=== PATIENT | female | born 1950 | race Caucasian/White ===

== ENCOUNTER 2020-04-13 05:12 | Emergency (ER) | payer MEDICARE ==
--- OUTSIDE RECORDS SUMMARY | 2020-04-13 05:14 | XMS REPORT | Summary of Care ---
:1950 Author Organization [facility] Address [address] [place] [id number] Care Team Providers Name Role Phone Mabel Queen MD Primary Care Provider Reason for Referral Radiology Services (Routine) Status Reason Specialty Diagnoses / Referred By Referred To Procedures Contact Contact New Request Diagnostic Diagnoses Chronic pain of right upper extremity [place], Radiology Procedures XR ELBOW <3 VW RIGHT Kobi Monroe MD [address] [place] [address] [place] [address] Radiology Services (Routine) Status Reason Specialty Diagnoses / Referred By Referred To Procedures Contact Contact New Request Diagnostic Diagnoses Chronic pain of right upper extremity [place], Radiology Procedures XR SHOULDER 2+ VW RIGHT Kobi Monroe MD [address] [place] [address] [place] [address] Reason for Visit Radiology Services (Routine) Status Reason Specialty Diagnoses / Referred By Referred To Procedures Contact Contact New Request Diagnostic Diagnoses Chronic pain of right upper extremity [place], Radiology Procedures XR SHOULDER 2+ VW RIGHT Kobi Monroe MD [address] [place] [address] [place] [address] Encounter Details Date Type Department Care Team Description 01/18/2020 Hospital Encounter [facility] Bran Camilo Arrived [facility] [address] [place] [address] Dr moreland [address] [place] [address] [place] [address] [place] [address] [phone] Allergies Active Allergy Reactions Severity Noted Date Comments Iodine Hives, Itching, Rash 01/11/2020 Latex Hives, Rash 01/11/2020 Morphine Anaphylaxis 01/11/2020 documented as of this encounter (statuses as of 01/19/2020) Medications Medication Sig Dispensed Refills Start Date End Date Status amLODIPine 5 mg Take 1 tablet by 30 tablet 5 01/11/2020 Active tabletIndications: mouth daily. Essential hypertension documented as of this encounter (statuses as of 01/19/2020) Active Problems Problem Noted Date Chronic pain of right upper extremity 01/17/2020 Overview: x 9 months since fall History of kidney cancer 01/11/2020 Type 2 diabetes mellitus, without long-term current us e of insulin 01/11/2020 Fibromyalgia Essential hypertension documented as of this encounter (statuses as of 01/19/2020) Social History Tobacco Use Types Packs/Day Years Used Date Never Smoker Smokeless Tobacco: Never Used Alcohol Use Drinks/Week oz/Week Comments Never Alcohol Habits Answer Date Recorded How often do you have a drink containing alcohol? Never 01/11/2020 How many drinks containing alcohol do you have on a typical Not asked 01/11/2020 day when you are drinking? How often do you have six or more drinks on one occasion? Ne leila 01/11/2020 Sex Assigned at Date Recorded Not on file COVID-19 Exposure Response Date Recorded In the last month, have you been in contact with No / Unsure 01/18/2020 7:51 AM CDT someone who was confirmed or 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 documented as of this encounter Last Filed Vital Signs Not on filedocumented in this encounter Plan of Treatment Health Maintenance Due Date Last Done Comments EYE EXAM 01/14/1962 FOOT EXAM 01/14/1970 DTaP,Tdap,and Td Vaccines (1 - Tdap) 01/14/1971 Breast Cancer Screening (MAMMOGRAM) 1992 COLON CANCER SCREENING ANNUAL FIT/FOBT 01/14/2002 COLON CANCER SCREENING FIT DNA EVERY 3 YEARS 01/14/2002 COLON CANCER SCREENING SIGMOIDOSCOPY EVERY 5 YEARS 01/14/2002 COLONOSCOPY 01/14/2002 Colorectal Cancer Screening 01/14/2002 Zoster Recombinant Vaccine (SHINGRIX) (1 of 2) 01/14/2002 Medicare Wellness Visit 01/14/2017 Osteoporosis Screening 01/14/2017 PNEUMOCOCCAL VACCINES 65+ (1 of 1 - PPSV23) 01/14/2017 INFLUENZA VACCINE (#1) 2020 HgA1C 07/13/2020 01/11/2020 CREATININE (SERUM) 01/10/2021 01/11/2020 Depression Screening 01/10/2021 01/11/2020 LDL-C 01/10/2021 01/11/2020 URINE MICROALBUMIN 01/10/2021 01/11/2020 HEPATITIS C (HCV) SCREEN Completed 01/11/2020 documented as of this encounter Procedures Procedure Name Priority Date/Time Associated Diagnosis Comme nts XR SHOULDER 2+ VW Routine 01/18/2020 8:28 AM Chronic pain of Results for this RIGHT CDT right upper procedure are i n extremity the results section. XR ELBOW <3 VW Routine 01/18/2020 8:28 AM Chronic pain of Res ults for this RIGHT CDT right upper procedure are i n extremity the results section. documented in this encounter Results XR ELBOW <3 VW RIGHT (01/18/2020 8:28 AM CDT) Specimen Narrative Performed At HISTORY: Pain. S/P fall 9 months ago. PACS/VR/DOSE FINDINGS: AP and lateral views of right elbow showed n o acute fracture or dislocation. No significant elbow joint effusion or ag gressive bone lesions seen. Mild degenerative changes are seen in the articular edges of the olecranon process and coronoid process of the ulna. Os sification noted at the origin of common flexor tendon. A sm all traction osteophyte noted at the insertion of triceps tendon. CONCLUSIONS: No acute fracture or disloc ation in 2 views of right elbow. Procedure Note [facility], [facility] Results Inft User - 2019 8:33 AM CDT HISTORY: Pain. S/P fall 9 months ago. FINDINGS: AP and lateral views of right elbow showed no acute fracture or dislocation. No significant elbow joint effusion or aggressive bone lesions seen. Mild degenerative changes are seen in the articular edges of the olecranon process and coronoid process o f the ulna. Ossification noted at the origin of common flexor tendon. A sm all traction osteophyte noted at the insertion of triceps tendon. CONCLUSIONS: No acute fracture or disloc ation in 2 views of right elbow. Performing Organization Address City/State/Zipcode Phone Number PACS/VR/DOSE XR SHOULDER 2+ VW RIGHT (01/18/2020 8:28 AM CDT) Specimen Narrative Performed At HISTORY: Pain. S/P fall 9 months ago. PACS/VR/DOSE FINDINGS: 3 views of right shoulder show ed no acute fracture or dislocation. No appreciable calcification seen in the rotator cuff tendons. 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 CONCLUSIONS: No acute fracture or disloc ation in right shoulder. Procedure Note [facility], [facility] Results Inft User - 2019 8:34 AM CDT HISTORY: Pain. S/P fall 9 months ago. FINDINGS: 3 views of right shoulder show ed no acute fracture or dislocation. No appreciable calcificatio n seen in the rotator cuff tendons. 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 CONCLUSIONS: No acute fracture or disloc ation in right shoulder. Performing Organization Address City/State/Zipcode Phone Number PACS/VR/DOSE documented in this encounter Visit Diagnoses Diagnosis Chronic pain of right upper extremity documented in this encounter Insurance Payer Benefit Plan / Subscriber ID Effective Phone Address T ype Group Dates [facility] [id number] 2019-Ruddy candelario [facility]ly [facility] - MEDICARE HMO MANAGED MEDICARE ADVANTAGE documented as of this encounter
--- OUTSIDE RECORDS SUMMARY | 2020-04-13 05:14 | XMS REPORT | Summary of Care ---
:1950 Author Organization [facility] Address [address] [place] [id number] Care Team Providers Name Role Phone Mabel Queen MD Primary Care Provider Reason for Referral Radiology Services (Routine) Status Reason Specialty Diagnoses / Procedures Referred By Sriram willis To Contact Contact Authorized Diagnostic Diagnoses History of kidney cancer Right flank pain Sagola, Radiology Procedures US RETROPERITONEAL COMPLETE Kobi Monroe MD [address] [place] [address] [place] [phone] Radiology Services (Routine) Status Reason Specialty Diagnoses / Referred By Referred To Procedures Contact Contact New Request Diagnostic Diagnoses Chronic pain of right upper extremity Sagola, Radiology Procedures XR ELBOW <3 VW RIGHT Kobi Monroe MD [address] [place] [address] [facility] [phone] Radiology Services (Routine) Status Reason Specialty Diagnoses / Referred By Referred To Procedures Contact Contact New Request Diagnostic Diagnoses Chronic pain of right upper extremity Bernice, Radiology Procedures XR SHOULDER 2+ VW RIGHT Kobi Monroe MD [address] [place] [address] [place] [address] (Routine) Status Reason Specialty Diagnoses / Referred By Referred To Procedures Contact Contact New Request Ophthalmology Diagnoses Type 2 diabetes mellitus with hyperglycemia, without long-term current use of insulin Sagola, Procedures CONSULT/REFERRAL OPHTHALMOLOGY Kobi Monroe MD [address] [place] [address] [place] [address] Reason for Visit Reason Comments Establish Care Other elevated blood sugar Referral/consult Encounter Details Date Type Department Care Team Description 01/11/2020 Office Visit [facility] Pediatric Kobi Queen ype 2 diabetes mellitus with hyperglycemia, without long-term current use of insulin (Primary Dx); and Adult Primary MD Mabel Essential hypertension; [facility] [address] History of kidney cancer; [address] [place], [place] Obesity ([address] [place] [address]-39.9); [address], [phone] Nutritional counseling; [place], [place] [phone] Exercise counseling; [phone] Need for hepatitis C screeni ng test; [phone] Chronic pain of right upper extremity; Right flank gordon n Allergies Active Allergy Reactions Severity Noted Date Comments Iodine Hives, Itching, Rash 01/11/2020 Latex Hives, Rash 01/11/2020 Morphine Anaphylaxis 01/11/2020 documented as of this encounter (statuses as of 01/17/2020) Medications Medication Sig Dispensed Refills Start Date End Date Status amLODIPine 5 mg Take 1 tablet by 30 tablet 5 01/11/2020 Active tabletIndications: mouth daily. Essential hypertension documented as of this encounter (statuses as of 01/17/2020) Active Problems Problem Noted Date Chronic pain of right upper extremity 01/17/2020 Overview: x 9 months since fall History of kidney cancer 01/11/2020 Type 2 diabetes mellitus, without long-term current us e of insulin 01/11/2020 Fibromyalgia Essential hypertension documented as of this encounter (statuses as of 01/17/2020) Social History Tobacco Use Types Packs/Day Years [...] been in contact with No / Unsure 01/12/2020 11:18 AM CDT someone who was confirmed or 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 documented as of this encounter Last Filed Vital Signs Vital Sign Reading Time Taken Comments Blood Pressure 167/82 01/11/2020 2:52 PM CDT Pulse 92 01/11/2020 2:52 PM CDT Temperature 36.8 C (98.3 F) 01/11/2020 2:44 PM CDT Respiratory Rate - - Oxygen Saturation 99% 01/11/2020 2:44 PM CDT Inhaled Oxygen Concentration - - Weight 103.3 kg (227 lb 12.8 oz) 01/11/2020 2:44 PM CDT Height 177.8 cm (5' 10") 01/11/2020 2:44 PM CDT Body Mass Index 32.69 01/11/2020 2:44 PM CDT documented in this encounter Patient Instructions Patient InstructionsVenita Dixon R - 01/11/2020 2:30 PM CDT Patient Education Coronavirus Disease 2019 (COVID-19): Prevention The best prevention is to not have contact with the SARS-CoV-2 virus. There is no vaccine yet. Canceling travel and other outings Stay informed about COVID-19 in your area. Follow local instructions about being in public. Be awareof events in your community that may be postponed or canceled, such as school and sporting events. You may be advised not to attend public gatherings. You will be advised to stay at least 6 feet from others as much as possible. This is called "social distancing." You may be advised to stay at home and isolate yourself as much as possible if COVID-19 is in your area. You may hear terms such as "self isolate, "quarantine," stay at home, penitentiary in place, and lockdown. The CDC advises that people should not travel to areas where there are COVID-19 outbreaks right now for any reason that is not urgent. For the most current CDC travel advisories, visit the CDC website at www.cdc.gov/coronavirus/2019- ncov/travelers.Dont go on cruises or do non-essential travel right now. When you are at home Wash your hands often. Use soap and clean, running water for at least 20 seconds. If you don't have access to soap and water, use an alcohol-based hand solutions executive cloud sales often. Make sure it has at least 60% alcohol. Don't touch your eyes, nose, or mouth unless you have clean hands. Dont kiss someone who is sick. If you need to cough or sneeze, do it into a tissue. Then throw the tissue into the trash. If youdon't have tissues, cough or sneeze into the bend of your elbow. When possible, don't touch "high-touch" shared surfaces such as doorknobs and handles, cabinet handles, and light switches. Clean frequently-touched home surfaces often with disinfectant. This includes desk surfaces, printers, phones, kitchen counters, tables, fridge door handle, bathroom surfaces, and any soiled surface. Closely follow disinfectant label instructions. Go to the CDCs detailed cleaning website at www.c dc.gov/coronavirus/2019-ncov/prepare/cleaning-disinfection.html. Check your home supplies. Consider keeping a 2-week supply of medicines, food, and other needed household items. Make a plan for childcare, work, and ways to stay in touch with others. Know who will help you ifyou get sick. Don't be around people who are sick. There is no evidence right now that animals spread SARS-CoV-2. But it's always a good idea to wash your hands after touching any animals. Don't touch animals that may be sick. Dont share eating or drinking utensils with sick people. If you leave home Stay at least 6 feet away from all people. When possible, don't touch "high-touch" public surfaces such as doorknobs and handles, cabinet handles, and light switches. If you touch these surfaces, try to clean them first with a disinfecting wipe. Or touch them using a tissue or paper towel. Use an alcohol-based hand solutions executive cloud sales often. Make sure it has at least 60% alcohol. Don't touch your eyes, nose, or mouth unless you have clean hands. If you need to cough or sneeze, do it into a tissue. Then throw the tissue into the trash. If youdon't have tissues, cough or sneeze into the bend of your elbow. Avoid public gatherings. The CDC advises wearing a cloth face mask in public. During a public health emergency, medical face masks may be reserved for healthcare workers. You may need to make a cloth face mask of your own. You can do this using a bandana, T- shirt, or other cloth. The [facility] has instructions on how to make a mask. If you are at a work site Stay at least 6 feet away from all people. Don't shake hands with anyone. Dont have in-person meetings. Meet over phone or video. Wash your hands often. Use soap and clean, running water for at least 20 seconds. If you don't have access to soap and water, use an alcohol-based hand solutions executive cloud sales often. Make sure it has at least 60% alcohol. Don't touch your eyes, nose, or mouth unless you have clean hands. The CDC advises wearing a cloth face mask in public. During a public health emergency, medical face masks may be reserved for healthcare workers. You may need to make a cloth face mask of your own. You can do this using a bandana, T- shirt, or other cloth. The [facility] has instructions on how to make a mask. When possible, don't touch "high-touch" public surfaces such as doorknobs and handles, cabinet handles, and light switches. If you touch these surfaces, clean them first with a disinfecting wipe. Ortouch them using a tissue or paper towel. Use office rashida one person at a time. Consider not having office coffee or tea, or group foods. Dont have meals in groups. Clean work surfaces often with disinfectant. This includes desk surfaces, photocopier, printer, phones, kitchen counters, fridge door handle, bathroom surfaces, and others. Dont touch other peoples personal work tools, such as phones, keyboards, pens, and other items. Dont touch other peoples eating or drinking utensils. If you need to cough or sneeze, do it into a tissue. Then throw the tissue into the trash. If youdon't have tissues, cough or sneeze into the bend of your elbow. If you feel sick in any way, go home and stay home. If you have been exposed to a person with COVID-19 If you've been exposed within that last 14 days to someone who is suspected of having COVID-19 or has tested positive for it: Call your healthcare provider and follow all instructions. Your activities and where you go likely will be restricted for up to 2 weeks. Check your community's instructions about activity restrictions. You may be directed to stay home, or "self-isolate." Take your temperature every morning and evening for at least 14 days. This is to check for fever.Keep a record of the readings. Watch for symptoms of the virus. Call your provider if you have symptoms. Call your provider first before going to any clinic or hospital. See the CDC's symptom bakery products checker. Stay home if you are sick for any reason. When to call your healthcare provider Call your healthcare provider if think you have COVID-19 symptoms. These can include fever, cough, and trouble breathing. They may also include body aches, sore throat, or diarrhea. Dont go to a healthcare facility before speaking to a healthcare provider. Last modified date: 09/06/2019 7write last reviewed this educational content on 09/01/201919990776-5777 The [employer]. [address] [place] [address]. All rights reserved. This information is not intended as a substitute for professional medical care. Always follow your healthcare professional's instructions. documented in this encounter Progress Notes Kobi Queen MD - 01/11/2020 2:30 PM CDT CC: Chief Complaint Patient presents with [facility] Other elevated blood sugar Referral/consult HPI Samantha Green is a 69 year old female new patient who presents to [facility] primary care and for f/u of DM2 and HTN. She also c/o chronic right flank pain. Additionally she reports chronic mild-moderate severity right upper extremity pain and decreased ROM from her right shoulder to her elbow s/p a fall 9 mos ago. This patient's other significant chronic medical conditions include h/o renal cancer and fibromyalgia. The patient's specialists: None. DM2 follow-up Anti-diabetic medications: None. Dietary compliance: Poor. Exercise frequency: None. Last Two A1C Results (UTMB/LC, POCT, QUEST): None. Glucose readings: 200s+ per her self monitoring lately. Associated symptoms: None. Denies chest pain, visual changes, numbness/tingling/paresthesia of extremities, ulcers, polyuria, or polydipsia. Last Ophthalmology visit: Over a year ago. HTN follow-up Antihypertensive medication(s): None. Dietary compliance: See above. Exercise frequency: See above. Blood pressure readings: Doesn't self-monitor. Associated symptoms: None. Denies chest pain, SOB, edema, orthopnea, PND, palpitations, dizziness,syncope, headaches, visual changes, or a new neuro deficit. Cardiovascular screening (ex. EKG, stress test) in the past 3 years?: Yes. Flank Pain Pain location: R flank Pain quality: aching Pain radiates to: Does not radiate Pain severity: Mild Onset quality: Gradual Duration: several months. Timing: Intermittent Progression: Unchanged Chronicity: Chronic Context: not trauma Context comment: H/o kidney cancer Relieved by: Nothing Ineffective treatments: Position changes Associated symptoms: no anorexia, no belching, no chest pain, no chills, no constipation, no cough, no diarrhea, no dysuria, no fatigue, no fever, no flatus, no hematemesis, no hematochezia, no hematuria, no melena, no nausea, no shortness of breath, no sore throat, no vaginal bleeding, no vaginal discharge and no vomiting Risk factors: being elderly and obesity Risk factors comment: /o kidney cancer Allergies Allergen Reactions Iodine Hives, Itching and Rash Latex Hives and Rash Morphine Anaphylaxis No current outpatient medications on file prior to visit. No current facility-administered medications on file prior to visit. Past Medical History: Diagnosis Date Essential hypertension Fibromyalgia History of kidney cancer 01/11/2020 Type 2 diabetes mellitus, without long-term current use of insulin 01/11/2020 Past Surgical History: Procedure Laterality Date EYE SURGERY cataract surgery LEFT HEART CATH NEPHRECTOMY Left Family History Problem Relation Age of Onset Heart Mother Cancer Father Cancer Brother Social History Socioeconomic History Marital status: Spouse name: Not on file Number of children: Not on file Years of education: Not on file Highest education level: Not on file Occupational History Not on file Social Needs Financial resource strain: Not on file Food insecurity Worry: Not on file Inability: Not on file Transportation needs Medical: Not on file Non-medical: Not on file Tobacco Use Smoking status: Never Smoker Smokeless tobacco: Never Used Substance and Sexual Activity Alcohol use: Never Frequency: Never Binge frequency: Never Drug use: Not on file Sexual activity: Not on file Lifestyle Physical activity Days per week: Not on file Minutes per session: Not on file Stress: Not on file Relationships Social connections Talks on phone: Not on file Gets together: Not on file Attends hinduism service: Not on file Active member of club or organization: Not on file Attends meetings of clubs or organizations: Not on file Relationship status: Not on file Intimate partner violence Fear of current or ex partner: Not on file Emotionally abused: Not on file Physically abused: Not on file Forced sexual activity: Not on file Other Topics Concern Not on file Social History Narrative Not on file Review of Systems Constitutional: Negative for chills, fatigue and fever. HENT: Negative. Negative for sore throat. Eyes: Negative. Respiratory: Negative. Negative for cough and shortness of breath. Cardiovascular: Negative. Negative for chest pain. Gastrointestinal: Negative. Negative for anorexia, constipation, diarrhea, flatus, hematemesis, hematochezia, melena, nausea and vomiting. Genitourinary: Positive for flank pain. Negative for dysuria, hematuria, vaginal bleeding and vaginal discharge. Musculoskeletal: Positive for arthralgias. Skin: Negative. Neurological: Negative. Psychiatric/Behavioral: Negative. Endocrine: Endocrine negative Vital signs BP (!) 167/82 | Pulse 92 | Temp 36.8 C (98.3 F) (Tympanic) | Ht 5' 10" (1.778 m) | Wt 227 lb12.8 oz (103.3 kg) | SpO2 99% | BMI 32.69 kg/m Physical Exam Constitutional: She is oriented to person, place, and time. She appears well- developed and well-nourished. No distress. HENT: Head: Normocephalic and atraumatic. Right Ear: External ear normal. Left Ear: External ear normal. Nose: Nose normal. Mouth/Throat: Oropharynx is clear and moist. Eyes: Pupils are equal, round, and reactive to light. Conjunctivae and EOM are normal. No scleral icterus. Neck: Neck supple. No JVD present. No tracheal deviation present. No thyromegaly present. Cardiovascular: Normal rate, regular rhythm, normal heart sounds and intact distal pulses. Exam reveals no gallop and no friction rub. No murmur heard. Pulmonary/Chest: Effort normal and breath sounds normal. No respiratory distress. She has no wheezes. She has no rales. Abdominal: Soft. Bowel sounds are normal. She exhibits no distension and no mass. There is no abdominal tenderness. There is no rebound and no guarding. Musculoskeletal: General: No edema. Right shoulder: She exhibits decreased range of motion, tenderness, bony tenderness, crepitus andpain. Right elbow: Tenderness found. Lymphadenopathy: She has no cervical adenopathy. Neurological: She is alert and oriented to person, place, and time. Skin: Skin is warm and dry. No rash noted. No pallor. Psychiatric: She has a normal mood and affect. Her behavior is normal. LABS: CBC CMP WBC (10*3/L) Date Value 01/11/2020 11.43 (H) NA (mmol/L) Date Value 01/11/2020 137 RBC (10*6/L) Date Value 01/11/2020 4.63 K (mmol/L) Date Value 01/11/2020 4.6 PLT (10*3/L) Date Value 01/11/2020 299 CALCIUM (mg/dL) Date Value 01/11/2020 10.1 HGB (g/dL) Date Value 01/11/2020 13.7 CL (mmol/L) Date Value 01/11/2020 104 HCT (%) Date Value 01/11/2020 40.8 BUN (mg/dL) Date Value 01/11/2020 19 LIPID PANEL CREATININE (mg/dL) Date Value 01/11/2020 0.83 CHOL (mg/dL) Date Value 01/11/2020 182 GLUCOSE (mg/dL) Date Value 01/11/2020 114 (H) LDL CHOL (mg/dL) Date Value 01/11/2020 94 CO2 TOTAL (mmol/L) Date Value 01/11/2020 23 HDL (mg/dL) Date Value 01/11/2020 39 (L) ALBUMIN Date Value Ref Range Status 01/11/2020 4.4 3.5 - 5.0 g/dL Final TRIG (mg/dL) Date Value 01/11/2020 245 (H) T PROTEIN Date Value Ref Range Status 01/11/2020 7.6 6.3 - 8.2 g/dL Final TSH TOTAL BILI Date Value Ref Range Status 01/11/2020 0.7 0.1 - 1.1 mg/dL Final TSH (mIU/L) Date Value 01/11/2020 0.17 (L) No components found for: BILIUNCOM No results found for: BILICONJ ALTv Date Value Ref Range Status 01/11/2020 62 (H) 5 - 35 U/L Final AST(SGOT) Date Value Ref Range Status 01/11/2020 56 (H) 13 - 40 U/L Final ALK PHOS Date Value Ref Range Status 01/11/2020 102 34 - 122 U/L Final ASSESSMENT/PLAN Will request the patient's outside medical records for my review. The available medical records in [facility] were reviewed. Diagnoses and all orders for this visit: Type 2 diabetes mellitus with hyperglycemia, without long-term current use of insulin Based on the history I gauge the patient's recent diabetes control as poor. The patient was told tocontinue the current treatment plan and we will reassess the patient's diabetes control with an A1c test. We reviewed the principles of following a diabetic diet including the concept of glycemic index and a referral to a Wood Machine Carver will be recommended if her diabetes control is suboptimal. The patient was advised to exercise regularly. The patient should self monitor her glucose and bring a record of glucose readings to each visit. She should see an Roving Changer at least annually for a dilated diabetic eye exam. The patient should see the Trouble Dispatcher for routine foot care and diabetic shoes if appropriate. The patient was educated regarding potential complications of diabetes including retinopathy, neuropathy, nephropathy, and cardiovascular disease. Pneumococcal and annual influenza vaccination were recommended if the patient is not UTD and has no contraindications. Statin and ACEIor ARB therapy were also recommended if they have not already been prescribed and if there are no contraindications. - CONSULT/REFERRAL OPHTHALMOLOGY - COMP. METABOLIC PANEL (91855); Standing - CBC WITH DIFF; Standing - GLYCOSYLATED HEMOGLOBIN (A1C); Standing - LIPID PANEL (92466)(TOTAL CHOLESTEROL, TRIGLYCERIDES, HDL); Standing - MICROALBUMIN URINE; Standing Essential hypertension The pathophysiology of HTN was reviewed with the patient. Secondary causes of HTN have been considered and lab evaluation was recommended. The patient's blood pressure goal is <130/<80 and the blood pressure is uncontrolled. Given the blood pressure has been repeatedly > 130/80, antihypertensive pharmacotherapy is warranted. Various antihypertensive medications were reviewed with the patient and the decision was made to start amlodipine as noted below. I recommended a low sodium diet/DASH diet along with exercise as part of a heart healthy lifestyle. The patient was instructed to self monitor her blood pressure once-twice daily varying the times when it is checked and to bring the record of readings to each office visit. The patient should follow-up sooner if the blood pressure istrending >/=130/80. An EKG should be done q1-3 years for cardiac surveillance. If not already followed by Cardiology, the patient should see a Teen Counselor for consultation if there is a family history of heart disease in a 1st degree relative, if any cardiovascular symptomatology develops, and for HTN that is resistant to treatment. I recommended immediate ER evaluation for acute symptoms suchas chest pain, SOB, syncope, etc. The patient was warned about the potential consequences of uncontrolled HTN including heart disease, renal failure, stroke, etc. - COMP. METABOLIC PANEL (73367); Standing - CBC WITH DIFF; Standing - LIPID PANEL (79542)(TOTAL CHOLESTEROL, TRIGLYCERIDES, HDL); Standing - THYROID STIMULATING HORMONE; Standing - URINALYSIS; Standing - MICROALBUMIN URINE; Standing - amLODIPine 5 mg tablet; Take 1 tablet by mouth daily. Obesity (BMI 30-39.9), Nutritional counseling, Exercise counseling Nutritional/Exercise Counseling and Education: - Counseled on diet, exercise, weight control and goals Need for hepatitis C screening test - HCV ANTIBODY; Standing Chronic pain of right upper extremity We discussed the Ddx of her pain. I suspect the patient has OA of the right shoulder and or rotatorcuff pathology. Imaging was recommended for further evaluation. Ice alt with/OR heat can be applied to painful areas (cautiously or avoid if diabetic). Tylenol Arthritis formula can be used PRN pain. NSAID therapy was not recommended given the renal, GI, and CVS risks. I will consider PT, Orthopaedics, or pain management referral based on the imaging results and the patient's response to the recommended treatment medications. - XR SHOULDER 2+ VW RIGHT; Future - XR ELBOW <3 VW RIGHT; Future Right flank pain, History of kidney cancer We discussed the Ddx of flank pain. The etiology of the patient's pain is unclear. A lab and imaging work-up were undertaken as noted. I recommended that she increase his intake of non-caffeinated fluids. Tylenol PRN pain. A muscle relaxant can be considered. ER precautions were given for severepain, pain w/ fever, intractable vomiting, gross hematuria, urinary retention, etc. - COMP. METABOLIC PANEL (28062); Standing - CBC WITH DIFF; Standing - URINALYSIS; Standing - US RETROPERITONEAL COMPLETE; Future Plan of care, desired health behaviors, goals, Ddx, and any prescribed medications were discussed with the patient. This visit did not involve counseling and coordination that comprised more than 50% of the visit time. Education resources and self-management tools were provided and reviewed with the AVS. Patient/guardian/family verbalized understanding and agrees to the plan of care. Barriers tocare: None. Ability to manage care: Good. Advanced care planning (living will) information was not given/offered to the patient to review for discussion at a future visit. If applicable, the [facility] database was accessed to review any controlled substance prescription claims data. If the patient is taking prescribed medications, the [employer] prescription claims data in [employer] was reviewed to assess patient compliance with the medication treatment plan. COVID-19 precautions given including frequent handwashing, social distancing, cleaning and disinfecting, indications for testing, etc. Follow-up: Return TBD based on diagnostic testing. Follow-up sooner if any problems or concerns. Scribe Attestation Venita Chery , am scribing for, and in the presence of, Kobi Queen MD who performed the services described here-in. Venita Dixon, January 11, 2020, 2:31 PM Physician Attestation I, Kobi Queen MD, personally performed the services described in this documentation , as scribed by, Venita Dixon in my presence and it is both accurate and complete. Kobi Queen MD January 11, 2020, 2:31 PM documented in this encounter Plan of Treatment Date Type Specialty Care Team Description 01/18/2020 Appointment Radiology Julian Queen MD [address] [place] [address] [phone] Name Type Priority Associated Diagnoses Order S chedule XR SHOULDER 2+ VW RIGHT IMAGING Routine Chronic pain of r ight Expected: upper extremity 01/11/2020, Expires: 2020 XR ELBOW <3 VW RIGHT IMAGING Routine Chronic pain of righ t Expected: upper extremity 01/11/2020, Expires: 2020 US RETROPERITONEAL COMPLETE IMAGING Routine History of ki dney Expected: cancer 01/11/2020, Right flank pain Expires: Health Maintenance Due Date Last Done Comments [...] Completed 01/11/2020 documented as of this encounter Results MICROALBUMIN URINE (01/11/2020 3:31 PM CDT) Pathologist Sig nature CREAT U 144.0 mg/dL [facility] MICROALB U 12 0 - 45 ug/mL [facility] MICROAL/CR 8 0 - 30 mg/g of [facility] creatinine SERVICES Specimen Urine Narrative Performed At Normal: <30 mg/g creatinine [facility] Microalbuminuria: 30 - 299 mg/g creatini ne Clinical albuminuria: > 300 mg/g creatinine Performing Organization Address City/State/Zipcode Phone Number [facility] CLIA: [id number] [place] [address] [place] [address] URINALYSIS (01/11/2020 3:31 PM CDT) Pathologist Sig nature APPEARANCE Clear Clear [facility] COLOR Yellow Yellow [facility] PH 5.0 4.8 - 8.0 [facility] SP GRAVITY 1.019 1.003 - 1.030 [facility] GLU U QUAL Normal Normal [facility] BLOOD Negative Negative [facility] KETONES Negative Negative [facility] PROTEIN Negative Negative [facility] UROBILIN Normal Normal [facility] BILIRUBIN Negative Negative [facility] NITRITE Negative Negative [facility] LEUK KAHLIL Negative Negative [facility] RBC/HPF 2 0 - 3 HPF [facility] WBC/HPF 1 0 - 5 HPF [facility] BACTERIA Few (A) Negative [facility] MUCOUS Slight (A) Negative LPF [facility] SQ EPITH 5 HPF [facility] Specimen Urine - URINE, CLEAN CATCH Performing Organization Address [facility] Phone Number [facility] CLIA: [id number] [place] [address] THYROID STIMULATING HORMONE (01/11/2020 3:29 PM CDT) Pathologist Sig nature TSH 0.17 (L) 0.45 - 4.70 mIU/L [facility] Specimen Blood Performing Organization Address [facility] Phone Number [facility] CLIA: [id number] [place] [address] LIPID PANEL ([id number])(TOTAL CHOLESTEROL, TRIGLYCERIDES, HDL) (01/11/2020 3:29 PM CDT) Pathologist Sig nature CHOL 182 120 - 200 mg/dL [facility] HDL 39 (L) >50 mg/dL [facility] HDLC RATIO 4.7 (H) <=4.5 [facility] TRIG 245 (H) 30 - 170 mg/dL [facility] LDL CHOL 94 <=160 mg/dL [facility] VLDL 49 5 - 60 mg/dL [facility] Specimen Blood Performing Organization Address [facility] Phone Number [facility] CLIA: [id number] [place] [address] HCV ANTIBODY (01/11/2020 3:29 PM CDT) Pathologist Sig nature HCV Ab Negative [facility] HCV Semi-Quantitative 0.01 [facility] Specimen Blood Performing Organization Address City/[facility] Phone Number [facility] CLIA: [id number] [place] [address] [place] [address] GLYCOSYLATED HEMOGLOBIN (A1C) (01/11/2020 3:29 PM CDT) Pathologist Sig nature HGB A1C 6.2 (H) 4.0 - 6.0 % [facility] Specimen Blood Narrative Performed At %A1C (NGSP) Interpretation (ADA) [facility] 4.8-5.6 Normal or (Non-Diabetic Ra nge) 5.7-6.4 Increased Risk (Pre-Diabet ic) >6.5 Diabetes Indicated Performing Organization Address [facility] Phone Number [facility] CLIA: [id number] [place] [address] CBC WITH DIFF (01/11/2020 3:29 PM CDT) Pathologist Sig nature WBC 11.43 (H) 4.30 - 11.10 [facility] 10*3/L [facility] RBC 4.63 3.93 - 5.25 [facility] 10*6/L [facility] HGB 13.7 11.6 - 15.0 [facility] g/dL [facility] HCT 40.8 35.7 - 45.2 % [facility] MCV 88.1 80.6 - 95.5 fL [facility] MCH 29.6 25.9 - 32.8 pg [facility] MCHC 33.6 31.6 - 35.1 [facility] g/dL [facility] RDW-SD 40.4 39.0 - 49.9 fL [facility] RDW-CV 12.6 12.0 - 15.5 % [facility] PLT 299 166 - 358 [facility] 10*3/L [facility] MPV 10.2 9.5 - 12.9 fL [facility] NRBC/100 WBC 0.0 0.0 - 10.0 /100 [facility] WBCs [facility] NRBC x10^3 <0.01 10*3/L [facility] GRAN MAT (NEUT) % 69.5 % [facility] IMM GRAN % 0.90 % [facility] LYMPH % 23.0 % [facility] MONO % 4.5 % [facility] EOS % 1.4 % [facility] BASO % 0.7 % [facility] GRAN MAT x10^3(ANC) 7.94 (H) 1.88 - 7.09 [facility] 10*3/uL [facility] IMM GRAN x10^3 0.10 (H) 0.00 - 0.06 [facility] 10*3/uL [facility] LYMPH x10^3 2.63 1.32 - 3.29 [facility] 10*3/uL [facility] MONO x10^3 0.52 0.33 - 0.92 [facility] 10*3/uL [facility] EOS x10^3 0.16 0.03 - 0.39 [facility] 10*3/uL [facility] BASO x10^3 0.08 (H) 0.01 - 0.07 [facility] 10*3/uL [facility] Specimen Blood Performing Organization Address City/State/Zipcode Phone Number [facility] CLIA: [id number] [place] [address] COMP. METABOLIC PANEL ([id number]) (01/11/2020 3:29 PM CDT) Pathologist Sig nature NA 137 135 - 145 [facility] mmol/L [facility] K 4.6 3.5 - 5.0 [facility] mmol/L [facility] CL 104 98 - 108 mmol/L [facility] CO2 TOTAL 23 23 - 31 mmol/L [facility] AGAP 10 2 - 16 [facility] BUN 19 7 - 23 mg/dL [facility] GLUCOSE 114 (H) 70 - 110 mg/dL [facility] CREATININE 0.83 0.50 - 1.04 [facility] mg/dL [facility] TOTAL BILI 0.7 0.1 - 1.1 mg/dL [facility] CALCIUM 10.1 8.6 - 10.6 [facility] mg/dL [facility] T PROTEIN 7.6 6.3 - 8.2 g/dL [facility] ALBUMIN 4.4 3.5 - 5.0 g/dL [facility] ALK PHOS 102 34 - 122 U/L [facility] ALTv 62 (H) 5 - 35 U/L [facility] AST(SGOT) 56 (H) 13 - 40 U/L [facility] eGFR Calculation 68.6 mL/min/1.73m2 [facility] ([facility] [place]) eGFR Calculation 83.1 mL/min/1.73m2 [facility] () [facility] Specimen Blood Narrative Performed At Association of Glomerular Filtration Rate (GFR) [facility] and Staging of Kidney Disease* + + +- + | GFR (mL/min/1.73 m2) | With Kidney Damage | Without Kidney Damage + + +- + | >90 | Stage one | Normal + + +- + | 60-89 | Stage two | Decreased GFR + + +- + | 30-59 | Stage three | Stage three + + +- + | 15-29 | Stage four | Stage four + + +- + | <15 (or dialysis) | Stage five | Stage five + + +- + *Each stage assumes the associated GFR level has been in effect for at least three months. Stages 1 to 5, with or without kidney disease, indicate chronic kidney disease. Notes: Determination of stages one and two (with eGFR >59mL/min/1.73 m2) requires estimation of kidney damage for at least three months as defined by structural or functional abnormalities of the kidney, manifested by either: Pathological abnormalities or Markers of kidney damage (including abnormalities in the composition of the blood or urine or abnormalities in imaging tests). Performing Organization Address City/State/Zipcode Phone Number [facility] CLIA: [id number] [place] [address] [facility] [address] documented in this encounter Visit Diagnoses Diagnosis Type 2 diabetes mellitus with hyperglyce bryan, without long-term current use of insulin - Primary Essential hypertension Unspecified essential hypertension History of kidney cancer Personal history of malignant neoplasm o f kidney Obesity (BMI 30-39.9) Obesity, unspecified Nutritional counseling Exercise counseling Need for hepatitis C screening test Special screening examination for other specified viral diseases Chronic pain of right upper extremity Right flank pain Abdominal pain, unspecified site documented in this encounter Insurance Payer Benefit Plan / Subscriber ID Effective Phone Address T ype Group Dates [facility] [id number] 2019-Ruddy candelario [facility] - MEDICARE nt HMO MANAGED MEDICARE ADVANTAGE documented as of this encounter
--- OUTSIDE RECORDS SUMMARY | 2020-04-13 05:14 | XMS REPORT | Continuity of Care Document ---
:1950 Author Organization [facility] t Address [address] [place] [address] Care Team Providers Name Role Phone Lab, Guille Pob I Attending Clinician Unavailable Mabel Queen MD Attending Clinician Ben CARRERO Attending Clinician Doctor Unassigned, Name Attending Clinician Unavailable Problems This patient has no known problems. Allergies, Adverse Reactions, Alerts This patient has no known allergies or adverse reactions. Medications This patient has no known medications. Procedures This patient has no known procedures. 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 00:00:00 00:00:00 Only Unassigned, DRU [id number] [place] [facility] [phone] [id number] 2020-04-04 2020-04-04 [facility] [id number] 00:00:00 00:00:00 Kobi Witt [id number] [place] [id number] Professio [phone] nal [facility] Building 2020-03-31 2020-03-31 Telemedici [facility] [id number] 13:57:45 17:47:16 ne Visit Kobi Rdz [id number] [place] [id number] Professio [phone] [place] [address] [address] 2020-03-24 2020-03-24 Office [facility] [id number] 15:20:22 16:25:56 Visit Kirstie CRISTEL [id number] [place] [id number] C[facility] [phone] [facility] Results This patient has no known results.
--- OUTSIDE RECORDS SUMMARY | 2020-04-13 05:14 | XMS REPORT | Summary of Care ---
:1950 Author Organization [facility] Address [address] [place] [address] Care Team Providers Name Role Phone Mabel Queen MD Primary Care Provider Encounter Details Date Type Department Care Team Description 01/18/2020 Orders Only [facility] Doctor Unassigned, No [address] [facility] [place] [address] [address] [place] [address] Allergies Active Allergy Reactions Severity Noted Date Comments Iodine Hives, Itching, Rash 01/11/2020 Latex Hives, Rash 01/11/2020 Morphine Anaphylaxis 01/11/2020 documented as of this encounter (statuses as of 01/18/2020) Medications Medication Sig Dispensed Refills Start Date End Date Status amLODIPine 5 mg Take 1 tablet by 30 tablet 5 01/11/2020 Active tabletIndications: mouth daily. Essential hypertension documented as of this encounter (statuses as of 01/18/2020) Active Problems Problem Noted Date Chronic pain of right upper extremity 01/17/2020 Overview: x 9 months since fall History of kidney cancer 01/11/2020 Type 2 diabetes mellitus, without long-term current us e of insulin 01/11/2020 Fibromyalgia Essential hypertension documented as of this encounter (statuses as of 01/18/2020) Social History Tobacco Use Types Packs/Day Years [...] filedocumented in this encounter Plan of Treatment Date Type Specialty Care Team Description 01/18/2020 Appointment Radiology Julian Queen MD [address] [place] [address] [phone] Health Maintenance Due Date Last Done Comments [...] Name Priority Date/Time Associated Diagnosis Comme nts ASSIGNMENT OF BENEFITS Routine 01/18/2020 7:47 AM CDT documented in this encounter Results Not on filedocumented in this encounter Insurance Payer Benefit Plan / Subscriber ID Effective Phone Address T ype Group Dates [employer] [id number] 2019-Prese Me dicare Adv HEALTHCARE - MEDICARE nt O MANAGED MEDICARE ADVANTAGE documented as of this encounter
--- OUTSIDE RECORDS SUMMARY | 2020-04-13 05:14 | XMS REPORT | Summary of Care ---
:1950 Author Organization [facility] Address [address] [place] [address] Care Team Providers Name Role Phone Mabel Queen MD Primary Care Provider Reason for Referral Radiology Services (Routine) Status Reason Specialty Diagnoses / Procedures Referred By Sriram willis To Contact Contact Authorized Diagnostic Diagnoses History of kidney cancer Right flank pain [place], Radiology Procedures US RETROPERITONEAL COMPLETE Kobi Monroe MD [address] [place] [address] [place] [phone] Radiology Services (Routine) Status Reason Specialty Diagnoses / Referred By Referred To Procedures Contact Contact New Request Diagnostic Diagnoses Chronic pain of right upper extremity [place], Radiology Procedures XR ELBOW <3 VW RIGHT Kobi Monroe MD [address] [place] [address] [facility] [phone] Radiology Services (Routine) Status Reason Specialty Diagnoses / Referred By Referred To Procedures Contact Contact New Request Diagnostic Diagnoses Chronic pain of right upper extremity [place], Radiology Procedures XR SHOULDER 2+ VW RIGHT Kobi Monroe MD [address] [place] [address] [place] [address] (Routine) Status Reason Specialty Diagnoses / Referred By Referred To Procedures Contact Contact New Request Ophthalmology Diagnoses Type 2 diabetes mellitus with hyperglycemia, without long-term current use of insulin [place], Procedures CONSULT/REFERRAL OPHTHALMOLOGY Kobi Monroe MD [address] [place] [address] [place] [address] Reason for Visit Reason Comments Establish Care Other elevated blood sugar Referral/consult Encounter Details Date Type Department Care Team Description 01/11/2020 Office Visit [facility] Pediatric Kobi Queen ype 2 diabetes mellitus with hyperglycemia, without long-term current use of insulin (Primary Dx); and Adult Primary MD Mabel Essential hypertension; [facility] [address] History of kidney cancer; [address] [place], [place] Obesity (B IA 30-39.9); Drive, [address] [address] Nutritional counseling; [place], [place] [phone] Exercise counseling; [phone] Need for hepatitis C screeni ng test; [phone] Chronic pain of right upper extremity; Right [...] as "self isolate, "quarantine," stay at home, senior care in place, and lockdown. The CDC advises [...] soap and water, use an alcohol-based hand director of planning often. Make sure it has at least [...] or paper towel. Use an alcohol-based hand director of planning often. Make sure it has at least [...] bandana, T- shirt, or other cloth. The [facility] has instructions on how to make a [...] soap and water, use an alcohol-based hand director of planning often. Make sure it has at least [...] bandana, T- shirt, or other cloth. The [facility] has instructions on how to make a [...] clinic or hospital. See the CDC's symptom baggage checker. Stay home if you are sick for any reason. When to call your healthcare provider Call your healthcare provider if think you have COVID-19 symptoms. These can include fever, cough, and trouble breathing. They may also include body aches, sore throat, or diarrhea. Dont go to a healthcare facility before speaking to a healthcare provider. Last modified date: 09/06/2019 [employer] last reviewed this educational content on 09/01/201919991255-5619 The [employer]. [address] [place] [address]. All rights reserved. This information is not intended as a substitute for professional medical care. Always follow your healthcare professional's instructions. documented in this encounter Progress Notes Kobi Queen MD - 01/11/2020 2:30 PM CDT CC: Chief Complaint Patient presents with [facility] Other elevated blood sugar Referral/consult HPI Samantha Green is a 69 year old female new patient who presents to on [facility] primary care and for f/u of DM2 [...] file Gets together: Not on file Attends islam service: Not on file Active member of [...] my review. The available medical records in [facility] were reviewed. Diagnoses and all orders for [...] glycemic index and a referral to a Mold Yard Supervisor will be recommended if her diabetes control is suboptimal. The patient was advised to exercise regularly. The patient should self monitor her glucose and bring a record of glucose readings to each visit. She should see an Bracelet Form Coverer at least annually for a dilated diabetic eye exam. The patient should see the Sap Project Manager for routine foot care and diabetic shoes [...] - CONSULT/REFERRAL OPHTHALMOLOGY - COMP. METABOLIC PANEL (26662); Standing - CBC WITH DIFF; Standing - GLYCOSYLATED HEMOGLOBIN (A1C); Standing - LIPID PANEL (08030)(TOTAL CHOLESTEROL, TRIGLYCERIDES, HDL); Standing - MICROALBUMIN URINE; [...] by Cardiology, the patient should see a Rice Milling Supervisor for consultation if there is a family [...] failure, stroke, etc. - COMP. METABOLIC PANEL (92644); Standing - CBC WITH DIFF; Standing - LIPID PANEL (70979)(TOTAL CHOLESTEROL, TRIGLYCERIDES, HDL); Standing - THYROID STIMULATING [...] urinary retention, etc. - COMP. METABOLIC PANEL (73303); Standing - CBC WITH DIFF; Standing - [...] at a future visit. If applicable, the [facility] database was accessed to review any controlled substance prescription claims data. If the patient is taking prescribed medications, the [employer] prescription claims data in [employer] was reviewed to assess patient compliance with [...] Description 01/18/2020 Appointment Radiology Julian Queen MD [address] [place] [address] [phone] Name Type Priority Associated Diagnoses Order [...] Pathologist Sig nature CREAT U 144.0 mg/dL [facility] MICROALB U 12 0 - 45 ug/mL [facility] MICROAL/CR 8 0 - 30 mg/g of [facility] creatinine SERVICES Specimen Urine Narrative Performed At Normal: <30 mg/g creatinine [facility] Microalbuminuria: 30 - 299 mg/g creatini ne Clinical albuminuria: > 300 mg/g creatinine Performing Organization Address City/State/Zipcode Phone Number [facility] CLIA: [id number] [place] [address] [place] [address] URINALYSIS (01/11/2020 3:31 PM CDT) Pathologist Sig nature APPEARANCE Clear Clear [facility] COLOR Yellow Yellow [facility] PH 5.0 4.8 - 8.0 [facility] SP GRAVITY 1.019 1.003 - 1.030 [facility] GLU U QUAL Normal Normal [facility] BLOOD Negative Negative [facility] KETONES Negative Negative [facility] PROTEIN Negative Negative [facility] UROBILIN Normal Normal [facility] BILIRUBIN Negative Negative [facility] NITRITE Negative Negative [facility] LEUK KAHLIL Negative Negative [facility] RBC/HPF 2 0 - 3 HPF [facility] WBC/HPF 1 0 - 5 HPF [facility] BACTERIA Few (A) Negative [facility] MUCOUS Slight (A) Negative LPF [facility] SQ EPITH 5 HPF [facility] Specimen Urine - URINE, CLEAN CATCH Performing Organization Address [facility] Phone Number [facility] CLIA: [id number] [place] [address] THYROID STIMULATING HORMONE (01/11/2020 3:29 PM CDT) Pathologist Sig nature TSH 0.17 (L) 0.45 - 4.70 mIU/L [facility] Specimen Blood Performing Organization Address [facility] Phone Number [facility] CLIA: [id number] [place] [address] LIPID PANEL (28496)(TOTAL CHOLESTEROL, TRIGLYCERIDES, HDL) (01/11/2020 3:29 PM CDT) Pathologist Sig nature CHOL 182 120 - 200 mg/dL [facility] HDL 39 (L) >50 mg/dL [facility] HDLC RATIO 4.7 (H) <=4.5 [facility] TRIG 245 (H) 30 - 170 mg/dL [facility] LDL CHOL 94 <=160 mg/dL [facility] VLDL 49 5 - 60 mg/dL [facility] Specimen Blood Performing Organization Address [facility] Phone Number [facility] CLIA: [id number] [place] [address] HCV ANTIBODY (01/11/2020 3:29 PM CDT) Pathologist Sig nature HCV Ab Negative [facility] HCV Semi-Quantitative 0.01 [facility] Specimen Blood Performing Organization Address City/[facility] Phone Number [facility] CLIA: [id number] [place] [address] [place] [address] GLYCOSYLATED HEMOGLOBIN (A1C) (01/11/2020 3:29 PM CDT) Pathologist Sig nature HGB A1C 6.2 (H) 4.0 - 6.0 % [facility] Specimen Blood Narrative Performed At %A1C (NGSP) Interpretation (ADA) [facility] 4.8-5.6 Normal or (Non-Diabetic Ra nge) 5.7-6.4 Increased Risk (Pre-Diabet ic) >6.5 Diabetes Indicated Performing Organization Address [facility] Phone Number [facility] CLIA: [id number] [place] [address] CBC WITH DIFF (01/11/2020 3:29 PM CDT) Pathologist Sig nature WBC 11.43 (H) 4.30 - 11.10 [facility] 10*3/L [facility] RBC 4.63 3.93 - 5.25 [facility] 10*6/L [facility] HGB 13.7 11.6 - 15.0 [facility] g/dL [facility] HCT 40.8 35.7 - 45.2 % [facility] MCV 88.1 80.6 - 95.5 fL [facility] MCH 29.6 25.9 - 32.8 pg [facility] MCHC 33.6 31.6 - 35.1 [facility] g/dL [facility] RDW-SD 40.4 39.0 - 49.9 fL [facility] RDW-CV 12.6 12.0 - 15.5 % [facility] PLT 299 166 - 358 [facility] 10*3/L [facility] MPV 10.2 9.5 - 12.9 fL [facility] NRBC/100 WBC 0.0 0.0 - 10.0 /100 [facility] WBCs [facility] NRBC x10^3 <0.01 10*3/L [facility] GRAN MAT (NEUT) % 69.5 % [facility] IMM GRAN % 0.90 % [facility] LYMPH % 23.0 % [facility] MONO % 4.5 % [facility] EOS % 1.4 % [facility] BASO % 0.7 % [facility] GRAN MAT x10^3(ANC) 7.94 (H) 1.88 - 7.09 [facility] 10*3/uL [facility] IMM GRAN x10^3 0.10 (H) 0.00 - 0.06 [facility] 10*3/uL [facility] LYMPH x10^3 2.63 1.32 - 3.29 [facility] 10*3/uL [facility] MONO x10^3 0.52 0.33 - 0.92 [facility] 10*3/uL [facility] EOS x10^3 0.16 0.03 - 0.39 [facility] 10*3/uL [facility] BASO x10^3 0.08 (H) 0.01 - 0.07 [facility] 10*3/uL [facility] Specimen Blood Performing Organization Address City/State/Zipcode Phone Number [facility] CLIA: [id number] [place] [address] COMP. METABOLIC PANEL ([id number]) (01/11/2020 3:29 PM CDT) Pathologist Sig nature NA 137 135 - 145 [facility] mmol/L [facility] K 4.6 3.5 - 5.0 [facility] mmol/L [facility] CL 104 98 - 108 mmol/L [facility] CO2 TOTAL 23 23 - 31 mmol/L [facility] AGAP 10 2 - 16 [facility] BUN 19 7 - 23 mg/dL [facility] GLUCOSE 114 (H) 70 - 110 mg/dL [facility] CREATININE 0.83 0.50 - 1.04 [facility] mg/dL [facility] TOTAL BILI 0.7 0.1 - 1.1 mg/dL [facility] CALCIUM 10.1 8.6 - 10.6 [facility] mg/dL [facility] T PROTEIN 7.6 6.3 - 8.2 g/dL [facility] ALBUMIN 4.4 3.5 - 5.0 g/dL [facility] ALK PHOS 102 34 - 122 U/L [facility] ALTv 62 (H) 5 - 35 U/L [facility] AST(SGOT) 56 (H) 13 - 40 U/L [facility] eGFR Calculation 68.6 mL/min/1.73m2 [facility] (Non[facility]AT[facility] [place]) eGFR Calculation 83.1 mL/min/1.73m2 [facility] () [facility] Specimen Blood Narrative Performed At Association of Glomerular Filtration Rate (GFR) [facility] and Staging of Kidney Disease* + [...] tests). Performing Organization Address City/State/Zipcode Phone Number [facility] CLIA: [id number] [place] [address] [facility] [address] documented in this encounter [...] Effective Phone Address T ype Group Dates [facility] [id number] 2019-Ruddy candelario [facility] - MEDICARE nt HMO MANAGED MEDICARE ADVANTAGE documented as of this encounter
--- OUTSIDE RECORDS SUMMARY | 2020-04-13 05:15 | XMS REPORT | Summary of Care ---
:[address] [facility] Address [address] [place] [address] Care Team Providers Name Role Phone Mabel Queen MD Primary Care Provider Reason for Referral MRI/CAT Scan (Routine) Status Reason Specialty Diagnoses / Referred By Referred To Procedures Contact Contact New Request Diagnostic Diagnoses Chronic right flank pain Personal history of renal cancer Hydronephrosis, right [place], Radiology Procedures CT ABDOMEN PELVIS WO CONTRAST Kobi Monroe MD [address] [place] [address] [place] [address] Reason for Visit Reason Comments Orders Encounter Details Date Type Department Care Team Description 01/21/2020 Case Management [facility] Pediatric Julian Queen, Orders and Adult Primary Care- MD Witt [address] [place] [address] [place] [address] [phone] [place] [address] [phone] Allergies Active Allergy Reactions Severity Noted Date Comments Iodine Hives, Itching, Rash 01/11/2020 Latex Hives, Rash 01/11/2020 Morphine Anaphylaxis 01/11/2020 documented as of this encounter (statuses as of 01/21/2020) Medications Medication Sig Dispensed Refills Start Date End Date Status amLODIPine 5 mg Take 1 tablet by 30 tablet 5 01/11/2020 Active tabletIndications: mouth daily. Essential hypertension documented as of this encounter (statuses as of 01/21/2020) Active Problems Problem Noted Date Hydronephrosis, right 01/21/2020 Chronic right flank pain 01/21/2020 Chronic pain of right upper extremity 01/17/2020 Overview: x 9 months since fall History of kidney cancer 01/11/2020 Type 2 diabetes mellitus, without long-term current us e of insulin 01/11/2020 Fibromyalgia Essential hypertension documented as of this encounter (statuses as of 01/21/2020) Social History Tobacco Use Types Packs/Day Years [...] Treatment Date Type Specialty Care Team Description 02/03/2020 Office Visit Ophthalmology Kota Elizabeth D, OD [address] [place] [address] [place] [address] [phone] Name Type Priority Associated Diagnoses Order S chedule CT ABDOMEN PELVIS WO IMAGING Routine Chronic rig ht flank pain Expected: 01/21/2020, CONTRAST Personal history of Expires: 01/20/2021 renal cancer Hydronephrosis, right Health Maintenance Due Date Last Done Comments [...] 01/11/2020 documented as of this encounter Results Not on filedocumented in this encounter Visit Diagnoses Diagnosis Hydronephrosis, right - Primary Hydronephrosis Chronic right flank pain Abdominal pain, unspecified site Personal history of renal cancer Personal history of malignant neoplasm o f kidney documented in this encounter Insurance Payer Benefit Plan / Subscriber ID Effective Phone Address T e Group [facility] SERGIO/JOANN [id number] 2019-Ruddy Bowens [facility]IC[facility] MA[facility]ED MEDICARE ADVANTAGE documented as of this encounter
--- OUTSIDE RECORDS SUMMARY | 2020-04-13 05:15 | XMS REPORT | Summary of Care ---
:1950 Author Organization [facility] Address [address] [place] [address] Care Team Providers Name Role Phone Mabel Queen MD Primary Care Provider Reason for Visit Reason Comments Diabetic Eye Exam (Routine) Status Reason Specialty Diagnoses / Procedures Referred By Sriram willis To Contact Contact Closed Ophthalmology Diagnoses Type 2 diabetes mellitus with hyperglycemia, without long-term current use of insulin Kobi Queen Procedures CONSULT/REFERRAL OPHTHALMOLOGY MD Mabel [address] [place] [address] [place] [address] Encounter Details Date Type Department Care Team Description 02/03/2020 Office Visit [facility] Eye Bharathi Elizabeth Type 2 diabetes mellitus without retinopathy (Primary Dx); [facility] D, OD Essential hypertension; [address] Pseudophakia of both eyes; [place] [address] Refractive error; [place], [place] [phone] Posterior capsular opacification, right eye [phone] Allergies Active Allergy Reactions Severity Noted Date Comments Iodine Hives, Itching, Rash 01/11/2020 Latex Hives, Rash 01/11/2020 Morphine Anaphylaxis 01/11/2020 documented as of this encounter (statuses as of 02/03/2020) Medications Medication Sig Dispensed Refills Start Date End Date Status amLODIPine 5 mg Take 1 tablet by 30 tablet 5 01/11/2020 Active tabletIndications: mouth daily. Essential hypertension documented as of this encounter (statuses as of 02/03/2020) Active Problems Problem Noted Date Hydronephrosis, right 01/21/2020 Chronic right flank pain 01/21/2020 Chronic pain of right upper extremity 01/17/2020 Overview: x 9 months since fall History of kidney cancer 01/11/2020 Type 2 diabetes mellitus, without long-term current us e of insulin 01/11/2020 Fibromyalgia Essential hypertension documented as of this encounter (statuses as of 02/03/2020) Social History Tobacco Use Types Packs/Day Years [...] been in contact with No / Unsure 02/03/2020 10:41 AM CDT someone who was confirmed or 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 documented as of this encounter Last Filed Vital Signs Vital Sign Reading Time Taken Comments Blood Pressure - - Pulse - - Temperature - - Respiratory Rate - - Oxygen Saturation - - Inhaled Oxygen Concentration - - Weight 103 kg (227 lb) 02/03/2020 10:41 AM CDT Height - - Body Mass Index 32.57 01/11/2020 2:44 PM CDT documented in this encounter Progress Notes Bharathi Elizabeth, OD - 02/03/2020 10:45 AM CDT Diabetic Surveillance Eye Examination Note: Patient is concerned for eye health and vision with concerns for possible diabetic retinopathy in the context of systemic diabetes treatment. HGB A1C (%) Date Value 01/11/2020 6.2 (H) HGB A1C (%) Date Value 01/11/2020 6.2 (H) No results found for: [id number] Patient's Medications START taking these medications No medications on file CONTINUE taking these medications which have NOT CHANGED AMLODIPINE 5 MG TABLET Take 1 tablet by mouth daily. START taking Modified Medications as Prescribed No medications on file STOP taking these medications No medications on file Encounter Diagnoses Name Primary? Type 2 diabetes mellitus without retinopathy Yes Essential hypertension Pseudophakia of both eyes Refractive error Posterior capsular opacification, right eye Discussed no evidence of active diabetic retinopathy detected at this time. Emphasized need for aggressive control and monitoring of blood sugar, blood pressure and cholesterol levels. Advised patient that HA1C should be < 7. Emphasized importance of regular eye care for diabetic retinopathy surveillance and potential sequelae of non-compliance. Patient verbalized understanding of discussion and instructions. All of the patient's questions were addressed and answered. Unless specified below, patient has refused or deferredrefractive studies today, and has opted to continue with the current glasses and / or contact lenses. Final Rx Sphere Cylinder [place] Dist [facility] Add Near [facility] Right +1.00 +1.50 145 20/40 +2.25 20/20 Left +0.75 Sphere 20/25 +2.25 20/20 Expiration Date: 02/03/2021 Discussed PCO OD and recommended YAG. Patient opts for spec rx now with plan to schedule YAG OD in the future. Disposition Patient advised to return to the clinic as scheduled for pertinent surveillance care. Bharathi Elizabeth, ELISABETH Nurse Practitioner Manager Clinical Professor Director of Ambulatory Medicine for Ophthalmology, [place] Clinical and Trimmer Hand: Geometric and Ophthalmic Optics [facility] Department of Ophthalmology And Visual Sciences documented in this encounter Plan of Treatment Date Type Specialty Care Team Description 02/10/2020 Office Visit Family Medicine Julian Queen MD [address] [place] [address] [phone] Health Maintenance Due Date Last Done [...] filedocumented in this encounter Visit Diagnoses Diagnosis Type 2 diabetes mellitus without retinop athy - Primary Type II or unspecified type diabetes freeman litus without mention of complication, not stated as uncontrolled Essential hypertension Unspecified essential hypertension Pseudophakia of both eyes Lens replaced by other means Refractive error Unspecified disorder of refraction and a ccommodation Posterior capsular opacification, right eye After-cataract, unspecified documented in this encounter Insurance Payer Benefit Plan / Subscriber ID Effective Phone Address T e Group [facility] [id number] 2019-Preszenaida candelario [facility]ALTH[facility] - MEDICARE HMO MANAGED MEDICARE ADVANTAGE documented as of this encounter
--- OUTSIDE RECORDS SUMMARY | 2020-04-13 05:15 | XMS REPORT | Summary of Care ---
:1950 Author Organization [facility] - [facility] Address [address] [place] [address] Care Team Providers Name Role Phone Mabel Queen MD Primary Care Provider Reason for Visit Reason Comments Diabetic Eye Exam (Routine) Status Reason Specialty Diagnoses / Procedures Referred By Sriram willis To Contact Contact Closed Ophthalmology Diagnoses Type 2 diabetes mellitus with hyperglycemia, without long-term current use of insulin Kobi Queen Procedures CONSULT/REFERRAL OPHTHALMOLOGY MD Mabel [address] [place] [address] [place] [address] Encounter Details Date Type Department Care Team Description 02/03/2020 Office Visit [facility] Eye Bharathi Elizabeth Type 2 diabetes mellitus without retinopathy (Primary Dx); [facility] D, OD Essential hypertension; [address] Pseudophakia of both eyes; [place] [address] Refractive error; [place], [place] [phone] Posterior capsular opacification, right eye [address] [phone] Allergies Active Allergy Reactions Severity Noted Date [...] 01/11/2020 6.2 (H) No results found for: [id number] Patient's Medications START taking these medications No [...] or contact lenses. Final Rx Sphere Cylinder [facility] Add Near [facility] Right +1.00 +1.50 145 20/40 +2.25 20/20 Left +0.75 Sphere 20/25 +2.25 20/20 Expiration Date: 02/03/2021 Discussed PCO OD and recommended YAG. Patient opts for spec rx now with plan to schedule YAG OD in the future. Disposition Patient advised to return to the clinic as scheduled for pertinent surveillance care. Bharathi Elizabeth, ELISABETH [employer] Fab[employer]ator [employer] Assembler Clinical Professor Director of Ambulatory Medicine for Ophthalmology, [place] Clinical and Mail Caller: [employer] [facility] Department of Ophthalmology And Visual Sciences documented in this encounter Plan of Treatment Date Type Specialty Care Team Description 02/10/2020 Office Visit Family Medicine Julian Queen MD [address] [place] [address] [phone] Health Maintenance Due Date Last Done [...] ID Effective Phone Address T e Group [facility] [id number] 2019-Preszenaida candelario [facility] - MEDICARE HMO MANAGED MEDICARE ADVANTAGE documented as of this encounter
--- OUTSIDE RECORDS SUMMARY | 2020-04-13 05:15 | XMS REPORT | Summary of Care ---
:1950 Author Organization [facility] - [facility] Address [address] [place] [address] Care Team Providers Name Role Phone Mabel Queen MD Primary Care Provider Reason for Visit Reason Comments Assessment Encounter Details Date Type Department Care Team Description 01/20/2020 Telephone [facility] Family Medicine Kobi Rainey MD Assessment - [address] [place] [address] [place] [address] [place] [address] [phone] Allergies Active Allergy Reactions Severity Noted Date [...] been in contact with No / Unsure 01/21/2020 11:19 AM CDT someone who was confirmed or 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 documented as of this encounter Last Filed Vital Signs Not on filedocumented in this encounter Miscellaneous Notes Telephone Encounter - Yamile Mcneal LVN - 01/21/2020 11:18 AM CDTPatient notified. Telephone Encounter - Kobi Queen MD - 01/21/2020 10:43 AM CDTThat is fine for the lab and US review but I want her to have her CT before the month is out. Ask her to call Radiology to schedule this if she doesn't hear from them by Friday. elephone Encounter - Yamile Mcneal LVN - 01/21/2020 10:22 AM CDTPatient notified and verbalized understanding. Appointment scheduled next available was 02/10/2020, does she need sooner? elephone Encounter - Yamile Mcneal LVN - 01/21/2020 10:17 AM CDT Kobi Queen MD P Ad[facility] Med Nurse She has a mild back up of urine on the right kidney but the cause is not apparent. I have ordered a CT scan for more information and I will have her f/u with Urology once the results are back. She also has mild fatty liver so I will discuss this further with her at her next appointment (see lab results message, she needs appointment for results f/u). elephone Encounter - Kobi Queen MD - 01/21/2020 10:05 AM CDTI'm sorry. You're right, I thought I had resulted her already. I have sent the results to the pool. Thanks. elephone Encounter - Kobi Queen MD - 01/20/2020 5:36 PM CDTSee results message for instructions for the patient. elephone Encounter - Elyse Sanchez - 01/20/2020 11:49 AM CDTPt stated she is still having right side pain. documented in this encounter Plan of Treatment Date Type Specialty Care Team Description 01/27/2020 Appointment Radiology Julian Queen MD [address] [address] [phone] 02/03/2020 Office Visit Ophthalmology Kota Elizabeth, OD [address] [place] [address] [place] [address] 02/10/2020 Office Visit Family Medicine Julian Queen MD [address] [phone] Health Maintenance Due Date Last Done [...] Effective Phone Address T ype Group Dates SAVANNAH SERGIO/JOANN [id number] 2019-Ruddy [facility] - MEDICARE nt HMO MANAGED MEDICARE ADVANTAGE documented as of this encounter
--- OUTSIDE RECORDS SUMMARY | 2020-04-13 05:15 | XMS REPORT | Summary of Care ---
:1950 Author Organization [facility] Address [address] [place] [address] Care Team Providers Name Role Phone Mabel Queen MD Primary Care Provider Reason for Referral MRI/CAT Scan (Routine) Status Reason Specialty Diagnoses / Referred By Referred To Procedures Contact Contact Closed Diagnostic Diagnoses Chronic right flank pain Personal history of renal cancer Hydronephrosis, right CHRONIC RIGHT FLANK PAIN PERSONAL HISTORY OF RENAL CANCER Kobi Queen Radiology Procedures CT ABDOMEN PELVIS WO CONTRAST CHG CT SCAN,ABDOMENT AND PELVIS,W/O CONTRAST CT ABDOMEN PELVIS WO CONTRAST MD Mabel [address] [place] [address] [place] [address] Reason for Visit MRI/CAT Scan (Routine) Status Reason Specialty Diagnoses / Referred By Referred To Procedures Contact Contact Closed Diagnostic Diagnoses Chronic right flank pain Personal history of renal cancer Hydronephrosis, right CHRONIC RIGHT FLANK PAIN PERSONAL HISTORY OF RENAL CANCER Kobi Queen Radiology Procedures CT ABDOMEN PELVIS WO CONTRAST CHG CT SCAN,ABDOMENT AND PELVIS,W/O CONTRAST CT ABDOMEN PELVIS WO CONTRAST MD Mabel [address] [place] [address] [place] [address] Encounter Details Date Type Department Care Team Description 01/31/[address] [facility] [facility] [place] [facility] MD Tomography [address] [facility] Dr merly PAREDES, [place] [address] [phone] Allergies Active Allergy Reactions Severity Noted Date Comments Iodine Hives, Itching, Rash 01/11/2020 Latex Hives, Rash 01/11/2020 Morphine Anaphylaxis 01/11/2020 documented as of this encounter (statuses as of 02/01/2020) Medications Medication Sig Dispensed Refills Start Date End Date Status amLODIPine 5 mg Take 1 tablet by 30 tablet 5 01/11/2020 Active tabletIndications: mouth daily. Essential hypertension documented as of this encounter (statuses as of 02/01/2020) Active Problems Problem Noted Date Hydronephrosis, right 01/21/2020 Chronic right flank pain 01/21/2020 Chronic pain of right upper extremity 01/17/2020 Overview: x 9 months since fall History of kidney cancer 01/11/2020 Type 2 diabetes mellitus, without long-term current us e of insulin 01/11/2020 Fibromyalgia Essential hypertension documented as of this encounter (statuses as of 02/01/2020) Social History Tobacco Use Types Packs/Day Years [...] Team Description 02/03/2020 Office Visit Ophthalmology Kota Elizabeth, OD [address] [place] [address] [address] [address] 02/10/2020 Office Visit Family Medicine Julian Queen MD [address] [place] [address] [phone] Health Maintenance Due Date Last Done [...] Name Priority Date/Time Associated Diagnosis Comme nts CT ABDOMEN PELVIS Routine 01/31/2020 11:35 AM Chronic right fl ank Results for this WO CONTRAST CDT pain procedure are in Personal history of the resu lts renal cancer section. Hydronephrosis, right documented in this encounter Results CT ABDOMEN PELVIS WO CONTRAST (01/31/2020 11:35 AM CDT) Specimen Impressions Performed At PACS/VR/DOSE 1. Mild right hydronephrosis and hydroureter. Abnorm ally low extension of the bladder in this patient with pelvic floor prolapse. Ureterovesical junction is also abnormally located as well, below the level of the pubic symphysis. Suspect obstruction consequen ce of altered anatomy. 2. Pelvic floor prolapse with signific ant abnormal descent of all compartments (anterior-bladder, middle- vaginal cuff, and posterior-rectum) with most pronounced abnormality in the posterior compartment. 3. Status post left nephrectomy. 4. Nonspecific stranding in the mesenteric fat with associated small lymph nodes in the left mid abdomen. 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 TECHNIQUE: Contrast -no IV contrast was given, no oral contrast was given Examination performed in prone position per renal stone protocol Noncontrast - abdomen and pelvis Reconstructions - coronal and sagittal p lanes COMPARISON: Renal ultrasound, 01/18/2020 FINDINGS: Statements: None. Thoracic: Included images of the lower chest demonstra te no abnormalities. Hepatobiliary: Subcentimeter segment 7 hepatic lesion (2:54), too small to characterize and likely benign. The gallbladder is unr emarkable. No biliary dilation. Pancreas: Pancreatic atrophy, with partial sparing of the pancreatic tail. No focal lesion. Spleen: No abnormality identified in the spleen. Adrenals: Right adrenal gland is unremar kable. Left adrenal gland is not definitely identified. Postsurgical massey ges are present in the area. Genitourinary: Mild right perinephric stranding. Mild r ight hydronephrosis and hydroureter. The bladder is displaced in feriorly in this patient with pelvic floor prolapse. Abnormal inferior extension of the bladder in this patient with pelvic floor prolapse. The dilated ureter also extends abnormally low, below the level of the p ubic symphysis. The left kidney is surgically absent. The uterus is not visualized. The vagina l cuff is also persistent abnormally low. Gastrointestinal: No evidence of bowel o bstruction or perienteric inflammation. Mild colonic diverticulosi s. Abnormal distended of the rectum and mes orectal fat at the pelvic floor, partially imaged. Vascular/Lymphatics: No enlarged lymph nodes by CT siz e criteria. Abdominal aorta is normal in caliber. MSK/Body Wall: No concerning bony lesion identified. D egenerative changes at lower lumbar facets. L2 vertebral body hemangioma. Postsurgical changes present at the anterior abdominal wall f rom prior supraumbilical hernia repair. Peritoneum/Other: No extraluminal air. No extraluminal fluid. Nonspecific stranding in the mesenteric fat in the l eft mid abdomen with associated small lymph nodes. Pattern may be seen w ith mesenteric panniculitis. Procedure Note [facility], Radiant Results Inft User - 2019 1:16 PM CDT EXAM: CT ABDOMEN PELVIS WO CONTRAST HISTORY: 70 year -old woman with h/o lef t renal cancer s/p nephrectomy who has chronic right flank pain and right h ydronephrosis of unclear cause. TECHNIQUE: Contrast -no IV contrast was given, no oral contrast was given Examination performed in prone position per renal stone protocol Noncontrast - abdomen and pelvis Reconstructions - coronal and sagittal p lanes COMPARISON: Renal ultrasound, 01/18/2020 FINDINGS: Statements: None. Thoracic: Included images of the lower c hest demonstrate no abnormalities. Hepatobiliary: Subcentimeter segment 7 h epatic lesion (2:54), too small to characterize and likely benign. The gall bladder is unremarkable. No biliary dilation. Pancreas: Pancreatic atrophy, with parti al sparing of the pancreatic tail. No focal lesion. Spleen: No abnormality identified in the spleen. Adrenals: Right adrenal gland is unremar kable. Left adrenal gland is not definitely identified. Postsurgical massey ges are present in the area. Genitourinary: Mild right perinephric stranding. Mild r ight hydronephrosis and hydroureter. The bladder is displaced in feriorly in this patient with pelvic floor prolapse. Abnormal inferior extension of the bladder in this patient with pelvic floor prolapse. The dilated ureter also extends abnormally low, below the level of the p ubic symphysis. The left kidney is surgically absent. The uterus is not visualized. The vagina l cuff is also persistent abnormally low. Gastrointestinal: No evidence of bowel o bstruction or perienteric inflammation. Mild colonic diverticulosi s. Abnormal distended of the rectum and mes orectal fat at the pelvic floor, partially imaged. Vascular/Lymphatics: No enlarged lymph n odes by CT size criteria. Abdominal aorta is normal in caliber. MSK/Body Wall: No concerning bony lesion identified. Degenerative changes at lower lumbar facets. L2 vertebral bod y hemangioma. Postsurgical changes present at the anterior abdominal wall f rom prior supraumbilical hernia repair. Peritoneum/Other: No extraluminal air. N o extraluminal fluid. Nonspecific stranding in the mesenteric fat in the l eft mid abdomen with associated small lymph nodes. Pattern may be seen w ith mesenteric panniculitis. IMPRESSION 1. Mild right hydronephrosis and hydrou reter. Abnormally low extension of the bladder in this patient with pelvic floor prolapse. Ureterovesical junction is also abnormally located as w ell, below the level of the pubic symphysis. Suspect obstruction consequen ce of altered anatomy. 2. Pelvic floor prolapse with significa nt abnormal descent of all compartments (anterior-bladder, middle- vaginal cuff, and posterior-rectum) with most pronounced abnormality in the posterior compartment. 3. Status post left nephrectomy. 4. Nonspecific stranding in the mesente moncho fat with associated small lymph nodes in the left mid abdomen. 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 panniculitis Performing Organization Address City/State/Zipcode Phone Number PACS/VR/DOSE documented in this encounter Visit Diagnoses Diagnosis Chronic right flank pain Abdominal pain, unspecified site Personal history of renal cancer Personal history of malignant neoplasm o f kidney Hydronephrosis, right Hydronephrosis documented in this encounter Insurance Payer Benefit Plan / Subscriber ID Effective Phone Address T ype Group Dates [facility] [id number] 2019-Ruddy candelario [facility] - MEDICARE [facility]/[employer] MANAGED MEDICARE ADVANTAGE documented as of this encounter
--- OUTSIDE RECORDS SUMMARY | 2020-04-13 05:15 | XMS REPORT | Summary of Care ---
:1950 Author Organization [facility] - [facility] Address [address] [place] [address] Care Team Providers Name Role Phone Mabel Queen MD Primary Care Provider Reason for Visit Reason Comments Notification Encounter Details Date Type Department Care Team Description 01/21/2020 Telephone [facility] Family Medicine Kobi Rainey MD Notification - [address] [place] [address] Dr moreland [facility] [place] [address] [place] [address] [phone] Allergies Active Allergy Reactions Severity Noted Date [...] this encounter Miscellaneous Notes Telephone Encounter - Kobi Queen MD - 01/21/2020 2:20 PM CDTShe can also try Tylenol for the pain. That is okay for her to take. elephone Encounter - Yamile Mcneal LVN - 01/21/2020 2:16 PM CDTReturning patient call she reports continued right side pain and is asking if anything can be calledin or what can be done. I advised her previously of the CT order and recommended that if she cannot tolerate the pain she is in she should be seen by either the urgent care provider or if severe the ER. She verbalized understanding. elephone Encounter - Eylse Sanchez - 01/21/2020 11:33 AM CDTPt is requesting to speak back to nurse. documented in this encounter Plan of Treatment Date Type Specialty Care Team Description 01/27/2020 Appointment Radiology Julian Queen MD [address] [place] [address] [phone] 02/03/2020 Office Visit Ophthalmology Kota Elizabeth, OD [address] [address] 02/10/2020 Office Visit Family Medicine Julian Queen MD [address] [place], [place] [address] [phone] Health Maintenance Due Date Last Done [...] Phone Address T ype Group Dates [employer]JOANN [id number] 2019-Ruddy candelario Adv HEALTHCARE - MEDICARE nt O MANAGED MEDICARE ADVANTAGE documented as of this encounter
--- OUTSIDE RECORDS SUMMARY | 2020-04-13 05:15 | XMS REPORT | Summary of Care ---
:1950 Author Organization [facility] - [facility] Address [address] [place] [address] Care Team Providers Name Role Phone Mabel Queen MD Primary Care Provider Reason for Referral (LINDA) Status Reason Specialty Diagnoses / Referred By Referred To Procedures Contact Contact New Request Obstetrics & Diagnoses Hydronephrosis, right Hydroureter, right Pelvic organ prolapse quantification stage 1 cystocele History of kidney cancer Bernice, Gynecology Procedures CONSULT/REFERRAL UROGYN UroGyyury Monroe MD [address] [place] [address] [place] [address] Reason for Visit Reason Comments REFERRAL Encounter Details Date Type Department Care Team Description 02/04/2020 Case Management [facility] Pediatric Julian Queen, DEMARCO and Adult Primary Care- MD Witt [address] [place] [address] [place] [address] [address] [address] [place] [address] [phone] Allergies Active Allergy Reactions Severity Noted Date Comments Iodine Hives, Itching, Rash 01/11/2020 Latex Hives, Rash 01/11/2020 Morphine Anaphylaxis 01/11/2020 documented as of this encounter (statuses as of 02/04/2020) Medications Medication Sig Dispensed Refills Start Date End Date Status amLODIPine 5 mg Take 1 tablet by 30 tablet 5 01/11/2020 Active tabletIndications: mouth daily. Essential hypertension documented as of this encounter (statuses as of 02/04/2020) Active Problems Problem Noted Date Hydroureter, right 02/04/2020 Pelvic organ prolapse quantification stage 1 cystocele 02/04/2020 Hydronephrosis, right 01/21/2020 Chronic right flank pain 01/21/2020 Chronic pain of right upper extremity 01/17/2020 Overview: x 9 months since fall History of kidney cancer 01/11/2020 Type 2 diabetes mellitus, without long-term current us e of insulin 01/11/2020 Fibromyalgia Essential hypertension documented as of this encounter (statuses as of 02/04/2020) Social History Tobacco Use Types Packs/Day Years [...] Office Visit Family Medicine Julian Queen MD [address] [place] [address] [phone] Health Maintenance Due Date Last Done Comments FOOT EXAM 01/14/1970 DTaP,Tdap,and Td Vaccines (1 - Tdap) 01/14/1971 Breast Cancer Screening (MAMMOGRAM) 1992 COLON CANCER SCREENING ANNUAL FIT/FOBT 01/14/2002 COLON CANCER SCREENING FIT DNA EVERY 3 01/14/2002 YEARS COLON CANCER SCREENING SIGMOIDOSCOPY EVERY 01/14/2002 5 YEARS COLONOSCOPY 01/14/2002 Colorectal Cancer Screening 01/14/2002 Zoster Recombinant Vaccine (SHINGRIX) (1 01/14/2002 of 2) Medicare Wellness Visit 01/14/2017 Osteoporosis Screening 01/14/2017 PNEUMOCOCCAL VACCINES 65+ (1 of 1 - 01/14/2017 PPSV23) INFLUENZA VACCINE (#1) 2020 HgA1C 07/13/2020 01/11/2020 CREATININE (SERUM) 01/10/2021 01/11/2020 Depression Screening 01/10/2021 01/11/2020 LDL-C 01/10/2021 01/11/2020 URINE MICROALBUMIN 01/10/2021 01/11/2020 EYE EXAM 02/02/2021 02/03/2020, 02/03/2020 HEPATITIS C (HCV) SCREEN Completed 01/11/2020 documented as of this encounter Results Not on filedocumented in this encounter Visit Diagnoses Diagnosis Hydronephrosis, right - Primary Hydronephrosis Hydroureter, right Hydroureter Pelvic organ prolapse quantification sta ge 1 cystocele History of kidney cancer Personal history of malignant neoplasm o f kidney documented in this encounter Insurance Payer Benefit Plan / Subscriber ID Effective Phone Address T ype Group Dates [facility]/JOANN [id number] 2019-Ruddy candelario Adv HEALTHCARE - MEDICARE [facility] MANAGED MEDICARE ADVANTAGE documented as of this encounter
--- OUTSIDE RECORDS SUMMARY | 2020-04-13 05:15 | XMS REPORT | Summary of Care ---
:1950 Author Organization [facility] Address [address] [place] [id number] Care Team Providers Name Role Phone Mabel Queen MD Primary Care Provider Reason for Referral Radiology Services (Routine) Status Reason Specialty Diagnoses / Procedures Referred By Sriram willis To Contact Contact Closed Diagnostic Diagnoses History of kidney cancer Right flank pain Bernice, Radiology Procedures US RETROPERITONEAL COMPLETE Kobi Monroe MD [address] [place] [address] [place] [address] Reason for Visit Radiology Services (Routine) Status Reason Specialty Diagnoses / Procedures Referred By Sriram willis To Contact Contact Closed Diagnostic Diagnoses History of kidney cancer Right flank pain Bernice, Radiology Procedures US RETROPERITONEAL COMPLETE Kobi Monroe MD [address] [place] [address] [facility] [place] [address] Encounter Details Date Type Department Care Team Description 01/18/2020 Hospital Encounter [facility] Bran Camilo Arrived [facility] [address] [place] [address] Dr moreland [address] [place] [address] [place] [address] [place] [address] [phone] Allergies Active Allergy Reactions Severity Noted [...] encounter Procedures Procedure Name Priority Date/Time Associated Comments Diagnosis US RETROPERITONEAL Routine 01/18/2020 8:18 History of kidney Results for this COMPLETE AM CDT cancer procedure are in Right flank pain the results section. documented in this encounter Results US RETROPERITONEAL COMPLETE (01/18/2020 8:18 AM CDT) Specimen Narrative Performed At HISTORY: Right flank pain, history of le ft nephrectomy for cancer. PACS/VR/DOSE TECHNIQUE: Right kidney was evaluated in multiple plan es with the patient in different positions. FINDINGS: The kidney has been removed. Right kidney showed compensatory hypertrophy, measurin g 13.9 x 5.0 x 6.3 cm with cortical thickness of 2 13 mm. Tadeo leila, there is mild right-sided hydronephrosis. No cause for obstruction is apparent i n this examination. Incidental note made of mild hepatic steatosis and bor derline splenomegaly Quick look at the urinary bladder showed no gross pathology. CONCLUSIONS: Mild right-sided hydronephrosis without a ny apparent cause in this study. For complete evaluation, CT scan of abdomen and pelvis suggested using CT urogram protocol. Procedure Note [facility], Radiant Results Inft User - 2019 8:24 AM CDT HISTORY: Right flank pain, history of left nephrectomy for cancer. TECHNIQUE: Right kidney was evaluated in multiple planes with the patient in different positions. FINDINGS: The kidney has been removed. Right kidney showed compensatory hypertr ophy, measuring 13.9 x 5.0 x 6.3 cm with cortical thickness of 2 13 mm. Tdaeo leila, there is mild right-sided hydronephrosis. No cause for obstruction is apparent in this examination. Incidental note made of mild hepatic mumtaz atosis and borderline splenomegaly Quick look at the urinary bladder showed no gross pathology. CONCLUSIONS: Mild right-sided hydronephr osis without any apparent cause in this study. For complete evaluation, CT scan of abdomen and pelvis suggested using CT urogram protocol. Performing Organization Address City/State/Zipcode Phone Number PACS/VR/DOSE documented in this encounter Visit Diagnoses Diagnosis History of kidney cancer Personal history of malignant neoplasm o f kidney Right flank pain Abdominal pain, unspecified site documented in this encounter Insurance Payer Benefit Plan / Subscriber ID Effective Phone Address T ype Group Dates [facility] [id number] 2019-Ruddy candelario Adv HEALTHCARE - MEDICARE nt HMO MANAGED MEDICARE ADVANTAGE documented as of this encounter
--- OUTSIDE RECORDS SUMMARY | 2020-04-13 05:16 | XMS REPORT | Summary of Care ---
:1950 Author Organization [facility] - [facility] Address [address] [place] [id number] Care Team Providers Name Role Phone Mabel Wellington MD Primary Care Provider Reason for Referral (Routine) Status Reason Specialty Diagnoses / Referred By Referred To Procedures Contact Contact New Request Public Health & Diagnoses Referral of patient Bernice, General Preventive Procedures CONSULT/REFERRAL MEDICARE ANNUAL WELLNESS VISIT Kobi Monroe MD Medicine [address] [place] [address] [place] [address] (Routine) Status Reason Specialty Diagnoses / Referred By Referred To Procedures Contact Contact New Request Patient Gastroenterology Diagnoses Chronic constipation Screening for colorectal cancer Panniculitis Bernice, Unknown, Requested Procedures CONSULT/REFERRAL GENERAL SURGERY Kobi Monroe, Attending Specific Provider [address] [place] [address] [place] [address] Radiology Services (Routine) Status Reason Specialty Diagnoses / Referred By Referred To Procedures Contact Contact New Request Diagnostic Diagnoses Abnormal LFTs Bernice, Radiology Procedures US LIVER Kobi Monroe MD [address] [place] [address] [place] [id number] Reason for Visit Reason Comments Abnormal Lab Referral/consult Constipation Anxiety Encounter Details Date Type Department Care Team Description 02/10/2020 Office Visit [facility] Family Kobi Wellington hypertension (Primary Dx); Medicine - Eduar Monroe MD Low TSH level; [address] [place] [address] Chronic constipation; Drive [place], [place] Screening for colorectal can cer; [place] [address] Leukocytosis, unspecified type; [id number] Abnormal LFTs; [phone] Panniculi tis; Abnormal thyroi d function test; Abnormal result s of thyroid function studies ; Abnormal findin gs on diagnostic imaging of liver and biliary tract ; Abnormal liver enzymes; Encounter for s creening for other viral diseases ; Intermittent ab dominal pain; Anxiety; Referral of pat ient Allergies Active Allergy Reactions Severity Noted Date Comments Iodine Hives, Itching, Rash 01/11/2020 Latex Hives, Rash 01/11/2020 Morphine Anaphylaxis 01/11/2020 documented as of this encounter (statuses as of 02/11/2020) Medications Medication Sig Dispensed Refills Start Date End Date Status amLODIPine 10 mg Take 1 tablet 30 tablet 5 02/10/2020 Active tabletIndications by mouth : Essential daily. DOSE hypertension INCREASE. dicyclomine 10 mg Take 1 capsule 30 capsule 0 02/10/2020 Active capsuleIndication by mouth 4 s: Intermittent (four) times abdominal pain daily as needed for Abdominal pain. citalopram 10 mg Take 1 tablet 30 tablet 2 02/10/2020 Active tabletIndications by mouth : Anxiety daily. amLODIPine 5 mg Take 1 tablet 30 tablet 5 01/11/2020 Discontinued tabletIndications by mouth 0 (R eorder) : Essential daily. hypertension linaCLOtide Take 1 capsule 30 capsule 5 02/10/2020 D iscontinued (LINZESS) 145 mcg by mouth 0 (C ost of capsuleIndication daily. me dication) s: Chronic constipation documented as of this encounter (statuses as of 02/11/2020) Active Problems Problem Noted Date Anxiety 02/11/2020 Abnormal liver enzymes 02/11/2020 Chronic constipation 02/11/2020 Panniculitis 02/11/2020 Hydroureter, right 02/04/2020 Pelvic organ prolapse quantification stage 1 cystocele 02/04/2020 Hydronephrosis, right 01/21/2020 Chronic right flank pain 01/21/2020 Chronic pain of right upper extremity 01/17/2020 Overview: x 9 months since fall History of kidney cancer 01/11/2020 Type 2 diabetes mellitus, without long-term current us e of insulin 01/11/2020 Fibromyalgia Essential hypertension documented as of this encounter (statuses as of 02/11/2020) Social History Tobacco Use Types Packs/Day Years [...] been in contact with No / Unsure 02/10/2020 1:58 PM CDT someone who was confirmed or 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 documented as of this encounter Last Filed Vital Signs Vital Sign Reading Time Taken Comments Blood Pressure 137/80 02/10/2020 1:58 PM CDT Pulse 92 02/10/2020 1:58 PM CDT Temperature 37.1 C (98.7 F) 02/10/2020 1:58 PM CDT Respiratory Rate 14 02/10/2020 1:58 PM CDT Oxygen Saturation 99% 02/10/2020 1:58 PM CDT Inhaled Oxygen Concentration - - Weight 101.2 kg (223 lb) 02/10/2020 1:58 PM CDT Height 179.1 cm (5' 10.5") 02/10/2020 1:58 PM CDT Body Mass Index 31.54 02/10/2020 1:58 PM CDT documented in this encounter Patient Instructions Patient InstructionsKobi Wellington MD - 02/10/2020 2:00 PM CDT Patient Education Aspartate Transaminase Does this test have other names? AST, serum glutamic oxaloacetic transaminase test, SGOT What is this test? This blood test is used to diagnose liver damage. Aspartate transaminase (AST) is an enzyme that is released when your liver or muscles are damaged. Although AST is found mainly in your liver and heart, AST can also be found in small amounts in other muscles. This test can also be used to monitor liver disease. Why do I need this test? You may need this test if your healthcare provider suspects that your liver is damaged. You might have this test if you have these symptoms related to liver disease: Dark-colored urine Light-colored stool Yellowing of theskin or eyes (jaundice) Nausea and vomiting Lack of appetite or weight loss Weakness or tiredness (fatigue) Itching (pruritus) Swelling in the belly, pain in the belly, or both You may also have this test if you have a family history of liver illness or drink an abnormally largeamount of alcohol.You may also have this test if you have a condition such as diabetes that maycause liver problems or if you take medicines that can cause liver damage. What other tests might I have along with this test? Your healthcare provider may also order the alanine aminotransferase (ALT) test. It's commonly used along with the AST test to look at your liver's function. ALT is an enzyme found in the liver. High levels of ALT can mean hepatitis. What do my test results mean? Test results may vary depending on your age, gender, health history, the method used for the test, and other things. Your test results may not mean you have a problem. Ask your healthcare provider whatyour test results mean for you. Results are given in units per liter (units/L). Normal ranges for AST are: Males:10 to 40 units/L Females:9 to 32 units/L Women tend to have slightly lower levels than men. Older adults tend to have slightly higher levels than the normal range for adults. If you have abnormally high levels of AST, you might have: Liver disease Muscle injury Heart attack Pancreatitis Extremely high levels of AST may mean you have a disease like viral hepatitis, liver injury from medicines or toxins, or "shock liver." Shock liver is widespread liver damage caused by lack of oxygen or not enough blood supply. How is this test done? The test is done with a blood sample. A needle is used to draw blood from a vein in your arm or hand. Does this test pose any risks? Having a blood test with a needle carries some risks. These include bleeding, infection, bruising, and feeling lightheaded. When the needle pricks your arm or hand, you may feel a slight sting or pain.Afterward, the site may be sore. What might affect my test results? Test results may be false-positive if you have diabetic ketoacidosis. They may also be false-positive if you take para-aminosalicylic acid or erythromycin estolate. These are antibiotics that treat bacterial infections. How do I get ready for this test? You don't need to prepare for this test. Be sure your healthcare provider knows about all medicines, herbs, vitamins, and supplements you are taking. This includes medicines that don't need a prescription and any illicit drugs you may use. [employer] last reviewed this educational content on 05/02/201719994616-2482 [employer] [address] [place] [address], [place] [address]. All rights reserved. This information is not intended as a substitute for professional medical care. Always follow your healthcare professional's instructions. Patient Education ALT Does this test have other names? Alanine aminotransferase, serum glutamic-pyruvic transaminase, SGPT What is this test? This test measures the amount of the enzyme alanine aminotransferase (ALT) in your blood. ALT, formerly called SGPT, is mostly found in your liver cells. When liver cells are injured, they release this enzyme into your blood. High levels are a sign of liver damage. This test is part of a group of tests commonly referred to as "liver function tests." Results of these tests give healthcare providers an overall picture of how well your liver is working. Why do I need this test? You may have this test to see if you have liver damage or a liver disease, such as hepatitis. Symptoms of liver diseases include: Extreme tiredness or weakness Loss of appetite Yellowing of the eyes and skin (jaundice) Dark urine or light-colored stool Belly (abdominal) pain Nausea and vomiting Diarrhea Headache You may also have this test to look for cirrhosis, which causes damage and scarring to the liver. Causes of cirrhosis include long-term hepatitis infection, excessive alcohol use, obesity, and exposureto certain medicines or toxins. Symptoms of cirrhosis include: Abdominal swelling from fluid buildup Visible blood vessels in the skin Itchy skin Swelling of the legs, feet or ankles Nausea, loss of appetite Weight loss Feeling tired (fatigue) What other tests might I have along with this test? Your healthcare provider may also order other tests of liver health, including: Albumin Bilirubin Alkaline phosphatase (ALP) Aspartate aminotransferase (AST) Prothrombin time (PT) Your healthcare provider may also order other tests that measure: Your liver's ability to process substances from your blood Levels of substances your liver produces Liver inflammation What do my test results mean? Many things may affect your lab test results. These include the method each lab uses to do the test.Even if your test results are different from the normal value, you may not have a problem. To learn what the results mean for you, talk with your healthcare provider. ALT levels are normally less than 40 international units per liter (IU/L). Levels above 1,000 IU/L may be a sign of: Acute viral hepatitis Lack of blood flow to the liver Injuries from drugs or toxins The ratio of AST to ALT may also provide helpful information to your healthcare provider. AST levelsare normally lower than ALT levels. AST is often higher than ALT in cases such as: Hepatitis from alcohol use Cirrhosis in people with long-term viral hepatitis A number of other medical conditions besides liver disease can also cause liver enzymes to rise. These include: Muscle diseases Celiac disease Thyroid problems Gallstones Adrenal gland problems How is this test done? The test requires a blood sample, which is drawn through a needle from a vein in your arm. Does this test pose any risks? Taking a blood sample with a needle carries risks that include bleeding, infection, bruising, or feeling dizzy. When the needle pricks your arm, you may feel a slight stinging sensation or pain. Afterward, the site may be slightly sore. What might affect my test results? Many medicines can affect your test results, as can drinking alcohol. How do I get ready for this test? Your healthcare provider may ask you to not to eat or drink and avoid medicines before your blood tests. Be sure your healthcare providers knows about all medicines, herbs, vitamins, and supplements you are taking. This includes medicines that don't need a prescription and any illegal drugs you may use. [employer] last reviewed this educational content on 08/31/201819997078-0631 [employer] [address] [place] [address], [place] [address]. All rights reserved. This information is not intended as a substitute for professional medical care. Always follow your healthcare professional's instructions. documented in this encounter Progress Notes Kobi Wellington MD - 02/10/2020 2:00 PM CDT CC: Chief Complaint Patient presents with Abnormal Lab Referral/consult Constipation Anxiety HPI Samantha Green is a 70 year old female who presents for discussion of abnormal labs, f/u of HTN, and she also c/o anxiety. Additionally she continues to have right sided abdominal pain and shec/o worsening constipation lately. She says OTC medications haven't helped so she requests a prescription medication to help her have a bowel movement. A recent CT scan diagnosed right hydronephrosisand hydroureter related to severe pelvic organ prolapse. She has not scheduled with UroGYN yet due to a desire to see a local specialist for this issue. The CT also showed panniculitis and she now states she also prefers the General surgeon to be a local specialist. She says she has never had a colo noscopy but she has had an EGD in the distant past. HTN follow-up Antihypertensive medication(s): Amlodipine. Medication compliance: Good. Denies adverse medication side effects. Dietary compliance: Improving. Exercise frequency: None. Blood pressure readings: 140s-180s systolic, 70s-90 diastolic. Associated symptoms: Anxiety (see below). Denies chest pain, SOB, edema, orthopnea, PND, palpitations, dizziness, syncope, headaches, visual changes, or a new neuro deficit. Cardiovascular screening (ex. EKG, stress test) in the past 3 years?: No. Anxiety Presents for initial visit. Onset was 1 to 5 years ago. The problem has been gradually worsening. Symptoms include decreased concentration, excessive worry, nervous/anxious behavior, panic and restlessness. Patient reports no chest pain, compulsions, confusion, depressed mood, dizziness, dry mouth, hyperventilation, insomnia, irritability, malaise, muscle tension, nausea, obsessions, palpitations, shortness of breath or suicidal ideas. Symptoms occur constantly. The severity of symptoms is interfering with daily activities and causing significant distress. The symptoms are aggravated by family issues (caring for her ill ). The quality of sleep is fair. Nighttime awakenings: occasional. There are no known risk factors. Her past medical history is significant for anxiety/panic attacks. There is no history of bipolar disorder or suicide attempts. Past treatments include lifestyle changes. The treatment provided no relief. Allergies Allergen Reactions Iodine Hives, Itching and [...] file Gets together: Not on file Attends buddhism service: Not on file Active member of [...] Not on file Review of Systems Constitutional: Negative. Negative for irritability. HENT: Negative. Eyes: Negative. Respiratory: Negative. Negative for shortness of breath. Cardiovascular: Negative. Negative for chest pain and palpitations. Gastrointestinal: Positive for abdominal pain. Negative for nausea. Genitourinary: Positive for flank pain. Musculoskeletal: Positive for arthralgias. Skin: Negative. Neurological: Negative. Negative for dizziness. Psychiatric/Behavioral: Positive for decreased concentration. Negative for confusion and suicidal ideas. The patient is nervous/anxious. The patient does not have insomnia. Endocrine: Endocrine negative Vital signs BP 137/80 | Pulse 92 | Temp 37.1 C (98.7 F) (Tympanic) | Resp 14 | Ht 5' 10.5" (1.791 m) | Wt 223 lb (101.2 kg) | SpO2 99% | BMI 31.54 kg/m Physical Exam Vitals signs and nursing note reviewed. Neurological: Mental Status: She is alert. Psychiatric: Attention and Perception: Perception normal. She is inattentive. She does not perceive auditory or visual hallucinations. Mood and Affect: Mood is anxious. Speech: Speech is rapid and pressured. Behavior: Behavior normal. Thought Content: Thought content normal. Thought content is not paranoid or delusional. Thought content does not include homicidal or suicidal ideation. Cognition and Memory: Cognition and memory normal. Judgment: Judgment normal. 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 Visit on 01/11/2020 Component Date Value NA 01/11/2020 137 K 01/11/2020 4.6 CL 01/11/2020 104 CO2 TOTAL 01/11/2020 23 AGAP 01/11/2020 10 BUN 01/11/2020 19 GLUCOSE 01/11/2020 114* CREATININE 01/11/2020 0.83 TOTAL BILI 01/11/2020 0.7 CALCIUM 01/11/2020 10.1 T PROTEIN 01/11/2020 7.6 ALBUMIN 01/11/2020 4.4 ALK PHOS 01/11/2020 102 ALTv 01/11/2020 62* AST(SGOT) 01/11/2020 56* eGFR Calculation (Non-Af* 01/11/2020 68.6 eGFR Calculation (Reica* 01/11/2020 83.1 WBC 01/11/2020 11.43* RBC 01/11/2020 4.63 HGB 01/11/2020 13.7 HCT 01/11/2020 40.8 MCV 01/11/2020 88.1 MCH 01/11/2020 29.6 MCHC 01/11/2020 33.6 RDW-SD 01/11/2020 40.4 RDW-CV 01/11/2020 12.6 PLT 01/11/2020 299 MPV 01/11/2020 10.2 NRBC/100 WBC 01/11/2020 0.0 NRBC x10^3 01/11/2020 <0.01 GRAN MAT (NEUT) % 01/11/2020 69.5 IMM GRAN % 01/11/2020 0.90 LYMPH % 01/11/2020 23.0 MONO % 01/11/2020 4.5 EOS % 01/11/2020 1.4 BASO % 01/11/2020 0.7 GRAN MAT x10^3(ANC) 01/11/2020 7.94* IMM GRAN x10^3 01/11/2020 0.10* LYMPH x10^3 01/11/2020 2.63 MONO x10^3 01/11/2020 0.52 EOS x10^3 01/11/2020 0.16 BASO x10^3 01/11/2020 0.08* HGB A1C 01/11/2020 6.2* HCV Ab 01/11/2020 Negative HCV Semi-Quantitative 01/11/2020 0.01 CHOL 01/11/2020 182 HDL 01/11/2020 39* HDLC RATIO 01/11/2020 4.7* TRIG 01/11/2020 245* LDL CHOL 01/11/2020 94 VLDL 01/11/2020 49 TSH 01/11/2020 0.17* APPEARANCE 01/11/2020 Clear COLOR 01/11/2020 Yellow PH 01/11/2020 5.0 SP GRAVITY 01/11/2020 1.019 GLU U QUAL 01/11/2020 Normal BLOOD 01/11/2020 Negative KETONES 01/11/2020 Negative PROTEIN 01/11/2020 Negative UROBILIN 01/11/2020 Normal BILIRUBIN 01/11/2020 Negative NITRITE 01/11/2020 Negative LEUK KAHLIL 01/11/2020 Negative RBC/HPF 01/11/2020 2 WBC/HPF 01/11/2020 1 BACTERIA 01/11/2020 Few* MUCOUS 01/11/2020 Slight* SQ EPITH 01/11/2020 5 CREAT U 01/11/2020 144.0 MICROALB U 01/11/2020 12 MICROAL/CR 01/11/[address] Abdomen Pelvis Wo Contrast Result Date: 01/31/2020 1. Mild right hydronephrosis and hydroureter. Abnormally low extension of the bladder in this patient with pelvic floor prolapse. Ureterovesical junction is also abnormally located as well, below the level of the pubic symphysis. Suspect obstruction consequence of altered anatomy. 2. Pelvic floor prolapse with significant abnormal descent of all compartments (anterior-bladder, middle- vaginal cuff,and posterior-rectum) with most pronounced abnormality in the posterior compartment. 3. Status postleft nephrectomy. 4. Nonspecific stranding in the mesenteric fat with associated small lymph nodes in the left mid abdomen. 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 Secondary causes of HTN have been considered. The patient's blood pressure goal is <130/<80 and the blood pressure is uncontrolled. Given the blood pressure has been repeatedly > 130/80, adjustment of her antihypertensive pharmacotherapy is warranted. Various antihypertensive medications were reviewed with the patient and the decision was made to increase her amlodipine as noted below. I recommended a low sodium diet/DASH diet along with exercise as part of a heart healthy lifestyle. The patient was instructed to self monitor her blood pressure once-twice daily varying the times when it is checked and to bring the record of readings to each office visit. The patient should follow-up sooner if the blood pressure is trending >/=130/80. An EKG should be done q1-3 years for cardiac surveillance. If not already followed byCardiology, the patient should see a Clinic Licensed Practical Nurse for consultation if there is a family history of heart disease in a 1st degree relative, if any cardiovascular symptomatology develops, and for HTN that is resistant to treatment. I recommended immediate ER evaluation for acute symptoms such as chest pain, SOB, syncope, etc. The patient was warned about the potential consequences of uncontrolled HTNincluding heart disease, renal failure, stroke, etc. - amLODIPine 10 mg tablet; Take 1 tablet by mouth daily. DOSE INCREASE. - EKG-12 LEAD ROUTINE; Future Low TSH level, Abnormal thyroid function test The patient seems clinically hyperthyroid in some ways and hypothyroid in some ways. The patient denies biotin use which can affect the TSH assay. Follow-up labs as noted including anti-thyroid antibodies. I will decide on Endocrinology referral based on the results. - THYROID STIMULATING HORMONE; Standing - FREE T3; Standing - FREE T4; Standing - THYROGLOBULIN AB; Standing - THYROID PEROXIDASE (TPO) AB; Standing - TSH RECEPTOR ANTIBODY (TRAB); Standing Chronic constipation, Screening for colorectal cancer, Panniculitis, Intermittent abdominal pain We discussed possible causes for her constipation and the possibility of idiopathic constipation. Ireviewed the patient's treatment options for constipation and we decided upon a trial of pharmacotherapy as noted below. A high fiber diet, increased water intake, and use of a daily probiotic were also recommended. Thyroid function testing is being done as noted above but her labs didn't indicate hypothyroidism. The patient is not UTD with colonoscopy so a referral to General surgery has been entered to get this done along with evaluation of her panniculitis. She can use some dicyclomine PRN abdominal pain the meanwhile. Strong ER precautions were given for severe pain, pain w/ fever, intractable vomiting, rectal bleeding, or hematemesis. - linaCLOtide (LINZESS) 145 mcg capsule; Take 1 capsule by mouth daily. - dicyclomine 10 mg capsule; Take 1 capsule by mouth 4 (four) times daily as needed for Abdominal pain. - CONSULT/REFERRAL GENERAL SURGERY (out of network provider Dr. Fox in [place] per patient preference) Pelvic organ prolapse, Right hydronephrosis, Right hydroureter Management per [facility] TE[facility] as already referred (out of network provider Dr. Martinez in [place] perpatient preference). Leukocytosis, unspecified type We discussed the general Ddx of leukocytosis. She denies symptoms of infection. I will reassess her CBC today and if the leukocytosis persists without a known cause I will refer the patient to Hematology for further evaluation. Her panniculitis may be playing a role (???). - CBC WITH DIFF; Standing Abnormal LFTs, Abnormal findings on diagnostic imaging of liver and biliary tract I reviewed with the patient the Ddx of abnormal liver function tests and the CT liver findings (possible small liver lesion) including fatty liver, EtOH use, medications, gallbladder/biliary disease, viral infections, autoimmune conditions, various genetic conditions such as hemochromatosis and alpha 1 antitrypsin deficiency, and other causes. The patient was counseled to avoid/limit hepatotoxic agents including EtOH. Further work-up was ordered as noted including more advanced lab work and US imaging of the liver given it is more sensitive than CT for detecting fatty liver changes. I will decide on the need for specialist referral based on the results of the diagnostic testing. - US LIVER; Future - ALPHA 1 ANTITRYPSIN; Standing - ALPHA FETOPROTEIN; Standing - ANTI-NUCLEAR ANTIBODY SCREEN; Standing - CERULOPLASMIN; Standing - FERRITIN SERUM; Standing - GAMMA GLUTAMYLTRANSFERASE; Standing - HAV ANTIBODY (IGG AND IGM) ; Standing - HEPATITIS B SURFACE ANTIBODY; Standing - HEPATITIS B SURFACE ANTIGEN; Standing - HIV 1/2 AG-AB WITH REFLEX; Standing - MITOCHONDRIAL M2 AB, IGG; Standing - SMOOTH MUSCLE AB,IGG W/REFLEX; Standing Anxiety We discussed the neurochemical basis of anxiety and how environmental factors such as stress can play a role in disease presentation and progression. We discussed her medication treatment options and decided upon a trial of a low dose SSRI. The potential side effects of this drug class/medication were reviewed and the patient voiced understanding. The patient declines referral for counseling or Psychiatry care at this time. We discussed healthy ways of coping with anxiety and stress. Thyroid function testing is due (see labs above). Close follow-up has been recommended but the patient understands she can follow-up even sooner if her anxiety symptoms don't improve or if other mental health issues develop. - citalopram 10 mg tablet; Take 1 tablet by mouth daily. Referral of patient She can schedule her Medicare AWV at her convenience so we can help close the multiple maintenance gaps she has. - CONSULT/REFERRAL MEDICARE ANNUAL WELLNESS VISIT Plan of care, desired health behaviors, goals, Ddx of abnormal LFTs and leukocytosis, and any prescribed medications were discussed with the patient. This visit involved counseling and coordination ofcare that comprised more than 50% of the visit time. I spent 35 minute(s) total time with the patient. Education resources and self-management tools were provided and reviewed with the AVS. Patient/guardian/family verbalized understanding and agrees to the plan of care. Barriers to care: None. Ability to manage care: Good. Advanced care planning (living will) information was not given/offeredto the patient to review for discussion at a future visit. If applicable, the [facility] database was accessed to review any controlled substance prescription claims data. If the patient is taking prescribed medications, the [employer] prescription claims data in [employer] was reviewed to assess patientcompliance with the medication treatment plan. COVID-19 precautions given including frequent handwashing, social distancing, cleaning and disinfecting, indications for testing, etc. Follow-up: Return in about 3 months (around 05/11/2020) for anxiety, hypertension, and diabetes follow-up. Follow-up sooner if any problems or concerns. Scribe Venita Mccracken am scribing for, and in the presence of, Kobi Wellington MD who performed the services described here-in. Venita Dixon, February 10, 2020, 1:14 PM Physician Attestation Vik, Kobi Wellington MD, personally performed the services described in this documentation , as scribed by, Venita Dixon in my presence and it is both accurate and complete. Kobi Wellington MD February 10, 2020, 1:14 PM documented in this encounter Miscellaneous Notes Addendum Note - Kobi Wellington MD - 02/10/2020 2:00 PM CDT Addended by: KOBI WELLINGTON on: 02/11/2020 01:24 AM Modules accepted: Orders documented in this encounter Plan of Treatment Date Type Specialty Care Team Description 02/17/2020 Appointment Radiology Julian Wellington MD [address] [place] [address] [phone] 05/11/2020 Office Visit Family Medicine Julian Wellington MD [address] [place] [address] [phone] Name Type Priority Associated Diagnoses Date/Ti me THYROGLOBULIN AB LAB Routine Abnormal TSH 02/10/2020 2:45 PM Abnormal thyroid CDT function test THYROID PEROXIDASE (TPO) LAB Routine Abnorma l TSH 02/10/2020 2:45 PM AB Abnormal thyroid CDT function test TSH RECEPTOR ANTIBODY LAB Routine Abnormal T SH 02/10/2020 2:45 PM (TRAB) Abnormal thyroid CDT function test ALPHA 1 ANTITRYPSIN LAB Routine Abnormal LFT s 02/10/2020 2:45 PM Abnormal liver enzymes CDT ANTI-NUCLEAR ANTIBODY LAB Routine Abnormal L FTs 02/10/2020 2:45 PM SCREEN Abnormal liver enzymes CDT CERULOPLASMIN LAB Routine Abnormal LFTs 02/10/2020 2:45 PM Abnormal liver enzymes CDT MITOCHONDRIAL M2 AB, IGG LAB Routine Abnorma l LFTs 02/10/2020 2:45 PM Abnormal liver enzymes CDT SMOOTH MUSCLE AB,IGG LAB Routine Abnormal LF Ts 02/10/2020 2:45 PM W/REFLEX Abnormal liver enzymes CDT Name Type Priority Associated Diagnoses Order S chedule THYROGLOBULIN AB LAB Routine Low TSH level 1 Occurrences Abnormal thyroid starting function test until 04/10/20 20 THYROID PEROXIDASE LAB Routine Low TSH level 1 Occurrences (TPO) AB Abnormal thyroid starting function test until 04/10/20 20 TSH RECEPTOR ANTIBODY LAB Routine Low TSH le monique 1 Occurrences (TRAB) Abnormal thyroid starting function test until 04/10/20 20 US LIVER IMAGING Routine Abnormal LFTs Expected: 02/10/2020, Expires: 2020 ALPHA 1 ANTITRYPSIN LAB Routine Abnormal LFT s 1 Occurrences Abnormal liver starting 01/31 enzymes until 0 ANTI-NUCLEAR ANTIBODY LAB Routine Abnormal L FTs 1 Occurrences SCREEN Abnormal liver starting 01/31 enzymes until 0 CERULOPLASMIN LAB Routine Abnormal LFTs 1 Occurrences Abnormal liver starting 01/31 enzymes until 0 MITOCHONDRIAL M2 AB, LAB Routine Abnormal LF Ts 1 Occurrences IGG Abnormal liver starting 01/31 enzymes until 0 SMOOTH MUSCLE AB,IGG LAB Routine Abnormal LF Ts 1 Occurrences W/REFLEX Abnormal liver starting 01/31 enzymes until 0 EKG-12 LEAD ROUTINE HEART STATION Routine Essential 1 Occur rences hypertension starting 2019 until 1 Health Maintenance Due Date Last Done Comments [...] 01/11/2020 documented as of this encounter Results HIV 1/2 AG-AB WITH REFLEX (02/10/2020 2:45 PM CDT) Pathologist Sig nature HIV 1/2 Ag-Ab with Negative Negative [facility] HIV Semi-quantitative 0.14 [facility] Specimen Blood Narrative Performed At Non-reactive for HIV-1 antigen and HIV-1/HIV-2 [facility] antibodies. No laboratory evidence of HIV infection. Repeat in 2-4 weeks if acute HIV infection is suspected. Performing Organization Address City/State/Zipcode Phone Number [facility] CLIA: [id number] [place] [address] [facility] [address] HEPATITIS B SURFACE ANTIGEN (02/10/2020 2:45 PM CDT) Pathologist Sig nature HBsAg Negative Negative [facility] HBsAg 0.12 [facility] Semi-Quantitative SERVICES Specimen Blood Performing Organization Address City/State/[facility] Phone Number [facility] CLIA: [id number] [place] [address] [place] [address] HEPATITIS B SURFACE ANTIBODY (02/10/2020 2:45 PM CDT) Pathologist Sig nature HBsAB Negative [facility] HBsAb 0.00 mIU/mL [facility] Semi-Quantitative SERVICES Specimen Blood Narrative Performed At Interpretation: Hepatitis B Surface An tibody [facility] Negative - Patient is considered to be not immu ne to infection with HBV. Positive - Anti-HBs detected at greater than or equal to 12 mIU/mL. Patient is considered to be immune to infection with HBV. Performing Organization Address City/[facility] Phone Number [facility] CLIA: [id number] [place], [place] [address] [address] [place] [address] HAV ANTIBODY (IGG AND IGM) (02/10/2020 2:45 PM CDT) Pathologist Sig nature HAV Total Negative [facility] HAVT Semi-Quantitative 1.91 [facility] Specimen Blood Performing Organization Address City/[facility] Phone Number [facility] CLIA: [id number] [place] [address] [place] [address] GAMMA GLUTAMYLTRANSFERASE (02/10/2020 2:45 PM CDT) Pathologist Sig nature GGT 24 13 - 40 U/L [facility] Specimen Blood Performing Organization Address City/[facility] Phone Number [facility] CLIA: [id number] [place] [address] FERRITIN SERUM (02/10/2020 2:45 PM CDT) Pathologist Sig nature FERRITIN 184.0 11.0 - 264.0 ng/mL [facility] Specimen Blood Narrative Performed At Biotin has been reported to cause a negative [facility] bias, interpret results relative to patient's use of biotin. Performing Organization Address [facility] Phone Number [facility] CLIA: [id number] [place] [address] ALPHA FETOPROTEIN (02/10/2020 2:45 PM CDT) Pathologist Sig nature AFP 3.4 <=7.5 ng/mL [facility] Specimen Blood Narrative Performed At Biotin has been reported to cause a negative bias, int erpret [facility] results relative to patient's use of biotin. Performing Organization Address [facility] Phone Number [facility] CLIA: [id number] [place] [address] [place] [address] CBC WITH DIFF (02/10/2020 2:45 PM CDT) Pathologist Sig nature WBC 9.91 4.30 - 11.10 [facility] 10*3/L [facility] RBC 4.42 3.93 - 5.25 [facility] 10*6/L [facility] HGB 13.0 11.6 - 15.0 g/dL [facility] HCT 38.4 35.7 - 45.2 % [facility] MCV 86.9 80.6 - 95.5 fL [facility] MCH 29.4 25.9 - 32.8 pg [facility] MCHC 33.9 31.6 - 35.1 g/dL [facility] RDW-SD 39.8 39.0 - 49.9 fL [facility] RDW-CV 12.6 12.0 - 15.5 % [facility] PLT 341 166 - 358 [facility] 10*3/L [facility] MPV 9.9 9.5 - 12.9 fL [facility] NRBC/100 WBC 0.0 0.0 - 10.0 /100 [facility] WBCs [facility] NRBC x10^3 <0.01 10*3/L [facility] GRAN MAT (NEUT) % 66.1 % [facility] IMM GRAN % 0.60 % [facility] LYMPH % 25.3 % [facility] MONO % 5.4 % [facility] EOS % 2.1 % [facility] BASO % 0.5 % [facility] GRAN MAT x10^3(ANC) 6.54 1.88 - 7.09 [facility] 10*3/uL HOSPITAL LAB[facility]ORY IMM GRAN x10^3 0.06 0.00 - 0.06 [facility] 10*3/uL [facility] LYMPH x10^3 2.51 1.32 - 3.29 [facility] 10*3/uL [facility] MONO x10^3 0.54 0.33 - 0.92 [facility] 10*3/uL [facility]ITAL [facility] EOS x10^3 0.21 0.03 - 0.39 [facility] 10*3/uL [facility]ITAL [facility] BASO x10^3 0.05 0.01 - 0.07 [facility] 10*3/uL [facility] Specimen Blood Performing Organization Address City/[facility]/Zipcode Phone Number [facility] CLIA: [id number] [place], [place] [id number] LABORATORY [address] FREE T4 (02/10/2020 2:45 PM CDT) [facility] FREE T4 1.31 0.78 - 2.20 ng/dL: [facility] Specimen Blood Performing Organization Address City/[facility]/[place] Phone Number [facility] CLIA: [id number] [place] [address] FREE T3 (02/10/2020 2:45 PM CDT) Pathologist Sig nature FREE T3 5.32 (H) 2.77 - 5.27 pg/mL [facility] Specimen Blood Performing Organization Address [facility] Phone Number [facility] CLIA: [id number] [place] [address] THYROID STIMULATING HORMONE (02/10/2020 2:45 PM CDT) Pathologist Sig nature TSH 0.03 (L) 0.45 - 4.70 mIU/L [facility] Specimen Blood Performing Organization Address [facility] Phone Number [facility] CLIA: [id number] [place] [address] documented in this encounter Visit Diagnoses Diagnosis Essential hypertension - Primary Unspecified essential hypertension Low TSH level Nonspecific abnormal results of thyroid function study Chronic constipation Unspecified constipation Screening for colorectal cancer Special screening for malignant neoplasm s, colon Leukocytosis, unspecified type Abnormal LFTs Other abnormal blood chemistry Panniculitis Panniculitis, unspecified site Abnormal thyroid function test Nonspecific abnormal results of thyroid function study Abnormal results of thyroid function jayesh dies Nonspecific abnormal results of thyroid function study Abnormal findings on diagnostic imaging of liver and biliary tract Abnormal liver enzymes Nonspecific elevation of levels of trans aminase or lactic acid dehydrogenase (LDH) Encounter for screening for other viral diseases Intermittent abdominal pain Abdominal pain, unspecified site Anxiety Anxiety state, unspecified Referral of patient Referral of patient without examination or treatment documented in this encounter Insurance Payer Benefit Plan / Subscriber ID Effective Phone Address T ype Group Dates [facility] [id number] 2019-Ruddy candelario [facility]ly [facility] - MEDICARE nt HMO MANAGED MEDICARE ADVANTAGE documented as of this encounter
--- OUTSIDE RECORDS SUMMARY | 2020-04-13 05:16 | XMS REPORT | Summary of Care ---
:1950 Author Organization [facility] - Health Address [address] [place] [id number] Care Team Providers Name Role Phone Mabel Queen MD Primary Care Provider Reason for Visit Reason Comments LAB WORK Encounter Details Date Type Department Care Team Description 02/10/2020 Communications Billing Analyst Visit [facility] Family Jasbir Queen MD [address] [place] [address] [place] [phone] Abnormal results of thyroid function jayesh dies ; [facility], Adc Fam Pob I Abnormal TSH; [address] [place] [address] Abnormal t hyroid function test; Drive Leukocytosis, unspecified ty pe; [place], [place] Abnormal LFTs; [phone] Abnormal liver enzymes; [phone] Abnormal findin gs on diagnostic imaging of liver and biliary tract ; Encounter for s creening for other viral diseases Allergies Active Allergy Reactions Severity Noted Date Comments Iodine Hives, Itching, Rash 01/11/2020 Latex Hives, Rash 01/11/2020 Morphine Anaphylaxis 01/11/2020 documented as of this encounter (statuses as of 02/10/2020) Medications Medication Sig Dispensed Refills Start Date End Date Status amLODIPine 10 mg Take 1 tablet by 30 tablet 5 02/10/2020 Active tabletIndications: mouth daily. DOSE Essential INCREASE. hypertension linaCLOtide (LINZESS) Take 1 capsule by 30 capsule 5 0 Active 145 mcg mouth daily. capsuleIndications: Chronic constipation dicyclomine 10 mg Take 1 capsule by 30 capsule 0 02/10/2020 Active capsuleIndications: mouth 4 (four) Intermittent times daily as abdominal pain needed for Abdominal pain. citalopram 10 mg Take 1 tablet by 30 tablet 2 02/10/2020 Active tabletIndications: mouth daily. Anxiety documented as of this encounter (statuses as of 02/10/2020) Active Problems Problem Noted Date Hydroureter, right [...] as of this encounter (statuses as of 02/10/2020) Social History Tobacco Use Types Packs/Day Years [...] Signs Not on filedocumented in this encounter Nursing Notes Allyson Monroe - 02/10/2020 4:20 PM CDT Venipuncture collection performed by clean technique on the left anticubitus. Total of 1 attempts were made. Slight pressure and a bandage/dressing were applied to the site(s). The patient experienced no complications. The following specimens were processed according to instructions and sent to [facility] per lab order on today: LT BLUE SST 7 RED LAV 1 PPT DK GREEN (LiHep) DK GREEN (SodH) REID DK BLUE (K2) DK BLUE (S) ACD Blood Culture NIPT/NTD documented in this encounter Plan of Treatment Date Type Specialty Care Team Description 05/11/2020 Office Visit Family Medicine Julian Queen MD [address] [place] [address] [phone] Health Maintenance Due Date Last Done [...] filedocumented in this encounter Visit Diagnoses Diagnosis Abnormal results of thyroid function jayesh dies Nonspecific abnormal results of thyroid function study Abnormal TSH Other abnormal clinical finding Abnormal thyroid function test Nonspecific abnormal results of thyroid function study Leukocytosis, unspecified type Abnormal LFTs Other abnormal blood chemistry Abnormal liver enzymes Nonspecific elevation of levels of trans aminase or lactic acid dehydrogenase (LDH) Abnormal findings on diagnostic imaging of liver and biliary tract Encounter for screening for other viral diseases documented in this encounter Insurance Payer Benefit Plan / Subscriber ID Effective Phone Address T ype Group Dates [facility] [id number] 2019-Ruddy candelario [facility] - MEDICARE nt HMO MANAGED MEDICARE ADVANTAGE documented as of this encounter
--- OUTSIDE RECORDS SUMMARY | 2020-04-13 05:16 | XMS REPORT | Summary of Care ---
:1950 Author Organization [facility] - [facility] Address [address] [place] [address] Care Team Providers Name Role Phone Mabel Queen MD Primary Care Provider Reason for Referral (Routine) Status Reason Specialty Diagnoses / Referred By Referred To Procedures Contact Contact New Request Patient Gastroenterology Diagnoses Chronic constipation Screening for colorectal cancer Panniculitis Bernice, Unknown, Requested Procedures CONSULT/REFERRAL GENERAL SURGERY Edgardo Brito Specific MD Provider [address] [place] [address] [place] [address] Radiology Services (Routine) Status Reason Specialty Diagnoses / Referred By Referred To Procedures Contact Contact New Request Diagnostic Diagnoses Abnormal LFTs Bernice, Radiology Procedures US LIVER Kobi Monroe MD [address] [place] [address] [place] [address] Reason for Visit Reason Comments Abnormal Lab Referral/consult Constipation Anxiety Encounter Details Date Type Department Care Team Description 02/10/2020 Office Visit [facility] Family Kobi Queen ntial hypertension (Primary Dx); Medicine - Eduar Monroe MD Low TSH level; [address] [place] [address] DR Isbell constipation; Drive [place], [place] Screening for colorectal can cer; [place] [address] Leukocytosis, unspecified type; [phone] Abnormal LFTs; [phone] Panniculi tis; Abnormal thyroi d function test; Abnormal result s of thyroid function studies ; Abnormal findin gs on diagnostic imaging of liver and biliary tract ; Abnormal liver enzymes; Encounter for s creening for other viral diseases ; Intermittent ab dominal pain; Anxiety Allergies Active Allergy Reactions Severity Noted Date [...] in this encounter Patient Instructions Patient InstructionsKobi Queen MD - 02/10/2020 2:00 PM CDT Patient [...] and any illicit drugs you may use. [employer] last reviewed this educational content on 05/02/201719992897-6835 [employer]. [address] [place] [address]. All rights reserved. This information is not [...] and any illegal drugs you may use. [employer] last reviewed this educational content on 08/31/201819999903-6187 [employer]. [address] [place] [address]. All rights reserved. This information is not intended as a substitute for professional medical care. Always follow your healthcare professional's instructions. documented in this encounter Progress Notes Kobi Queen MD - 02/10/2020 2:00 PM CDT CC: [...] file Gets together: Not on file Attends jainism service: Not on file Active member of [...] memory normal. Judgment: Judgment normal. Labs Senior Care Provider Visit on 01/11/2020 Component Date Value NA 01/11/2020 137 K 01/11/2020 4.6 CL 01/11/2020 104 CO2 TOTAL 01/11/2020 23 AGAP 01/11/2020 10 BUN 01/11/2020 19 GLUCOSE 01/11/2020 114* CREATININE 01/11/2020 0.83 TOTAL BILI 01/11/2020 0.7 CALCIUM 01/11/2020 10.1 T PROTEIN 01/11/2020 7.6 ALBUMIN 01/11/2020 4.4 ALK PHOS 01/11/2020 102 ALTv 01/11/2020 62* AST(SGOT) 01/11/2020 56* eGFR Calculation (Non-Af* 01/11/2020 68.6 eGFR Calculation (Erica* 01/11/2020 83.1 WBC 01/11/2020 11.43* RBC 01/11/2020 [...] followed byCardiology, the patient should see a Ostomy Care Nurse for consultation if there is a [...] for Abdominal pain. - CONSULT/REFERRAL GENERAL SURGERY Leukocytosis, unspecified type We discussed the general [...] tablet; Take 1 tablet by mouth daily. Plan of care, desired health behaviors, goals, [...] at a future visit. If applicable, the [place] [employer] database was accessed to review any controlled substance prescription claims data. If the patient is taking prescribed medications, the [employer] prescription claims data in [employer] was reviewed to assess patientcompliance with the [...] February 10, 2020, 1:14 PM Physician Attestation Kobi Chery MD, personally performed the services described in this documentation , as scribed by, Venita Dixon in my presence and it is both accurate and complete. Kobi Queen MD February 10, 2020, 1:14 PM documented in this encounter Plan of Treatment Date Type Specialty Care Team Description 02/17/2020 Appointment Radiology Julian Queen MD [address] [place] [address] [phone] 05/11/2020 Office Visit Family Medicine Julian Queen MD [address] [place] [address] [phone] Name Type Priority Associated Diagnoses Date/Ti me [...] nature HIV 1/2 Ag-Ab with Negative Negative [facility] LABORATORY HIV Semi-quantitative 0.14 [facility] LABORATORY Specimen Blood Narrative Performed At Non-reactive for HIV-1 antigen and HIV-1/HIV-2 [facility] LABORATORY antibodies. No laboratory evidence of HIV infection. Repeat in 2-4 weeks if acute HIV infection is suspected. Performing Organization Address City/State/Zipcode Phone Number [facility] CLIA: [id number] [place] [address] HEPATITIS B SURFACE ANTIGEN (02/10/2020 2:45 PM CDT) Pathologist Sig nature HBsAg Negative Negative [facility] LABORATORY SERVICES HBsAg 0.12 [facility] LABORATORY Semi-Quantitative SERVICES Specimen Blood Performing Organization Address City/State/[facility] Phone Number [facility]ORY SERVICES CLIA: [id number] [place] [address] [place] [address] HEPATITIS B SURFACE ANTIBODY (02/10/2020 2:45 PM CDT) Pathologist Sig nature HBsAB Negative [facility]ATORY SERVICES HBsAb 0.00 mIU/mL [facility] LAB[facility] Semi-Quantitative SERVICES Specimen Blood Narrative Performed At Interpretation: Hepatitis B Surface An tibody [facility] SERVICES Negative - Patient is considered to be not immu ne to infection with HBV. Positive - Anti-HBs detected at greater than or equal to 12 mIU/mL. Patient is considered to be immune to infection with HBV. Performing Organization Address [facility] Phone Number [facility]ORY SERVICES CLIA: [id number] [place] [address] [place] [address] HAV ANTIBODY (IGG AND IGM) (02/10/2020 2:45 PM CDT) Pathologist Sig nature HAV Total Negative [facility] SERVICES HAVT Semi-Quantitative 1.91 [facility] LABORATORY SERVICES Specimen Blood Performing Organization Address [facility] Phone Number [facility] SERVICES CLIA: [id number] [place] [address] [place] [address] GAMMA GLUTAMYLTRANSFERASE (02/10/2020 2:45 PM CDT) Pathologist Sig nature GGT 24 13 - 40 U/L [facility] LABOR[facility] Specimen Blood Performing Organization Address [facility] Phone Number [facility] CLIA: [id number] [place] [address] FERRITIN SERUM (02/10/2020 2:45 PM CDT) Pathologist Sig nature FERRITIN 184.0 11.0 - 264.0 ng/mL [facility] LABOR[facility] Specimen Blood Narrative Performed At Biotin has been reported to cause a negative [facility] bias, interpret results relative to patient's use of biotin. Performing Organization Address [facility] Phone Number [facility] CLIA: [id number] [place], [place] [address] LABORATORY [address] ALPHA FETOPROTEIN (02/10/2020 2:45 PM CDT) Pathologist Sig nature AFP 3.4 <=7.5 ng/mL [facility] LABORATORY SERVICES Specimen Blood Narrative Performed At Biotin has been reported to cause a negative bias, int erpret [facility] SERVICES results relative to patient's use of biotin. Performing Organization Address City/State/Zipcode Phone Number [facility]ORY SERVICES CLIA: [id number] [place] [address] [place] [address] CBC WITH DIFF (02/10/2020 2:45 PM CDT) Pathologist Sig nature WBC 9.91 4.30 - 11.10 [facility] 10*3/L [facility] LABORATORY RBC 4.42 3.93 - 5.25 [facility] 10*6/L [facility] LABORATORY HGB 13.0 11.6 - 15.0 g/dL [facility] HCT 38.4 35.7 - 45.2 % [facility] MCV 86.9 80.6 - 95.5 fL [facility] MCH 29.4 25.9 - 32.8 pg [facility] MCHC 33.9 31.6 - 35.1 g/dL [facility] LAB[facility] RDW-SD 39.8 39.0 - 49.9 fL [facility] LABORATORY RDW-CV 12.6 12.0 - 15.5 % [facility] LABORATORY PLT 341 166 - 358 [facility] 10*3/L HOSPITAL LABORATORY MPV 9.9 9.5 - 12.9 fL [facility] LABOR[facility] NRBC/100 WBC 0.0 0.0 - 10.0 /100 [facility] WBCs [facility] LABORATORY NRBC x10^3 <0.01 10*3/L [facility] LABORATORY GRAN MAT (NEUT) % 66.1 % [facility] LABOR[facility] IMM GRAN % 0.60 % [facility] LAB[facility] LYMPH % 25.3 % [facility] MONO % 5.4 % [facility] EOS % 2.1 % [facility] LAB[facility] BASO % 0.5 % [facility] LABORATORY GRAN MAT x10^3(ANC) 6.54 1.88 - 7.09 [facility] 10*3/uL HOSPITAL LABORATORY IMM GRAN x10^3 0.06 0.00 - 0.06 [facility] 10*3/uL HOSPITAL LABORATORY LYMPH x10^3 2.51 1.32 - 3.29 [facility] 10*3/uL HOSPITAL LABORATORY MONO x10^3 0.54 0.33 - 0.92 [facility] 10*3/uL HOSPITAL LABORATORY EOS x10^3 0.21 0.03 - 0.39 [facility] 10*3/uL HOSPITAL LABORATORY BASO x10^3 0.05 0.01 - 0.07 [facility] 10*3/uL HOSPITAL LABORATORY Specimen Blood Performing Organization Address [facility] Phone Number [facility] CLIA: [id number] [place] [address] FREE T4 (02/10/2020 2:45 PM CDT) Pathologist Sig nature FREE T4 1.31 0.78 - 2.20 ng/dL: [facility] LABORATORY Specimen Blood Performing Organization Address [facility] Phone Number [facility] CLIA: [id number] [place] [address] FREE T3 (02/10/2020 2:45 PM CDT) Pathologist Sig nature FREE T3 5.32 (H) 2.77 - 5.27 pg/mL [facility] LABOR[facility] Specimen Blood Performing Organization Address [facility] Phone Number [facility] CLIA: [id number] [place] [address] THYROID STIMULATING HORMONE (02/10/2020 2:45 PM CDT) Pathologist Sig nature TSH 0.03 (L) 0.45 - 4.70 mIU/L [facility] Specimen Blood Performing Organization Address [facility] Phone Number [facility] CLIA: [id number] [place], [place] [address] LABORATORY [address] documented in this [...] pain, unspecified site Anxiety Anxiety state, unspecified documented in this encounter Insurance Payer Benefit Plan / Subscriber ID Effective Phone Address T ype Group Dates [facility] [id number] 2019-Ruddy candelario [facility] - MEDICARE nt HMO MANAGED MEDICARE ADVANTAGE documented as of this encounter
--- OUTSIDE RECORDS SUMMARY | 2020-04-13 05:16 | XMS REPORT | Summary of Care ---
:1950 Author Organization [facility] - [facility] Address [address] [place] [address] Care Team Providers Name Role Phone Mabel Queen MD Primary Care Provider Reason for Referral (Routine) Status Reason Specialty Diagnoses / Referred By Referred To Procedures Contact Contact New Request Patient Gastroenterology Diagnoses Chronic constipation Screening for colorectal cancer Panniculitis Bernice, Unknown, Requested Procedures CONSULT/REFERRAL GENERAL SURGERY Edgardo Brito Specific MD Provider [address] [place] [address] [facility] [place] [place] [address] Radiology Services (Routine) Status Reason Specialty Diagnoses / Referred By Referred To Procedures Contact Contact New Request Diagnostic Diagnoses Abnormal LFTs Bernice, Radiology Procedures US LIVER Kobi Monroe MD [address] [place] [place] [address] [facility] [place] [address] Reason for Visit Reason Comments Abnormal Lab Referral/consult Constipation Anxiety Encounter Details Date Type Department Care Team Description 02/10/2020 Office Visit [facility] Family Kobi Queen ntial hypertension (Primary Dx); Medicine - Eduar Monroe MD Low TSH level; [address] [place] [address] DR Isbell constipation; Drive [place], [place] Screening for colorectal can cer; [place] [address] Leukocytosis, unspecified type; [phone] Abnormal LFTs; [phone] Panniculi tis; Abnormal thyroi d function test; [...] and any illicit drugs you may use. [employer] last reviewed this educational content on 05/02/201719996370-4321 [employer]. [address] [place] [address]. All rights reserved. This information is not [...] and any illegal drugs you may use. [employer] last reviewed this educational content on 08/31/201819990211-0286 [employer]. [address] [place] [address]. All rights reserved. This information is not [...] file Gets together: Not on file Attends sikh service: Not on file Active member of [...] and memory normal. Judgment: Judgment normal. 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 If applicable, the [place] [facility] database was accessed to review any controlled substance prescription claims data. If the patient is taking prescribed medications, the [employer] prescription claims data in [employer] was reviewed to assess patientcompliance with the [...] Description 02/17/2020 Appointment Radiology Julian Queen MD [address] [place] [address] [phone] 05/11/2020 Office Visit Family Medicine Julian Queen MD [address] [place] [address] [phone] Name Type Priority Associated Diagnoses [...] nature HIV 1/2 Ag-Ab with Negative Negative [facility] LABORATORY HIV Semi-quantitative 0.14 [facility] LABORATORY Specimen Blood Narrative Performed At Non-reactive for HIV-1 antigen and HIV-1/HIV-2 [facility] LABORATORY antibodies. No laboratory evidence of HIV infection. Repeat in 2-4 weeks if acute HIV infection is suspected. Performing Organization Address City/State/Zipcode Phone Number [facility] CLIA: [id number] [place] [address] HEPATITIS B SURFACE ANTIGEN (02/10/2020 2:45 PM CDT) Pathologist Sig nature HBsAg Negative Negative [facility] LABORATORY SERVICES HBsAg 0.12 [facility] LABORATORY Semi-Quantitative SERVICES Specimen Blood Performing Organization Address City/State/[facility] Phone Number [facility] LABORATORY SERVICES CLIA: [id number] [place] [address] [place] [address] HEPATITIS B SURFACE ANTIBODY (02/10/2020 2:45 PM CDT) Pathologist Sig nature HBsAB Negative [facility] LABORATORY SERVICES HBsAb 0.00 mIU/mL [facility] LABORATORY Semi-Quantitative SERVICES Specimen Blood Narrative Performed At Interpretation: Hepatitis B Surface An tibody [facility] LABORATORY SERVICES Negative - Patient is considered to be not immu ne to infection with HBV. Positive - Anti-HBs detected at greater than or equal to 12 mIU/mL. Patient is considered to be immune to infection with HBV. Performing Organization Address [facility] Phone Number [facility] LABORATORY SERVICES CLIA: [id number] [place] [address] [place] [address] HAV ANTIBODY (IGG AND IGM) (02/10/2020 2:45 PM CDT) Pathologist Sig nature HAV Total Negative [facility] LABORATORY SERVICES HAVT Semi-Quantitative 1.91 [facility] LABORATORY SERVICES Specimen Blood Performing Organization Address [facility] Phone Number [facility] LABORATORY SERVICES CLIA: [id number] [place] [address] [place] [address] GAMMA GLUTAMYLTRANSFERASE (02/10/2020 2:45 PM CDT) Pathologist Sig nature GGT 24 13 - 40 U/L [facility] LABORATORY Specimen Blood Performing Organization Address [facility] Phone Number [facility] CLIA: [id number] [place] [address] FERRITIN SERUM (02/10/2020 2:45 PM CDT) Pathologist Sig nature FERRITIN 184.0 11.0 - 264.0 ng/mL [facility] LABOR[facility] Specimen Blood Narrative Performed At Biotin has been reported to cause a negative [facility] LABORATORY bias, interpret results relative to patient's use of biotin. Performing Organization Address [facility] Phone Number [facility] CLIA: [id number] [place], [place] [address] LABORATORY [address] ALPHA FETOPROTEIN (02/10/2020 2:45 PM CDT) Pathologist Sig nature AFP 3.4 <=7.5 ng/mL [facility] LABORATORY SERVICES Specimen Blood Narrative Performed At Biotin has been reported to cause a negative bias, int erpret [facility] LABORATORY SERVICES results relative to patient's use of biotin. Performing Organization Address City/State/Zipcode Phone Number [facility] LABORATORY SERVICES CLIA: [id number] [place] [address] [place] [address] CBC WITH DIFF (02/10/2020 2:45 PM CDT) Pathologist Sig nature WBC 9.91 4.30 - 11.10 [facility] 10*3/L [facility] LABORATORY RBC 4.42 3.93 - 5.25 [facility] 10*6/L [facility] LABOR[facility] HGB 13.0 11.6 - 15.0 g/dL [facility] LABORATORY HCT 38.4 35.7 - 45.2 % [facility]ORATORY MCV 86.9 80.6 - 95.5 fL [facility]ORATORY MCH 29.4 25.9 - 32.8 pg [facility] MCHC 33.9 31.6 - 35.1 g/dL [facility]OR[facility]ORY RDW-SD 39.8 39.0 - 49.9 fL [facility] LABOR[facility] RDW-CV 12.6 12.0 - 15.5 % [facility] LABORATORY PLT 341 166 - 358 [facility] 10*3/L HOSPITAL LABORATORY MPV 9.9 9.5 - 12.9 fL [facility] LABORATORY NRBC/100 WBC 0.0 0.0 - 10.0 /100 [facility] WBCs [facility] LABORAT[facility] NRBC x10^3 <0.01 10*3/L [facility] LABORATORY GRAN MAT (NEUT) % 66.1 % [facility] LABORATORY IMM GRAN % 0.60 % [facility] LYMPH % 25.3 % [facility] MONO % 5.4 % [facility] LAB[facility] EOS % 2.1 % [facility] LAB[facility] BASO % 0.5 % [facility] LABORATORY GRAN MAT x10^3(ANC) 6.54 1.88 - 7.09 [facility] 10*3/uL HOSPITAL LABORATORY IMM GRAN x10^3 0.06 0.00 - 0.06 [facility] 10*3/uL HOSPITAL LABORATORY LYMPH x10^3 2.51 1.32 - 3.29 [facility] 10*3/uL HOSPITAL LABORATORY MONO x10^3 0.54 0.33 - 0.92 [facility] 10*3/uL HOSPITAL LABORATORY EOS x10^3 0.21 0.03 - 0.39 [facility] 10*3/uL HOSPITAL LABORATORY BASO x10^3 0.05 0.01 - 0.07 [facility] 10*3/uL HOSPITAL LABORATORY Specimen Blood Performing Organization Address [facility] Phone Number [facility] CLIA: [id number] [place] [address] FREE T4 (02/10/2020 2:45 PM CDT) Pathologist Sig nature FREE T4 1.31 0.78 - 2.20 ng/dL: [facility] Specimen Blood Performing Organization Address [facility] Phone Number [facility] CLIA: [id number] [place] [address] FREE T3 (02/10/2020 2:45 PM CDT) Pathologist Sig nature FREE T3 5.32 (H) 2.77 - 5.27 pg/mL [facility] LABOR[facility] Specimen Blood Performing Organization Address [facility] Phone Number [facility] CLIA: [id number] [place] [address] THYROID STIMULATING HORMONE (02/10/2020 2:45 PM CDT) Pathologist Sig nature TSH 0.03 (L) 0.45 - 4.70 mIU/L [facility] LABORATORY Specimen Blood Performing Organization Address [facility] Phone Number [facility] CLIA: [id number] [place], [place] [address] LABORATORY [address] documented in this [...] Effective Phone Address T ype Group Dates [facility] [id number] 2019-Ruddy candelario [facility] - MEDICARE nt HMO MANAGED MEDICARE ADVANTAGE documented as of this encounter
--- OUTSIDE RECORDS SUMMARY | 2020-04-13 05:17 | XMS REPORT | Summary of Care ---
:1950 Author Organization [facility] - [facility] Address [address] [place] [address] Care Team Providers Name Role Phone Mabel Queen MD Primary Care Provider Reason for Visit Reason Comments Rx Concern/Question Encounter Details Date Type Department Care Team Description 03/14/2020 Telephone [facility] Family Kobi Queen R x Concern/Question Medicine - Eduar CARRERO [address] [place] [address] Dr moreland [address] [place] [address] [place] [address] [place] [phone] Allergies Active Allergy Reactions Severity Noted Date Comments Iodine Hives, Itching, Rash 01/11/2020 Latex Hives, Rash 01/11/2020 Morphine Anaphylaxis 01/11/2020 documented as of this encounter (statuses as of 03/15/2020) Medications Medication Sig Dispensed Refills Start Date End Date Status amLODIPine 10 mg Take 1 tablet by 30 tablet 5 02/10/2020 Active tabletIndications: mouth daily. DOSE Essential INCREASE. hypertension dicyclomine 10 mg Take 1 capsule by 30 capsule 0 02/10/2020 Active capsuleIndications: mouth 4 (four) Intermittent times daily as abdominal pain needed for Abdominal pain. citalopram 10 mg Take 1 tablet by 30 tablet 2 02/10/2020 Active tabletIndications: mouth daily. Anxiety documented as of this encounter (statuses as of 03/15/2020) Active Problems Problem Noted Date Hyperthyroidism 02/17/2020 Dilated bile duct 02/17/2020 Fatty liver 02/17/2020 Liver lesion 02/17/2020 Anxiety 02/11/2020 Abnormal liver enzymes 02/11/2020 Chronic [...] as of this encounter (statuses as of 03/15/2020) Immunizations Name Administration Dates Next Due Influenza High Dose 03/13/2020 documented as of this encounter Social History Tobacco Use Types Packs/Day Years [...] been in contact with No / Unsure 02/29/2020 10:23 AM CDT someone who was confirmed or 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 documented as of this encounter Last Filed Vital Signs Not on filedocumented in this encounter Miscellaneous Notes Telephone Encounter - Karina Paulino - 03/15/2020 1:23 PM CDTPatient is scheduling preop clearance and she will call Mri ordering doctor for medication elephone Encounter - Michelle Harrell - 03/15/2020 11:49 AM CDTPatient is calling and is requesting an update on encounter below, patient stated her apt is at 8 AM [address]ara and is requesting to get medication tonight. elephone Encounter - Karina Paulino A - 03/14/2020 4:27 PM CDTPlease review elephone Encounter - Michelle Harrell - 03/14/2020 10:03 AM CDTPatient is calling and has stated she sent in a [employer] chart message on 03/09 to request a medication tohelp calm her down during an MRI scan due to being claustrophobic, patient has MRI scheduled for 03/16, please call patient back in regards to this encounter. documented in this encounter Plan of Treatment Date Type Specialty Care Team Description 03/16/2020 Appointment Radiology Vj Cook MD [address] [place] [address] 05 03/21/2020 Office Visit Family Medicine Kobi Queen MD [address] [place] [address] [phone] 03/24/2020 Office Visit Endocrinology Diabetes & Kesired Kirstie gee MD Metabolism [address] [place], [place] 107663 05/11/2020 Office Visit Family Kobi Anderson MD [address] [place] [address] [phone] Health Maintenance Due Date Last Done Comments FOOT EXAM 01/14/1970 DTaP,Tdap,and Td Vaccines (1 - Tdap) 01/14/1971 COLON CANCER SCREENING ANNUAL FIT/FOBT 01/14/2002 COLON [...] 01/10/2021 01/11/2020 EYE EXAM 02/02/2021 02/03/2020, 02/03/2020 Breast Cancer Screening (MAMMOGRAM) 03/13/2021 03/13/2020 HEPATITIS C (HCV) SCREEN Completed 01/11/2020 documented as of this encounter Results Not on filedocumented in this encounter Insurance Payer Benefit Plan / Subscriber ID Effective Phone Address T ype Group Dates [facility]/JOANN [id number] 2019-Ruddy candelario [facility] - MEDICARE nt HMO MANAGED MEDICARE ADVANTAGE documented as of this encounter
--- OUTSIDE RECORDS SUMMARY | 2020-04-13 05:17 | XMS REPORT | Summary of Care ---
:1950 Author Organization [facility] Address [address] [place] [address] Care Team Providers Name Role Phone Mabel Queen MD Primary Care Provider Reason for Visit Auth/Cert Status Reason Specialty Diagnoses / Procedures Referred By Gill aleman Referred To Contact Radiology [facility] Ultrasound [address] [place] [phone] Phone: Fax: Encounter Details Date Type Department Care Team Description 02/17/2020 Hospital Encounter [facility] Bran Queen Arrived [place] [facility] [address] moreland [address] [place] [address] [place] [address] [place] [address] [phone] Allergies Active Allergy Reactions Severity Noted Date Comments Iodine Hives, Itching, Rash 01/11/2020 Latex Hives, Rash 01/11/2020 Morphine Anaphylaxis 01/11/2020 documented as of this encounter (statuses as of 02/18/2020) Medications Medication Sig Dispensed Refills Start Date [...] as of this encounter (statuses as of 02/18/2020) Active Problems Problem Noted Date Hyperthyroidism 02/17/2020 [...] as of this encounter (statuses as of 02/18/2020) Social History Tobacco Use Types Packs/Day Years [...] Office Visit Family Medicine Julian Queen MD [address] [place] [address] [phone] Health Maintenance Due Date Last Done [...] Name Priority Date/Time Associated Diagnosis Comme nts US ABDOMEN LIMITED Routine 02/17/2020 8:23 AM Abnormal LFTs R esults for this CDT procedure are i n the results section. documented in this encounter Results US ABDOMEN LIMITED (02/17/2020 8:23 AM CDT) Specimen Narrative Performed At HISTORY: Abnormal LFTs. PACS/VR/DOSE COMPARISON: CT scan of abdomen and pelvi s dated 01/31/2020. TECHNIQUE: Liver and right kidney were evaluated in mu ltiple planes without and with color imaging. FINDINGS: Liver is approximately 16.8 cm and showed mi ld diffuse increased echotexture of the parenchyma throughout with a small 6 mm hypoechoic lesion in the subdiaphragmatic dorsal ri ght lobe of the liver. Hepatic/portal venous systems appear patent with hepat opedal portal venous flow confirmed. No fluid is seen in the right upper ab domen. No dilatation of the intrahepatic biliary ducts. Gallbladder has been removed. Common hepatic duct collette ures approximately 7 mm. Right kidney is 13.9 x 5.1 x 5.4 cm and showed mild hydronephrosis. No perinephric fluid collection detected. CONCLUSIONS: 1. Upper normal size liver with mild dif fuse hepatic steatosis and subcentimeter cystic lesion in the dorsal subdiaphragm atic surface of right lobe of the liver, unchanged when compar ed with recent CT scan of 01/31/2020. 2. S/P cholecystectomy. Slightly dilated extrahepatic bile duct noted, unchanged when compared with CT scan of 01/31/2020. 3. Right kidney showed compensatory hype rtrophy and mild hydronephrosis. Hydronephrosis is slightly less severe t glover in ultrasound study dated 01/18/2020. Procedure Note [facility], Radiant Results Inft User - 2019 8:29 AM CDT HISTORY: Abnormal LFTs. COMPARISON: CT scan of abdomen and pelvi s dated 01/31/2020. TECHNIQUE: Liver and right kidney were e valuated in multiple planes without and with color imaging. FINDINGS: Liver is approximately 16.8 cm and showed mild diffuse increased echotexture of the parenchyma throughout with a small 6 mm hypoechoic lesion in the subdiaphragmatic dorsal ri ght lobe of the liver. Hepatic/portal venous systems appear pat ent with hepatopedal portal venous flow confirmed. No fluid is seen in the right upper abdomen. No dilatation of the intrahepatic biliary ducts. Gallbladder has been removed. Common hep atic duct measures approximately 7 mm. Right kidney is 13.9 x 5.1 x 5.4 cm and showed mild hydronephrosis. No perinephric fluid collection detected. CONCLUSIONS: 1. Upper normal size liver with mild dif fuse hepatic steatosis and subcentimeter cystic lesion in the dorsa l subdiaphragmatic surface of right lobe of the liver, unchanged when compar ed with recent CT scan of 01/31/2020. 2. S/P cholecystectomy. Slightly dilated extrahepatic bile duct noted, unchanged when compared with CT scan of 01/31/2020. 3. Right kidney showed compensatory hype rtrophy and mild hydronephrosis. Hydronephrosis is slightly less severe t glovre in ultrasound study dated 01/18/2020. Performing Organization Address City/State/Zipcode Phone Number PACS/VR/DOSE documented in this encounter Visit Diagnoses Diagnosis Abnormal LFTs Other abnormal blood chemistry documented in this encounter Insurance Payer Benefit Plan / Subscriber ID Effective Phone Address T ype Group Dates [facility] [id number] 2019-Ruddy candelario [facility] - MEDICARE nt HMO MANAGED MEDICARE ADVANTAGE documented as of this encounter
--- OUTSIDE RECORDS SUMMARY | 2020-04-13 05:17 | XMS REPORT | Summary of Care ---
:1950 Author Organization [facility] - [facility] Address [address] [place] [address] Care Team Providers Name Role Phone Mabel Queen MD Primary Care Provider Reason for Visit Reason Comments Forms Surgical Clearance Encounter Details Date Type Department Care Team Description 03/14/2020 Telephone [facility] Family Kobi Queen F orms (Surgical Medicine - [place] Clearance ) [address] [place] [address] [place] [phone] Allergies Active Allergy Reactions Severity Noted Date [...] Telephone Encounter - Karina Paulino - 03/15/2020 12:04 PM CDTPlease call to schedule surgery clearance appointment elephone Encounter - Kobi Queen MD - 03/14/2020 5:45 PM CDTA clearance of any kind requires an appointment. Telephone Encounter - Karina Paulino - 03/14/2020 1:09 PM CDTNo forms needed just labs and if she is okay for surgery elephone Encounter - Christine Pinon - 03/14/2020 10:[address] Martinez office is calling to check the stating of the surgical clearance form thatwas faxed over yesterday. Denisse is requesting a call back if needed. documented in this encounter Plan of Treatment Date Type Specialty Care Team Description 03/16/2020 Appointment Radiology Vj Cook MD [address] [place], [place] [address] 03/21/2020 Office Visit Family Medicine Kobi Queen MD [address] [place] [address] [phone] 03/24/2020 Office Visit Endocrinology Diabetes & Kesired Kirstie gee MD Metabolism [address] [place] [phone] 05/11/2020 Office Visit Family Kobi Anderson MD [address] [place] [address] [phone] Health Maintenance Due Date Last Done Comments [...] ID Effective Phone Address T ype Group [facility] SERGIO/JOANN [id number] 2019-Ruddy Bowens [facility] - [facility]ICARE [facility]ED [facility]AGE documented as of this encounter
--- OUTSIDE RECORDS SUMMARY | 2020-04-13 05:17 | XMS REPORT | Summary of Care ---
:1950 Author Organization [facility] Address [address] [place] [address] Care Team Providers Name Role Phone Mabel Queen MD Primary Care Provider Reason for Referral (Routine) Status Reason Specialty Diagnoses / Referred By Referred To Procedures Contact Contact Pending Patient is Gastroenterology Diagnoses Abnormal LFTs Fatty liver Liver lesion Dilated bile duct Orion Queen Established Procedures CONSULT/REFERRAL GASTROENTEROLOGY Kobi Monroe, with a Specific Provider [address] [place] [address] [place] [address] Phone: Fax: Reason for Visit Reason Comments REFERRAL Encounter Details Date Type Department Care Team Description 02/17/2020 Case Management [facility] Family Kobi Queen , REFERRAL Medicine - Eduar CARRERO [address] [place] [address] Dr moreland [address] [place] [address] [place] [address] [address] [place], [place] [phone] Allergies Active Allergy Reactions Severity Noted Date Comments Iodine Hives, Itching, Rash 01/11/2020 Latex Hives, Rash 01/11/2020 Morphine Anaphylaxis 01/11/2020 documented as of this encounter (statuses as of 02/17/2020) Medications Medication Sig Dispensed Refills Start Date [...] as of this encounter (statuses as of 02/17/2020) Active Problems Problem Noted Date Hyperthyroidism 02/17/2020 [...] as of this encounter (statuses as of 02/17/2020) Social History Tobacco Use Types Packs/Day Years [...] Office Visit Family Medicine Julian Queen MD [address] [place] [address] 15-4112 [phone] Health Maintenance Due Date Last Done Comments [...] this encounter Visit Diagnoses Diagnosis Abnormal LFTs - Primary Other abnormal blood chemistry Fatty liver Other chronic nonalcoholic liver disease Liver lesion Other specified disorders of liver Dilated bile duct Other specified disorders of biliary tra ct documented in this encounter Insurance Payer Benefit Plan / Subscriber ID Effective Phone Address T ype Group Dates [facility]/[place] [id number] 2019-Ruddy candelario [facility] - MEDICARE nt HMO MANAGED MEDICARE ADVANTAGE documented as of this encounter
--- OUTSIDE RECORDS SUMMARY | 2020-04-13 05:17 | XMS REPORT | Summary of Care ---
:1950 Author Organization [facility] - Health Address [address] [place] [address] Care Team Providers Name Role Phone Mabel Queen MD Primary Care Provider Encounter Details Date Type Department Care Team Description 02/17/2020 Orders Only [facility] Doctor Unassigned, No [address] [facility] Name [place] [phone] Allergies Active Allergy Reactions Severity Noted Date [...] Active Problems Problem Noted Date Hyperthyroidism 02/17/2020 Anxiety 02/11/2020 Abnormal liver enzymes 02/11/2020 [...] Date Type Specialty Care Team Description 02/17/2020 Hospital Encounter Radiology Leroy Queen MD Arrived [address] [place] [address] [phone] 05/11/2020 Office Visit Family Medicine Julian Queen MD [address] [place], [place] [address] [phone] Health Maintenance Due Date Last Done Comments [...] Name Priority Date/Time Associated Diagnosis Comme nts CONSENT/REFUSAL FOR Routine 02/17/2020 7:47 AM DIAGNOSIS AND TREATMENT CDT ASSIGNMENT OF BENEFITS Routine 02/17/2020 7:46 AM CDT documented in this encounter Results Not on filedocumented in this encounter Insurance Payer Benefit Plan / Subscriber ID Effective Phone Address T ype Group Dates [facility] [id number] 2019-Ruddy Bowens [facility] - MEDICARE nt [facility] MANAGED MEDICARE ADVANTAGE documented as of this encounter
--- OUTSIDE RECORDS SUMMARY | 2020-04-13 05:17 | XMS REPORT | Summary of Care ---
:1950 Author Organization [facility] - [facility] Address [address] [place] [address] Care Team Providers Name Role Phone Mabel Queen MD Primary Care Provider Encounter Details Date Type Department Care Team Description 03/15/2020 Patient Secure [facility] Family Julian Queen, [place] - Eduar CARRERO [address] [place] [address] Dr moreland [address] [place] [address] [place] [address] [address] [place], [place] [phone] Allergies Active Allergy Reactions Severity Noted Date Comments Iodine Hives, Itching, Rash 01/11/2020 Latex Hives, Rash 01/11/2020 Morphine Anaphylaxis 01/11/2020 documented as of this encounter (statuses as of 03/16/2020) Medications Medication Sig Dispensed Refills Start Date [...] as of this encounter (statuses as of 03/16/2020) Active Problems Problem Noted Date Hyperthyroidism 02/17/2020 [...] as of this encounter (statuses as of 03/16/2020) Immunizations Name Administration Dates Next Due Influenza [...] this encounter Miscellaneous Notes Telephone Encounter - Amanda Hernandez - 03/16/2020 8:30 AM CDTLVMTRC to assist with scheduling. elephone Encounter - Kobi Queen MD - 03/15/2020 10:39 PM CDTShe will need a telehealth visit for this because a controlled substance will likely need to be prescribed. documented in this encounter Plan of Treatment Date Type Specialty Care Team Description 03/16/2020 Hospital Encounter Radiology Vj Cook, Arr yesenia CARRERO [address] [place], [place] [address] 03/21/2020 Office Visit Family Medicine Kobi Queen MD [address] [place] [phone] 03/24/2020 Office Visit Endocrinology Diabetes & Kirstie Contreras , Metabolism [address] [place] [address] 05/11/2020 Office Visit Family Medicine Kobi Queen MD [address] [place] [phone] Health Maintenance Due Date Last Done Comments [...] 65+ (1 of 1 - 01/14/2017 PPSV23) HgA1C 07/13/2020 01/11/2020 CREATININE (SERUM) 01/10/2021 01/11/2020 Depression Screening 01/10/2021 01/11/2020 LDL-C 01/10/2021 01/11/2020 URINE MICROALBUMIN 01/10/2021 01/11/2020 EYE EXAM 02/02/2021 02/03/2020, 02/03/2020 Breast Cancer Screening (MAMMOGRAM) 03/13/2021 03/13/2020 HEPATITIS C (HCV) SCREEN Completed 01/11/2020 INFLUENZA VACCINE Completed 03/13/2020 documented as of this encounter Results Not on filedocumented in this encounter Insurance Payer Benefit Plan / Subscriber ID Effective Phone Address T ype Group Dates [facility]/JOANN [id number] 2019-Ruddy Bowens [facility] - MEDICARE nt HMO MANAGED MEDICARE ADVANTAGE documented as of this encounter
--- OUTSIDE RECORDS SUMMARY | 2020-04-13 05:17 | XMS REPORT | Summary of Care ---
:1950 Author Organization [facility] - [facility] Address [address] [place] [address] Care Team Providers Name Role Phone Mabel Queen MD Primary Care Provider Reason for Visit Reason Comments Assessment Encounter Details Date Type Department Care Team Description 03/14/2020 Telephone [facility] Family Medicine Kobi Rainey MD Assessment - [address] [place] [address] [place] [address] [phone] Allergies Active Allergy Reactions Severity Noted Date Comments Iodine Hives, Itching, Rash 01/11/2020 Latex Hives, Rash 01/11/2020 Morphine Anaphylaxis 01/11/2020 documented as of this encounter (statuses as of 03/14/2020) Medications Medication Sig Dispensed Refills Start Date [...] as of this encounter (statuses as of 03/14/2020) Active Problems Problem Noted Date Hyperthyroidism 02/17/2020 [...] as of this encounter (statuses as of 03/14/2020) Social History Tobacco Use Types Packs/Day Years [...] this encounter Miscellaneous Notes Telephone Encounter - Deanna Cason - 03/14/2020 1:30 PM CDTVisit summary from [facility] placed in nurse box documented in this encounter Plan of Treatment Date Type Specialty Care Team Description 03/16/2020 Appointment Radiology Vj Cook MD [address] [place] [address] 03/24/2020 Office Visit Endocrinology Diabetes & Kesired Kirstie gee MD Metabolism [address] [place] [address] [phone] 05/11/2020 Office Visit Family Medicine Kobi Queen MD [address] [place] [phone] Health Maintenance Due Date Last Done Comments [...] Phone Address T ype Group Dates [facility]/[employer] [id number] 2019-Ruddy candelario [employer] - MEDICARE nt O MANAGED MEDICARE ADVANTAGE documented as of this encounter
--- OUTSIDE RECORDS SUMMARY | 2020-04-13 05:17 | XMS REPORT | Summary of Care ---
:[address] [facility] - Health Address [address] [place] [address] Care Team Providers Name Role Phone Mabel Queen MD Primary Care Provider Reason for Visit Reason Comments Medicare Annual Wellness Encounter Details Date Type Department Care Team Description 02/15/2020 Pre Visit Outreach [facility] Family Julian Queen Medicare Annual Medicine - Eduar Monroe MD Wellness [address] [place] [address] DR Aldana [facility] [place] [phone] Allergies Active Allergy Reactions Severity Noted Date Comments Iodine Hives, Itching, Rash 01/11/2020 Latex Hives, Rash 01/11/2020 Morphine Anaphylaxis 01/11/2020 documented as of this encounter (statuses as of 02/15/2020) Medications Medication Sig Dispensed Refills Start Date [...] as of this encounter (statuses as of 02/15/2020) Active Problems Problem Noted Date Anxiety 02/11/2020 [...] as of this encounter (statuses as of 02/15/2020) Social History Tobacco Use Types Packs/Day Years [...] this encounter Miscellaneous Notes Telephone Encounter - Yanely Anderson - 02/15/2020 1:54 PM CDTAnnual Wellness Visit - Pre Visit Outreach 02/15/20 Patient name: Samantha Green Patient First outreach regarding Annual Wellness Visit. Call outcome: patient stated she has a lot of visits coming up and was not aware of having to schedule this visit now since PCP said she'd see her in May. Would rather schedule this later on maybe after May. Adding a note to appointment in May. HRA outcome: Eligibility: New medicare id needed to verify eligibility Yanely Anderson Health Maintenance Team documented in this encounter Plan of Treatment Date Type Specialty Care Team Description 02/17/2020 Appointment Radiology Julian Queen MD [address] [place], [place] [phone] 05/11/2020 Office Visit Family Medicine Julian Queen MD [address] [place], [place] [phone] Health Maintenance Due Date Last Done [...] Address T ype Group Dates [employer] [place]/JOANN [id number] 2019-Ruddy candelario Adv [employer] - MEDICARE nt O MANAGED MEDICARE ADVANTAGE documented as of this encounter
--- OUTSIDE RECORDS SUMMARY | 2020-04-13 05:17 | XMS REPORT | Summary of Care ---
:1950 Author Organization [facility] - [facility] Address [address] [place] [address] Care Team Providers Name Role Phone Mabel Queen MD Primary Care Provider Reason for Referral (LINDA) Status Reason Specialty Diagnoses / Referred By Referred To Procedures Contact Contact New Request Endocrinology Diagnoses Hyperthyroidism Bernice Diabetes & Procedures CONSULT/REFERRAL ENDOCRINOLOGY Preferred Location: [facility] Kobi Monroe MD [address] [place] [address] Reason for Visit Reason Comments REFERRAL Encounter Details Date Type Department Care Team Description 02/17/[address] Case [address] [facility] Family Kobi Queen , REFERRAL Medicine - Eduar CARRERO [address] [place] [address] Dr more[address] [place] [address] [place] [address] [address] [place], [place] [phone] Allergies Active Allergy Reactions Severity Noted [...] 02/17/2020 Appointment Radiology Julian Queen MD [address] [place], [place] [phone] 05/11/2020 Office Visit Family Medicine Julian Queen MD [address] [place] [phone] Health Maintenance Due Date Last [...] filedocumented in this encounter Visit Diagnoses Diagnosis Hyperthyroidism - Primary Thyrotoxicosis without mention of goiter or other cause, without mention of thyrotoxic crisis or storm documented in this encounter Insurance Payer Benefit Plan / Subscriber ID Effective Phone Address T ype Group Dates [facility] [id number] 2019-Ruddy candelario Adv [employer] - MEDICARE HMO MANAGED MEDICARE ADVANTAGE documented as of this encounter
--- OUTSIDE RECORDS SUMMARY | 2020-04-13 05:18 | XMS REPORT | Summary of Care ---
:1950 Author Organization [facility] Address [address] [place] [address] Care Team Providers Name Role Phone Mabel Queen MD Primary Care Provider Reason for Visit MRI/CAT Scan (Routine) Status Reason Specialty Diagnoses / Referred By Referred To Procedures Contact Contact New Request Diagnostic Diagnoses Liver mass LIVER MASS Vj Cook Radiology Procedures MR ABDOMEN WO CONTRAST MR ABDOMEN W WO CONTRAST CHG MRI, ABDOMEN, COMBO MR ABDOMEN W WO CONTRAST MD Mikhail [address] [place] [address] Encounter Details Date Type Department Care Team Description 03/16/2020 Hospital Encounter [facility] Caprice Cook Arrived [place] [facility] [address] [place] [address] Dr moreland [address] [place] [address] [address] [place], [place] [id number] Allergies Active Allergy Reactions Severity Noted Date Comments Iodine Hives, Itching, Rash 01/11/2020 Latex Hives, Rash 01/11/2020 Morphine Anaphylaxis 01/11/2020 documented as of this encounter (statuses as of 03/17/2020) Medications Medication Sig Dispensed Refills Start Date [...] as of this encounter (statuses as of 03/17/2020) Active Problems Problem Noted Date Hyperthyroidism 02/17/2020 [...] as of this encounter (statuses as of 03/17/2020) Immunizations Name Administration Dates Next Due Influenza [...] Treatment Date Type Specialty Care Team Description 03/21/2020 Office Visit Family Medicine Kobi Queen MD [address] [place] [address] [phone] 03/24/2020 Office Visit Endocrinology Diabetes & Kes[place] Kirstie gee MD Metabolism [address] [place] [address] [phone] 05/11/2020 Office Visit Family Medicine Kobi Queen MD [address] [place] [address] [phone] Health Maintenance Due Date Last Done Comments [...] Completed 03/13/2020 documented as of this encounter Procedures Procedure Name Priority Date/Time Associated Diagnosis Comme nts MR ABDOMEN WO Routine 03/16/2020 9:49 AM Liver mass Results for this CONTRAST CDT procedure are i n the results section. documented in this encounter Results MR ABDOMEN WO CONTRAST (03/16/2020 9:49 AM CDT) Specimen Narrative Performed At HISTORY: Liver mass. PACS/VR/DOSE TECHNIQUE: MRI studies of the abdomen we re obtained using T2 SSFSE, dual echo FSPGR, coronal VIBE/T2 HASTE, axial DWI, axial LAVA/T2 HASTE sequences. MRCP study is also obtained. Contrast enhanced MRI study was deferred due to histor y of only one kidney with hydronephrosis. Also noncontrast en hanced CT scan of 01/31/2020 was reviewed and felt that contrast enhanced study was not absolutely needed at this time. FINDINGS: Lower portions of the lungs included appear clear. No pleural effusion or pericardial effusion. No definite eviden ce of a hiatal hernia. Left nephrectomy noted. No enlarged lymph nodes in the retr operitoneum or aortic aneurysm. Pancreas showed diffuse atroph y in head and body portions. Visualized intestines appear normal. Rig ht adrenal gland appears normal. Left adrenal gland is probably removed. Visualized bones showed some nonspecific lesions in T1 1 and T12 vertebral body, diffuse lesion in L2 vertebral bod y, likely incidental benign bone lesion such as hemangioma. LIVER AND SPLEEN: Liver is enlarged, 19. 8 cm in length and showed mild generalized loss of signal in the out of phase SPGR imaging, indicating mild diffuse hepatic steatosis. Spleen i s also enlarged, measuring 4.8 x 7.5 cm. 7 mm lesion is seen in the dorsal subdiaphragmatic seg ment #7 of the right lobe of the liver. The lesion exhibits signal intensit ies consistent with simple cyst. The MRCP study showed cholecystectomy an d generalized dilatation of the biliary ductal system. Common hepatic du ct is 10 to 11 mm in diameter. Pancreatic duct is not dilated. No stone visualized in the biliary ducts. CONCLUSIONS: 1. Hepatosplenomegaly with diffuse hepat ic steatosis. 2. 7 mm simple cyst in the dorsal subdiaphragmatic rig ht lobe of the liver. 3. S/P left nephrectomy and left adrenal ectomy. Right kidney showed moderate hydronephrosis. 4. S/P cholecystectomy. Generalized dilatation of the biliary ducts noted without any stone in the duct. Pancreas showed atrophy involving portions of head and body. Pancreatic duct is not dilated. Procedure Note [facility], Radiant Results Inft User - 2019 10:11 AM CDT HISTORY: Liver mass. TECHNIQUE: MRI studies of the abdomen we re obtained using T2 SSFSE, dual echo FSPGR, coronal VIBE/T2 HASTE, axial DWI, axial LAVA/T2 HASTE sequences. MRCP study is also obtained. Contrast enhanced MRI study was deferred due to history of only one kidney with hydronephrosis. Also noncontrast en hanced CT scan of 01/31/2020 was reviewed and felt that contrast enhanced study was not absolutely needed at this time. FINDINGS: Lower portions of the lungs included isrrael ear clear. No pleural effusion or pericardial effusion. No definite eviden ce of a hiatal hernia. Left nephrectomy noted. No enlarged lymph nod es in the retroperitoneum or aortic aneurysm. Pancreas showed diffuse atroph y in head and body portions. Visualized intestines appear normal. Rig ht adrenal gland appears normal. Left adrenal gland is probably removed. Visualized bones showed some nonspecific lesions in T11 and T12 vertebral body, diffuse lesion in L2 vertebral bod y, likely incidental benign bone lesion such as hemangioma. LIVER AND SPLEEN: Liver is enlarged, 19. 8 cm in length and showed mild generalized loss of signal in the out of phase SPGR imaging, indicating mild diffuse hepatic steatosis. Spleen i s also enlarged, measuring 4.8 x 7.5 cm. 7 mm lesion is seen in the dorsal subdia phragmatic segment #7 of the right lobe of the liver. The lesion exhibits s ignal intensities consistent with simple cyst. The MRCP study showed cholecystectomy an d generalized dilatation of the biliary ductal system. Common hepatic du ct is 10 to 11 mm in diameter. Pancreatic duct is not dilated. No stone visualized in the biliary ducts. CONCLUSIONS: 1. Hepatosplenomegaly with diffuse hepat ic steatosis. 2. 7 mm simple cyst in the dorsal subdia phragmatic right lobe of the liver. 3. S/P left nephrectomy and left adrenal ectomy. Right kidney showed moderate hydronephrosis. 4. S/P cholecystectomy. Generalized dila tation of the biliary ducts noted without any stone in the duct. Pancreas showed atrophy involving portions of head and body. Pancreatic duct is not dilated. Performing Organization Address City/State/Zipcode Phone Number PACS/VR/DOSE documented in this encounter Visit Diagnoses Diagnosis Liver mass Unspecified disorder of liver documented in this encounter Insurance Payer Benefit Plan / Subscriber ID Effective Phone Address T ype Group Dates [facility] [id number] 2019-Ruddy candelario [facility] - MEDICARE nt HMO MANAGED MEDICARE ADVANTAGE documented as of this encounter
--- OUTSIDE RECORDS SUMMARY | 2020-04-13 05:18 | XMS REPORT | Summary of Care ---
:1950 Author Organization [facility] Address [address] [place] [address] Care Team Providers Name Role Phone Mabel Queen MD Primary Care Provider Reason for Visit Reason Comments Orders Encounter Details Date Type Department Care Team Description 03/23/2020 Case Management [facility] Family Kobi Queen , Orders Medicine - Eduar CARRERO [address] [place] [address] Dr moreland [address] [place] [address] [place] [address] [place] [phone] Allergies Active Allergy Reactions Severity Noted Date Comments Iodine Hives, Itching, Rash 01/11/2020 Latex Hives, Rash 01/11/2020 Morphine Anaphylaxis 01/11/2020 documented as of this encounter (statuses as of 03/23/2020) Medications Medication Sig Dispensed Refills Start Date [...] 2 02/10/2020 Active tabletIndications: mouth daily. Anxiety ESTRADIOL VAGINAL Insert 0.01 % into 0 Active vagina. Uses 3 x per week OMEPRAZOLE MAGNESIUM Take 40 mg by 0 Active ORAL mouth daily. documented as of this encounter (statuses as of 03/23/2020) Active Problems Problem Noted Date Hyperthyroidism 02/17/2020 [...] as of this encounter (statuses as of 03/23/2020) Immunizations Name Administration Dates Next Due Influenza High Dose 03/13/2020 Pneumococcal Polysaccharide, PPSV23 (PNEUMOVAX) 03/21/2020 documented as of this encounter Social History [...] been in contact with No / Unsure 03/21/2020 2:53 PM CDT someone who was confirmed or 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 documented as of this encounter Last Filed Vital Signs Not on filedocumented in this encounter Plan of Treatment Date Type Specialty Care Team Description 03/24/2020 Office Visit Endocrinology Diabetes & Kirstie Dhaliwal MD Metabolism [address] [place] [address] 05/11/2020 Office Visit Family Medicine Jewell, Wondiful A, MD [address] [place] [address] Name Type Priority Associated Diagnoses Order S chedule URINALYSIS LAB Routine Difficulty urina ting 1 Occurrences starting Leukocytosis, unspecified until 09/21/2020 type URINE CULTURE LAB Routine Difficulty urina ting 1 Occurrences starting Leukocytosis, unspecified until 09/21/2020 type CBC WITH DIFF LAB Routine Difficulty urina ting 1 Occurrences starting Leukocytosis, unspecified until 09/21/2020 type Health Maintenance Due Date Last Done Comments FOOT EXAM 01/14/1970 DTaP,Tdap,and Td Vaccines (1 - Tdap) 01/14/1971 COLON CANCER SCREENING ANNUAL FIT/FOBT 01/14/2002 COLON CANCER SCREENING FIT DNA EVERY 3 01/14/2002 YEARS COLON CANCER SCREENING SIGMOIDOSCOPY EVERY 01/14/2002 5 YEARS COLONOSCOPY 01/14/2002 Colorectal Cancer Screening 01/14/2002 Zoster Recombinant Vaccine (SHINGRIX) (1 01/14/2002 of 2) Medicare Wellness Visit 01/14/2017 Osteoporosis Screening 01/14/2017 HgA1C 07/13/2020 01/11/2020 Depression Screening 01/10/2021 01/11/2020 LDL-C 01/10/2021 01/11/2020 URINE MICROALBUMIN 01/10/2021 01/11/2020 EYE EXAM 02/02/2021 02/03/2020, 02/03/2020 Breast Cancer Screening (MAMMOGRAM) 03/13/2021 03/13/2020 CREATININE (SERUM) 03/21/2021 03/21/2020, 01/11/2020 HEPATITIS C (HCV) SCREEN Completed 01/11/2020 INFLUENZA VACCINE Completed 03/13/2020 PNEUMOCOCCAL VACCINES 65+ Completed 03/21/2020 documented as of this encounter Results Not on filedocumented in this encounter Visit Diagnoses Diagnosis Difficulty urinating - Primary Other symptoms involving urinary system Leukocytosis, unspecified type documented in this encounter Insurance Payer Benefit Plan / Subscriber ID Effective Phone Address T ype Group Dates [facility] [id number] 2019-Prese Me candelario [facility] - MEDICARE nt HMO MANAGED MEDICARE ADVANTAGE documented as of this encounter
--- OUTSIDE RECORDS SUMMARY | 2020-04-13 05:18 | XMS REPORT | Summary of Care ---
:1950 Author Organization [facility] - [facility] Address [address] [place] [id number] Care Team Providers Name Role Phone Mabel Queen MD Primary Care Provider Reason for Visit Reason Comments Surgery Clearance Encounter Details Date Type Department Care Team Description 03/21/[address] [facility] Family Kobi Queen shannan right flank pain (Primary Dx); Albina Monroe MD Preoperative clearance; [address] [place] [address] Female genital prolapse, unspecified typ e; Drive [place], [place] Hydronephrosis, right; [place] [address] Medication monitoring encounter; [id number] Encounter for long-term (current) use of medications; [phone] Need for pneumococcal vaccination Allergies Active Allergy Reactions Severity Noted Date Comments Iodine Hives, Itching, Rash 01/11/2020 Latex Hives, Rash 01/11/2020 Morphine Anaphylaxis 01/11/2020 documented as of this encounter (statuses as of 03/22/2020) Medications Medication Sig Dispensed Refills Start Date [...] as of this encounter (statuses as of 03/22/2020) Active Problems Problem Noted Date Hyperthyroidism 02/17/2020 [...] as of this encounter (statuses as of 03/22/2020) Immunizations Name Administration Dates Next Due Influenza [...] Sign Reading Time Taken Comments Blood Pressure 131/76 03/21/2020 2:54 PM CDT Pulse 86 03/21/2020 2:54 PM CDT Temperature 36.4 C (97.6 F) 03/21/2020 2:54 PM CDT Respiratory Rate - - Oxygen Saturation - - Inhaled Oxygen Concentration - - Weight 97.5 kg (215 lb) 03/21/2020 2:54 PM CDT Height 177.8 cm (5' 10") 03/21/2020 2:54 PM CDT Body Mass Index 30.85 03/21/2020 2:54 PM CDT documented in this encounter Patient Instructions Patient InstructionsVenita Dixon R - 03/21/2020 3:00 PM CDT Patient Education Coronavirus Disease 2019 (COVID-19): Prevention The best prevention is to have no contact with the SARS-CoV-2 virus. There is no vaccine yet. During a pandemic, it's especially important to keep up on recommended vaccines for other illnesses.This is more true if you're at higher risk for severe illness from COVID-19, the flu, or pneumonia. This includes older adults and those who have long-term (chronic) health conditions. Getting a yearlyflu vaccine is advised for everyone 6 months old and older, with rare exceptions. Health experts advise the flu vaccine to protect you and others. The flu vaccine helps protect those at high-risk for serious illness, and lowers the strain on hospitals during the COVID-19 pandemic. Canceling travel and other outings Stay informed [...] as "self isolate, "quarantine," stay at home, and long term in place. The CDC advises that people should not [...] soap and water, use an alcohol-based hand psychologist social often. Make sure it has at least [...] least 6 feet away from all people. This is called "social distancing." When possible, don't touch "high-touch" public surfaces such as doorknobs and handles, cabinet handles, and light switches. If you touch these surfaces, try to clean them first with a disinfecting wipe. Or touch them using a tissue or paper towel. Use an alcohol-based hand psychologist social often. Make sure it has at least 60% alcohol. Don't touch your eyes, nose, or mouth unless you have clean hands. If you need to cough or sneeze, do it into a tissue. Then throw the tissue into the trash. If youdon't have tissues, cough or sneeze into the bend of your elbow. Don't attend public gatherings if possible. If you do attend public gatherings, follow social distancing rules. Don't share food or personal items such as water bottles. The CDC advises wearing a cloth face mask in public. During a public health emergency, medical face masks may be reserved for healthcare workers. You may need to make a cloth face mask of your own. You can do this using a bandana, T- shirt, or other cloth. The CDC has instructions on how to make a mask. Wear the mask so that it covers both your nose and mouth. The CDC advises all people over age 2 to wear cloth face masks in public settings when around people outside of their household, especially when it's hard to socially distance. For example, wear a mask in populated places such as public transit, public protests and marches, and crowded stores, bars, and restaurants. Cloth masks may help prevent people who have COVID-19 form spreading the virus to others. Cloth masks are most likely to reduce COVID-19 spread when masks are widely used by people who are out in the public. Certain people should not wear a face mask. This includes: ? Children younger than 2 years old ? Anyone with a health, developmental, or mental health condition that can be made worse by wearing a mask ? Anyone who is unconscious or unable to remove the face covering without help. See the CDC's guidance on who should not wear a face mask. If you are at a work site If you feel sick in any way, go home and stay home. Tell your property supervisor if you are well but live with someone who has COVID-19. Stay at least 6 feet away from all people. Don't shake hands with anyone. Don't attend in-person meetings, or limit how many you attend. Meet over phone or video if possible. Don't use other people's desks, phones, equipment, or offices, if possible. Wash your hands often. Use soap and clean, running water for at least 20 seconds. If you don't have access to soap and water, use an alcohol-based hand psychologist social often. Make sure it has at least [...] bandana, T- shirt, or other cloth. The CDC has instructions on how to make a mask. Wear the mask so that it covers both your nose and mouth. Follow the CDC's advice listed earlier. When possible, don't touch "high-touch" public surfaces [...] the bend of your elbow. If you have been exposed to a [...] the readings. Watch for symptoms of the virus like cough or trouble breathing. Call your provider if you have symptoms. Call your provider first before going to any clinic or hospital. See the CDC's symptom steel checker. Stay home if you are sick for any reason. Your limits are different if you've had COVID-19 in the last 3 months but are fully recovered without symptoms and you have been exposed to someone with COVID-19. If you are symptom-free, you don't need to quarantine or be retested. The CDC doesn't recommend retesting unless you have symptoms of COVID-19 and your new symptoms can't be linked to another illness. Contact your healthcare provider if you have any questions. If you develop symptoms, stay home. If you had COVID-19 more than 3 months ago and have been exposed again, treat it like you've never had COVID-19 and stay home, limit your contact with others, call your provider, and monitor for symptoms. When to call your healthcare provider Call your healthcare provider if you think you have COVID-19 symptoms. These can include fever, cough, and trouble breathing. They may also include body aches, headache, chills or repeated shaking withchills, sore throat, loss of taste or smell, or diarrhea. Dont go to a healthcare facility beforespeaking to a healthcare provider. Last modified date: 01/24/2020 [employer] last reviewed this educational content on 09/01/[id number] [employer]. All rights reserved. This information is not intended as a substitute for professional medical care. Always follow your healthcare professional's instructions. documented in this encounter Progress Notes Kobi Queen MD - 03/21/2020 3:00 PM CDT CC: Chief Complaint Patient presents with Surgery Clearance HPI Samantha Green is a 70 year old female who presents for surgical clearance. She had an EKG done yesterday that was ordered by her FAN RUNNER. Pre-operative clearance Proposed surgery: Colpocleisis, MUS/cysto & perinorrhaphy. Proposed anesthesia: Spinal anesthesia but the patient feels she also needs some sedation due to her anxiety level. Physician: Dr. Martinez. Surgery date: TBD. Prior surgeries: has a past surgical history that includes eye surgery; left heart cath; nephrectomy (Left); hernia repair; and hysterectomy. Complications with prior surgeries?: None. Personal of family history of adverse reaction to anesthesia?: No, but she did have an anaphylacticreaction to morphine. Symptoms of infection currently?: No. Pertinent chronic conditions: DM2, HTN, anxiety, hyperthyroidism. On anticoagulation or ASA?: No. Allergies Allergen Reactions Iodine Hives, Itching and Rash Latex Hives and Rash Morphine Anaphylaxis Current Outpatient Medications: ESTRADIOL VAGINAL, Insert 0.01 % into vagina. Uses 3 x per week, Disp: , Rfl: OMEPRAZOLE MAGNESIUM ORAL, Take 40 mg by mouth daily., Disp: , Rfl: amLODIPine 10 mg tablet, Take 1 tablet by mouth daily. DOSE INCREASE., Disp: 30 tablet, Rfl: 5 citalopram 10 mg tablet, Take 1 tablet by mouth daily., Disp: 30 tablet, Rfl: 2 dicyclomine 10 mg capsule, Take 1 capsule by mouth 4 (four) times daily as needed for Abdominalpain., Disp: 30 capsule, Rfl: 0 Past Medical History: Diagnosis Date Anxiety 02/11/2020 Dilated bile duct 02/17/2020 Essential hypertension Fatty liver 02/17/2020 Fibromyalgia History of kidney cancer 01/11/2020 Hyperthyroidism 02/17/2020 Liver lesion 02/17/2020 Panniculitis 02/11/2020 Type 2 diabetes mellitus, without long-term current use of insulin 01/11/2020 Past Surgical History: Procedure Laterality Date EYE SURGERY cataract surgery HERNIA REPAIR HYSTERECTOMY LEFT HEART CATH NEPHRECTOMY Left Family History [...] file Gets together: Not on file Attends taoism service: Not on file Active member of [...] on file Review of Systems Constitutional: Negative. HENT: Negative. Eyes: Negative. Respiratory: Negative. Cardiovascular: Negative. Gastrointestinal: Negative. Genitourinary: Positive for flank pain. Musculoskeletal: Positive for arthralgias. Skin: Negative. Neurological: Negative. Psychiatric/Behavioral: The patient is nervous/anxious. Endocrine: Endocrine negative Vital signs BP 131/76 | Pulse 86 | Temp 36.4 C (97.6 F) (Tympanic) | Ht 5' 10" (1.778 m) | Wt 215 lb (97.5 kg) | BMI 30.85 kg/m Physical Exam Vitals signs and nursing note reviewed. Constitutional: General: She is not in acute distress. Appearance: She is well-developed. HENT: Head: Normocephalic. Eyes: General: No scleral icterus. Conjunctiva/sclera: Conjunctivae normal. Pupils: Pupils are equal, round, and reactive to light. Neck: Musculoskeletal: Neck supple. Thyroid: No thyromegaly. Vascular: No carotid bruit. Cardiovascular: Rate and Rhythm: Normal rate and regular rhythm. Heart sounds: Normal heart sounds. No murmur. No friction rub. No gallop. Pulmonary: Effort: Pulmonary effort is normal. Breath sounds: Normal breath sounds. No wheezing, rhonchi or rales. Abdominal: General: Bowel sounds are normal. There is no distension. Palpations: Abdomen is soft. There is no mass. Tenderness: There is no abdominal tenderness. There is right CVA tenderness. There is no left CVAtenderness. Musculoskeletal: Right lower leg: No edema. Left lower leg: No edema. Lymphadenopathy: Cervical: No cervical adenopathy. Skin: General: Skin is warm and dry. Coloration: Skin is not jaundiced or pale. Findings: No rash. Neurological: General: No focal deficit present. Mental Status: She is alert and oriented to person, place, and time. Psychiatric: Attention and Perception: Attention and perception normal. Mood and Affect: Mood is anxious. Speech: Speech normal. Behavior: Behavior normal. Thought Content: Thought content normal. Cognition and Memory: Cognition and memory normal. Judgment: Judgment normal. LABS: CBC CMP WBC (10*3/L) Date Value 03/21/2020 14.82 (H) NA (mmol/L) Date Value 03/21/2020 139 RBC (10*6/L) Date Value 03/21/2020 4.26 K (mmol/L) Date Value 03/21/2020 4.3 PLT (10*3/L) Date Value 03/21/2020 347 CALCIUM (mg/dL) Date Value 03/21/2020 9.8 HGB (g/dL) Date Value 03/21/2020 12.5 CL (mmol/L) Date Value 03/21/2020 100 HCT (%) Date Value 03/21/2020 36.9 BUN (mg/dL) Date Value 03/21/2020 19 LIPID PANEL CREATININE (mg/dL) Date Value 03/21/2020 1.07 (H) CHOL (mg/dL) Date Value 01/11/2020 182 GLUCOSE (mg/dL) Date Value 03/21/2020 106 LDL CHOL (mg/dL) Date Value 01/11/2020 94 CO2 TOTAL (mmol/L) Date Value 03/21/2020 27 HDL (mg/dL) Date Value 01/11/2020 39 (L) ALBUMIN Date Value Ref Range Status 01/11/2020 4.4 3.5 - 5.0 g/dL Final TRIG (mg/dL) Date Value 01/11/2020 245 (H) T PROTEIN Date Value Ref Range Status 01/11/2020 7.6 6.3 - 8.2 g/dL Final TSH TOTAL BILI Date Value Ref Range Status 01/11/2020 0.7 0.1 - 1.1 mg/dL Final TSH (mIU/L) Date Value 02/10/2020 0.03 (L) No components found for: BILIUNCOM No results found for: BILICONJ ALTv Date Value Ref Range Status 01/11/2020 62 (H) 5 - 35 U/L Final AST(SGOT) Date Value Ref Range Status 01/11/2020 56 (H) 13 - 40 U/L Final ALK PHOS Date Value Ref Range Status 01/11/2020 102 34 - 122 U/L Final EKG 03/20/2020: Rate 75, NSR, normal intervals, normal axis, no blocks, no hypertrophy, no pathologic Qs, no acute ST-T abnl, no EKG for comparison ASSESSMENT/PLAN Samantha was seen today for surgery clearance. Diagnoses and all orders for this visit: ICD-10-CM ICD-9-CM 1. Preoperative clearance Z01.818 V72.84 2. Female genital prolapse, unspecified type N81.9 618.9 3. Hydronephrosis, right N13.30 591 4. Medication monitoring encounter Z51.81 V58.83 5. Encounter for long-term (current) use of medications Z79.899 V58.69 6. Chronic right flank pain R10.9 789.09 G89.29 338.29 7. Need for pneumococcal vaccination Z23 V03.82 Moderate risk surgery, low-risk patient. Her EKG is WNL. A pre-operative lab evaluation has been ordered. I will clear the patient for the proposed procedure/surgery if the findings of the pre-operative diagnostic studies are acceptable. She received a pneumococcal vaccine today for health maintenance. Orders: - CBC WITH DIFF; Standing - PROTHROMBIN TIME / INR; Standing - ACTIVATED PARTIAL THRMPLAS ASHWIN; Standing - BASIC METABOLIC PANEL (NA, K, CL, CO2, GLUCOSE, BUN, CREATININE, CA); Standing - PNEUMOCOCCAL VACCINE, 23-VALENT (PNEUMOVAX) Plan of care, desired health behaviors, goals, [...] [facility] database was accessed to review any controlled substance prescription claims data. If the patient is taking prescribed medications, the [employer] prescription claims data in [employer] was reviewed to assess patient compliance with the medication treatment plan. COVID-19 precautions given including frequent handwashing, social distancing, cleaning and disinfecting, indications for testing, etc. Follow-up: Return as scheduled. Follow-up sooner if any problems or concerns. Scribe Attestation I, Venita Silvaoyo , am scribing for, and in the presence of, Kobi Queen MD who performed the services described here-in. Venita Dixon, March 21, 2020, 2:49 PM Physician Attestation I, Kobi Queen MD, personally performed the services described in this documentation , as scribed by, Venita Dixon in my presence and it is both accurate and complete. Kobi Queen MD March 21, 2020, 2:49 PM documented in this encounter Plan of Treatment Date Type Specialty Care Team Description 03/24/2020 Office Visit Endocrinology Diabetes & Kirstie Dhaliwal MD [address] [address] [phone] 05/11/2020 Office Visit Family Medicine Kobi Queen MD [address] [place] [id number] Health Maintenance Due Date Last Done Comments [...] Completed 03/21/2020 documented as of this encounter Procedures Procedure Name Priority Date/Time Associated Diagnosis Comme nts PNEUMOCOCCAL VACCINE, Routine 03/21/2020 3:24 PM Need for pne umococcal 23-VALENT (PNEUMOVAX) CDT vaccination documented in this encounter Results BASIC METABOLIC PANEL (NA, K, CL, CO2, GLUCOSE, BUN, CREATININE, CA) (03/21/2020 3:33 PM CDT) NA 139 135 - 145 [facility] mmol/L [facility] K 4.3 3.5 - 5.0 [facility] mmol/L [facility] CL 100 98 - 108 mmol/L [facility] CO2 TOTAL 27 23 - 31 mmol/L [facility] AGAP 12 2 - 16 [facility] BUN 19 7 - 23 mg/dL [facility] GLUCOSE 106 70 - 110 mg/dL [facility] CREATININE 1.07 (H) 0.50 - 1.04 [facility] mg/dL [facility] CALCIUM 9.8 8.6 - 10.6 [facility] mg/dL [facility] eGFR Calculation 51.0 mL/min/1.73m2 [facility] ([facility]ORATORY Ghanaian) eGFR Calculation 61.8 mL/min/1.73m2 [facility] () [facility] Specimen Blood Narrative Performed At Association of Glomerular Filtration Rate (GFR) [facility] and Staging of Kidney Disease* [...] tests). Performing Organization Address City/State/Zipcode Phone Number [facility] CLIA: [id number] [place] [address] ACTIVATED PARTIAL THRMPLAS ASHWIN (03/21/2020 3:33 PM CDT) Pathologist Sig nature APTT Patient 27 23 - 38 Seconds [facility] Specimen Blood Narrative Performed At The [facility] patient population mean normal value [facility] for aPTT is 30 seconds. Performing Organization Address City/[facility]/Zipcode Phone Number [facility] CLIA: [id number] [place] [address] [facility] PROTHROMBIN TIME / INR (03/21/2020 3:33 PM CDT) [facility] Signature PROTIME PATIENT 12.1 12.0 - 14.7 [facility] Seconds [facility] INR 0.9Comment: Normal [facility] INR <1.1; Warfarin [facility] Therapeutic range LABORATORY 2.0 to 3.0 or 2.5 to 3.5, depending upon the indications. Specimen Blood Performing Organization Address [facility] Phone Number [facility] CLIA: [id number] [place] [address] [facility] CBC WITH DIFF (03/21/2020 3:33 PM CDT) [facility] nature WBC 14.82 (H) 4.30 - 11.10 [facility] 10*3/L [facility] RBC 4.26 3.93 - 5.25 [facility] 10*6/L [facility] HGB 12.5 11.6 - 15.0 [facility] g/dL [facility] HCT 36.9 35.7 - 45.2 % [facility] MCV 86.6 80.6 - 95.5 fL [facility] MCH 29.3 25.9 - 32.8 pg [facility] MCHC 33.9 31.6 - 35.1 [facility] g/dL [facility] RDW-SD 38.5 (L) 39.0 - 49.9 fL [facility] RDW-CV 12.2 12.0 - 15.5 % [facility] PLT 347 166 - 358 [facility] 10*3/L [facility] MPV 9.7 9.5 - 12.9 fL [facility] NRBC/100 WBC 0.0 0.0 - 10.0 /100 [facility] WBCs [facility] NRBC x10^3 <0.01 10*3/L [facility] GRAN MAT (NEUT) % 69.7 % [facility] IMM GRAN % 0.40 % [facility] LYMPH % 21.9 % [facility] MONO % 5.8 % [facility] EOS % 1.7 % [facility] BASO % 0.5 % [facility] GRAN MAT x10^3(ANC) 10.33 (H) 1.88 - 7.09 [facility] 10*3/uL [facility] IMM GRAN x10^3 0.06 0.00 - 0.06 [facility] 10*3/uL [facility] LYMPH x10^3 3.24 1.32 - 3.29 [facility] 10*3/uL [facility] MONO x10^3 0.86 0.33 - 0.92 [facility] 10*3/uL [facility] EOS x10^3 0.25 0.03 - 0.39 [facility] 10*3/uL [facility] BASO x10^3 0.08 (H) 0.01 - 0.07 [facility] 10*3/uL [facility] Specimen Blood Performing Organization Address City/State/Zipcode Phone Number [facility] CLIA: [id number] [place] [address] documented in this encounter Visit Diagnoses Diagnosis Chronic right flank pain - Primary Abdominal pain, unspecified site Preoperative clearance Preoperative examination, unspecified Female genital prolapse, unspecified typ e Hydronephrosis, right Hydronephrosis Medication monitoring encounter Encounter for therapeutic drug monitorin g Encounter for long-term (current) use of medications Encounter for long-term (current) use of other medications Need for pneumococcal vaccination Need for prophylactic vaccination agains t streptococcus pneumoniae (pneumococcus) documented in this encounter Insurance Payer Benefit Plan / Subscriber ID Effective Phone Address T ype Group Dates [facility] [id number] 2019-[facility] - MEDICARE nt HMO MANAGED MEDICARE [place] [phone] documented as of this encounter
--- OUTSIDE RECORDS SUMMARY | 2020-04-13 05:18 | XMS REPORT | Summary of Care ---
:1950 Author Organization [facility] - [facility] Address [address] [place] [address] Care Team Providers Name Role Phone Mabel Queen MD Primary Care Provider Reason for Visit Reason Comments LAB WORK Encounter Details Date Type Department Care Team Description 03/21/2020 Mop Maker Visit [facility] Family Jasbir Queen MD [address] [place] [address] [place] [phone] Preoperative clearance; [facility], Adc Fam Pob I Female genital prolapse, unspecified typ e; [address] [place] [address] Hydronephr osis, right; Drive Medication monitoring encoun ter; [place], [place] Encounter for l shruthi-term (current) use of medications [id number] Allergies Active Allergy Reactions Severity Noted Date Comments Iodine Hives, Itching, Rash 01/11/2020 Latex Hives, Rash 01/11/2020 Morphine Anaphylaxis 01/11/2020 documented as of this encounter (statuses as of 03/21/2020) Medications Medication Sig Dispensed Refills Start Date [...] as of this encounter (statuses as of 03/21/2020) Active Problems Problem Noted Date Hyperthyroidism 02/17/2020 [...] as of this encounter (statuses as of 03/21/2020) Immunizations Name Administration Dates Next Due Influenza [...] on filedocumented in this encounter Nursing Notes Sarah Sneed - 03/21/2020 3:40 PM CDT Venipuncture collection performed by clean technique on the left forearm(s). Total of 1 attempts were made. Slight pressure and a bandage/dressing were applied to the site(s). The patient experienced no complications. The following specimens were processed according to instructions and sent to [facility] laboratories per lab order on 03/21/20: 1 LT BLUE 1 SST RED 1 LAV PPT DK GREEN (LiHep) DK GREEN (SodH) REID DK BLUE (K2) DK BLUE (S) ACD Blood Culture NIPT/NTD documented in this encounter Plan of Treatment Date Type Specialty Care Team Description 03/24/2020 Office Visit Endocrinology Diabetes & SimonsiKirstie riley MD [address] [place] [address] [phone] 05/11/2020 Office Visit Family Medicine Kobi Queen MD [address] [place] [phone] Health Maintenance Due Date Last Done [...] filedocumented in this encounter Visit Diagnoses Diagnosis Preoperative clearance Preoperative examination, unspecified Female genital prolapse, unspecified typ e Hydronephrosis, right Hydronephrosis Medication monitoring encounter Encounter for therapeutic drug monitorin g Encounter for long-term (current) use of medications Encounter for long-term (current) use of other medications documented in this encounter Insurance Payer Benefit Plan / Subscriber ID Effective Phone Address T e Group Dates [facility] [id number] 2019-Ruddy candelario [facility] - MEDICARE HMO MANAGED MEDICARE AD[place] [id number] documented as of this encounter
--- OUTSIDE RECORDS SUMMARY | 2020-04-13 05:18 | XMS REPORT | Summary of Care ---
:1950 Author Organization [facility] - [facility] Address [address] [place] [address] Care Team Providers Name Role Phone Mabel Queen MD Primary Care Provider Reason for Visit Reason Comments Surgery Clearance Encounter Details Date Type Department Care Team Description 03/21/2020 Office Visit [facility] Family Kobi Queen shannan right flank pain (Primary Dx); Albina Monroe MD Preoperative clearance; [address] [place] [address] Female genital prolapse, unspecified typ e; Drive [place], [place] Hydronephrosis, right; [place] [address] Medication monitoring encounter; [phone] Encounter for long-term (current) use of medications; [phone] Need for pneumococcal vaccination Allergies Active Allergy [...] "self isolate, "quarantine," stay at home, and residential in place. The CDC advises that people [...] soap and water, use an alcohol-based hand network internship often. Make sure it has at least [...] or paper towel. Use an alcohol-based hand network internship often. Make sure it has at least [...] go home and stay home. Tell your supervisor particleboard if you are well but live with [...] soap and water, use an alcohol-based hand network internship often. Make sure it has at least [...] clinic or hospital. See the CDC's symptom tool drawing checker. Stay home if you are sick [...] a healthcare provider. Last modified date: 01/24/2020 [employer] last reviewed this educational content on 09/01/201919991296-8672 [employer]. All rights reserved. This information is not [...] done yesterday that was ordered by her WEALTH MANAGEMENT DIRECTOR. Pre-operative clearance Proposed surgery: Colpocleisis, MUS/cysto & [...] file Gets together: Not on file Attends orthodoxy service: Not on file Active member of [...] at a future visit. If applicable, the [facility] database was accessed to review any controlled substance prescription claims data. If the patient is taking prescribed medications, the [employer] prescription claims data in [employer] was reviewed to assess patient compliance with [...] Visit Endocrinology Diabetes & Kirstie Dhaliwal MD [address] [address] [phone] 05/11/2020 Office Visit Family Medicine Kobi Queen MD [address] [place] [phone] Health Maintenance Due Date Last Done [...] PM CDT) NA 139 135 - 145 [facility] mmol/L [facility] K 4.3 3.5 - 5.0 [facility] mmol/L [facility] CL 100 98 - 108 mmol/L [facility] CO2 TOTAL 27 23 - 31 mmol/L [facility] AGAP 12 2 - 16 [facility] BUN 19 7 - 23 mg/dL [facility] GLUCOSE 106 70 - 110 mg/dL [facility] CREATININE 1.07 (H) 0.50 - 1.04 [facility] mg/dL [facility] CALCIUM 9.8 8.6 - 10.6 [facility] mg/dL [facility] eGFR Calculation 51.0 mL/min/1.73m2 [facility] (Non-[facility] LABORATORY Indonesian) eGFR Calculation 61.8 mL/min/1.73m2 [facility] () [facility] Specimen Blood Narrative Performed At [facility] Glomerular Filtration Rate (GFR) [facility] LAB[facility] and Staging of Kidney Disease* + [...] tests). Performing Organization Address City/State/Zipcode Phone Number [facility] CLIA: [id number] [place] [address] ACTIVATED PARTIAL THRMPLAS ASHWIN (03/21/2020 3:33 PM CDT) Pathologist Sig nature APTT Patient 27 23 - 38 Seconds [facility] Specimen Blood Narrative Performed At The [facility] patient population mean normal value [facility] for aPTT is 30 seconds. Performing Organization Address City/[facility]/Zipcode Phone Number [facility] CLIA: [id number] [place] [address] LABORATORY [address] [facility] PROTHROMBIN TIME / INR (03/21/2020 3:33 PM CDT) [facility] Signature PROTIME PATIENT 12.1 12.0 - 14.7 [facility] Seconds [facility] INR 0.9Comment: Normal [facility] INR <1.1; Warfarin [facility] Therapeutic range LABORATORY 2.0 to 3.0 or 2.5 to 3.5, depending upon the indications. Specimen Blood Performing Organization Address [facility] Facility[facility] Phone Number [facility] CLIA: [id number] [place] [address] LABORATORY [address] [facility] CBC WITH DIFF (03/21/2020 3:33 PM CDT) [facility] nature WBC 14.82 (H) 4.30 - 11.10 [facility] 10*3/L [facility] RBC 4.26 3.93 - 5.25 [facility] 10*6/L [facility] HGB 12.5 11.6 - 15.0 [facility] g/dL [facility] HCT 36.9 35.7 - 45.2 % [facility] MCV 86.6 80.6 - 95.5 fL [facility] MCH 29.3 25.9 - 32.8 pg [facility] MCHC 33.9 31.6 - 35.1 [facility] g/dL [facility] RDW-SD 38.5 (L) 39.0 - 49.9 fL [facility] RDW-CV 12.2 12.0 - 15.5 % [facility] PLT 347 166 - 358 [facility] 10*3/L [facility] MPV 9.7 9.5 - 12.9 fL [facility] NRBC/100 WBC 0.0 0.0 - 10.0 /100 [facility] WBCs [facility] NRBC x10^3 <0.01 10*3/L [facility] GRAN MAT (NEUT) % 69.7 % [facility] IMM GRAN % 0.40 % [facility] LYMPH % 21.9 % [facility] MONO % 5.8 % [facility] EOS % 1.7 % [facility] BASO % 0.5 % [facility] GRAN MAT x10^3(ANC) 10.33 (H) 1.88 - 7.09 [facility] 10*3/uL [facility] IMM GRAN x10^3 0.06 0.00 - 0.06 [facility] 10*3/uL [facility] LYMPH x10^3 3.24 1.32 - 3.29 [facility] 10*3/uL [facility] MONO x10^3 0.86 0.33 - 0.92 [facility] 10*3/uL [facility] EOS x10^3 0.25 0.03 - 0.39 [facility] 10*3/uL [facility] BASO x10^3 0.08 (H) 0.01 - 0.07 [facility] 10*3/uL [facility] Specimen Blood Performing Organization Address City/State/Zipcode Phone Number [facility] CLIA: [id number] [place] [address] documented in this [...] Effective Phone Address T ype Group Dates [facility] [id number] 2019-Ruddy Bowens HEALTHCARE - MEDICARE nt HMO MANAGED MEDICARE ADVANTAGE [place] [address] documented as of this encounter
--- OUTSIDE RECORDS SUMMARY | 2020-04-13 05:19 | XMS REPORT | Summary of Care ---
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 [address] [address] Difficulty urinating; [facility] Lab, Adc Fam Pob I Leukocytosis, unspecified type 136 [place] [address] Allergies Active Allergy Reactions Severity Noted Date Comments Iodine Hives, Itching, Rash 01/11/2020 Latex Hives, Rash 01/11/2020 Morphine Anaphylaxis 01/11/2020 documented as of this encounter (statuses as of 03/24/2020) Medications Medication Sig Dispensed Refills Start Date [...] as of this encounter (statuses as of 03/24/2020) Active Problems Problem Noted Date Hyperthyroidism 02/17/2020 [...] as of this encounter (statuses as of 03/24/2020) Immunizations Name Administration Dates Next Due Influenza [...] been in contact with No / Unsure 03/24/2020 10:23 AM CDT someone who was confirmed or 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 documented as of this encounter Last Filed Vital Signs Not on filedocumented in this encounter Nursing Notes Allyson Monroe - 03/24/2020 11:00 AM CDT Patient has been identified by and name and was provided with cup, antiseptic towelette, and clean catch instructions. 2 urine specimen(s) sent. Unpreserved 1 Urine Culture 1 Aptima tube Other urine documented in this encounter Plan of Treatment Date Type Specialty Care Team Description 03/24/2020 Office Visit Endocrinology Diabetes & Simonsired Kirstie gee MD [address] [place] [address] [phone] 05/11/2020 Office Visit Family Medicine Kobi Queen MD [address] [place] [phone] Health Maintenance Due Date Last Done [...] this encounter Visit Diagnoses Diagnosis Difficulty urinating Other symptoms involving urinary system Leukocytosis, unspecified type documented in this encounter Insurance Payer Benefit Plan / Subscriber ID Effective Phone Address T ype Group Dates [facility] [id number] 2019-Ruddy candelario Adv HEALTHCARE - MEDICARE nt HMO MANAGED MEDICARE ADVANTAGE documented as of this encounter
--- OUTSIDE RECORDS SUMMARY | 2020-04-13 05:19 | XMS REPORT | Summary of Care ---
:1950 Author Organization [facility] - [facility] Address [address] [place] [address] Care Team Providers Name Role Phone Mabel Queen MD Primary Care Provider Reason for Visit Reason Comments UTI possible Encounter Details Date Type Department Care Team Description 03/24/2020 Case Management [facility] Family Kobi uQeen , UTI (possible) Medicine - Eduar CARRERO [address] [place] [address] Dr moreland [address] [place] [address] [place] [address] [place], [place] [phone] Allergies Active Allergy Reactions Severity Noted Date [...] daily. Anxiety ESTRADIOL VAGINAL Insert 0.01 % 0 Active into vagina. Uses 3 x per week OMEPRAZOLE MAGNESIUM Take 40 mg by 0 Active ORAL mouth daily. cefadroxil 500 mg Take 1 capsule by 14 capsule 0 03/24/2020 Active capsuleIndications: mouth 2 (two) Abnormal urinalysis times daily for 7 days. documented as of this encounter (statuses as [...] Description 03/24/2020 Office Visit Endocrinology Diabetes & Kesired Kirstie gee MD Metabolism [address] [place] [address] [phone] 05/11/2020 Office Visit Family Medicine Kobi Queen MD [address] [place] [phone] Health Maintenance Due Date Last Done Comments [...] in this encounter Visit Diagnoses Diagnosis Abnormal urinalysis - Primary Other nonspecific finding on examination of urine documented in this encounter Insurance Payer Benefit Plan / Subscriber ID Effective Phone Address T ype Group Dates [place] [id number] 2019-Ruddy Bowens HEALTHCARE - MEDICARE nt O MANAGED MEDICARE ADVANTAGE documented as of this encounter
--- OUTSIDE RECORDS SUMMARY | 2020-04-13 05:19 | XMS REPORT | Summary of Care ---
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 [address] [address] Difficulty urinating; [facility] Lab, Adc Fam Pob I Leukocytosis, unspecified type [address] [place] [address] Allergies Active Allergy Reactions Severity [...] Description 03/24/2020 Office Visit Endocrinology Diabetes & Kesiflor dy, MD Kirstie Metabolism [address] [place] [address] [phone] 05/11/2020 Office Visit Family Medicine Kobi Queen MD [address] [place] [phone] Health Maintenance Due Date Last Done Comments [...] Phone Address T ype Group Dates [facility] [id number] 2019-Prese dicare Adv HEALTHCARE - MEDICARE nt HMO MANAGED MEDICARE ADVANTAGE documented as of this encounter
--- OUTSIDE RECORDS SUMMARY | 2020-04-13 05:19 | XMS REPORT | Summary of Care ---
:1950 Author Organization [facility] - [facility] Address [address] [place] [address] Care Team Providers Name Role Phone Mabel Queen MD Primary Care Provider Reason for Visit Reason Comments LAB WORK Encounter Details Date Type Department Care Team Description 03/21/2020 Rn Complex Care Visit [facility] Family Jasbir Queen MD [address] [place] [address] [place] [address] Preoperative clearance; [facility] Lab, Adc Fam Pob I Female genital prolapse, unspecified typ e; [address] [place] [address] Hydronephr osis, right; Drive Medication monitoring encoun ter; [place], [place] Encounter for l shruthi-term (current) use of medications; [address] Hyperthyroidism; [phone] Multiple thyroi d nodules Allergies Active Allergy Reactions Severity Noted Date [...] processed according to instructions and sent to [facility] laboratories per lab order on 03/21/20: 1 LT BLUE 1 SST RED 1 LAV PPT DK GREEN (LiHep) DK GREEN (SodH) REID DK BLUE (K2) DK BLUE (S) ACD Blood Culture NIPT/NTD documented in this encounter Plan of Treatment Date Type Specialty Care Team Description 05/11/2020 Office Visit Family Medicine Kobi Queen MD [address] [place] [phone] 06/26/2020 Office Visit Endocrinology Diabetes & Simonsired Kirstie gee MD Metabolism [facility] [place] [address] [phone] Name Type Priority Associated Diagnoses Date/Ti me TRIIODOTHYRONINE LAB Routine Hyperthyroidism 03/24/2020 4:44 PM CDT Multiple thyroid nodules Health Maintenance Due Date Last Done Comments [...] Name Priority Date/Time Associated Diagnosis Comme nts ACTIVATED PARTIAL Routine 03/21/2020 3:33 Preoperative Result s for this THRMPLAS ASHWIN PM CDT clearance procedure are in Female genital the results prolapse, unspecified sectio n. type Hydronephrosis, right Medication monitoring encounter Encounter for long-term (current) use of medications PROTHROMBIN TIME / Routine 03/21/2020 3:33 Preoperative Resul ts for this INR PM CDT clearance procedure are in Female genital the results prolapse, unspecified sectio n. type Hydronephrosis, right Medication monitoring encounter Encounter for long-term (current) use of medications CBC WITH DIFF Routine 03/21/2020 3:33 Preoperative Results fo r this PM CDT clearance procedure are in Female genital the results prolapse, unspecified sectio n. type Hydronephrosis, right Medication monitoring encounter Encounter for long-term (current) use of medications BASIC METABOLIC Routine 03/21/2020 3:33 Preoperative Results for this PANEL (NA, K, CL, PM CDT clearance procedure are in CO2, GLUCOSE, BUN, Female genital the res ults CREATININE, CA) prolapse, unspecified sec tion. type Hydronephrosis, right Medication monitoring encounter Encounter for long-term (current) use of medications documented in this encounter Results BASIC METABOLIC PANEL (NA, K, CL, CO2, GLUCOSE, BUN, CREATININE, CA) (03/21/2020 3:33 PM CDT) NA 139 135 - 145 [facility] mmol/L HOSPITAL LABORATORY K 4.3 3.5 - 5.0 [facility] mmol/L HOSPITAL LABORATORY CL 100 98 - 108 mmol/L [facility] CO2 TOTAL 27 23 - 31 mmol/L [facility] AGAP 12 2 - 16 [facility] BUN 19 7 - 23 mg/dL [facility] GLUCOSE 106 70 - 110 mg/dL [facility] CREATININE 1.07 (H) 0.50 - 1.04 [facility] mg/dL [facility] CALCIUM 9.8 8.6 - 10.6 [facility] mg/dL [facility] LABORATORY eGFR Calculation 51.0 mL/min/1.73m2 [facility] ([facility] LABORATORY South Korean) eGFR Calculation 61.8 mL/min/1.73m2 [facility] () [facility] LABORATORY Specimen Blood Narrative Performed At [facility] Glomerular Filtration Rate (GFR) [facility] LABORATORY and Staging of Kidney Disease* + [...] abnormalities in imaging tests). Performing Organization Address City/[facility] Phone Number [facility] CLIA: [id number] [place], [place] [address] LABORATORY [address] ACTIVATED PARTIAL THRMPLAS ASHWIN (03/21/2020 3:33 PM CDT) [facility] nature APTT Patient 27 23 - 38 Seconds [facility] LABORATORY Specimen Blood Narrative Performed At The [facility] patient population mean normal value [facility] LABORATORY for aPTT is 30 seconds. Performing Organization Address [facility]/Zipcode Phone Number [facility] CLIA: [id number] [place], [place] [id number] LABORATORY [address] PROTHROMBIN TIME / INR (03/21/2020 3:33 PM CDT) [facility] PROTIME PATIENT 12.1 12.0 - 14.7 [facility] LABORATORY INR 0.9Comment: Normal [facility] INR <1.1; Warfarin HOSPITAL Therapeutic range LABORATORY 2.0 to 3.0 or 2.5 to 3.5, depending upon the indications. Specimen Blood Performing Organization Address City/State/Zipcode Phone Number [facility] CLIA: [id number] [place] [address] CBC WITH DIFF (03/21/2020 3:33 PM CDT) Pathologist Sig nature WBC 14.82 (H) 4.30 - 11.10 [facility] 10*3/L [facility] LABORATORY RBC 4.26 3.93 - 5.25 [facility] 10*6/L [facility] HGB 12.5 11.6 - 15.0 [facility] g/dL [facility] HCT 36.9 35.7 - 45.2 % [facility] LABORATORY MCV 86.6 80.6 - 95.5 fL [facility] LABORATORY MCH 29.3 25.9 - 32.8 pg [facility] LABORATORY MCHC 33.9 31.6 - 35.1 [facility] g/dL [facility] RDW-SD 38.5 (L) 39.0 - 49.9 fL [facility] LABORATORY RDW-CV 12.2 12.0 - 15.5 % [facility] LABORATORY PLT 347 166 - 358 [facility] 10*3/L [facility] LABOR[facility] MPV 9.7 9.5 - 12.9 fL [facility] LABORATORY NRBC/100 WBC 0.0 0.0 - 10.0 /100 [facility] WBCs [facility] LABORATORY NRBC x10^3 <0.01 10*3/L [facility] LABORATORY GRAN MAT (NEUT) % 69.7 % [facility] LABORATORY IMM GRAN % 0.40 % [facility] LABORATORY LYMPH % 21.9 % [facility] LABORATORY MONO % 5.8 % [facility] LABORATORY EOS % 1.7 % [facility] LABORATORY BASO % 0.5 % [facility] LABORATORY GRAN MAT x10^3(ANC) 10.33 (H) 1.88 - 7.09 [facility] 10*3/uL [facility] LABORATORY IMM GRAN x10^3 0.06 0.00 - 0.06 [facility] 10*3/uL HOSPITAL LABORATORY LYMPH x10^3 3.24 1.32 - 3.29 [facility] 10*3/uL HOSPITAL LABORATORY MONO x10^3 0.86 0.33 - 0.92 [facility] 10*3/uL [facility] LABORATORY EOS x10^3 0.25 0.03 - 0.39 [facility] 10*3/uL [facility] LABORATORY BASO x10^3 0.08 (H) 0.01 - 0.07 [facility] 10*3/uL [facility] LABORATORY Specimen Blood Performing Organization Address City/State/Zipcode Phone Number [facility] CLIA: [id number] [place] [address] documented in this encounter Visit Diagnoses Diagnosis Preoperative clearance Preoperative examination, unspecified Female genital prolapse, unspecified typ e Hydronephrosis, right Hydronephrosis Medication monitoring encounter Encounter for therapeutic drug monitorin g Encounter for long-term (current) use of medications Encounter for long-term (current) use of other medications Hyperthyroidism Thyrotoxicosis without mention of goiter or other cause, without mention of thyrotoxic crisis or storm Multiple thyroid nodules Nontoxic multinodular goiter documented in this encounter Insurance Payer Benefit Plan / Subscriber ID Effective Phone Address T ype Group [facility] [id number] 2019-Ruddy candelario [facility]AGE documented as of this encounter"
--- OUTSIDE RECORDS SUMMARY | 2020-04-13 05:20 | XMS REPORT | Summary of Care ---
:1950 Author Organization [facility] - [facility] Address [address] [place] [address] Care Team Providers Name Role Phone Mabel Queen MD Primary Care Provider Reason for Visit Reason Comments UTI possible Encounter Details Date Type Department Care Team Description 03/24/[address] [facility] Family Kobi Queen , UTI (possible) Medicine - Eduar CARRERO [address] [place] [address] Dr moreland [address] [place] [address] [place] [address] [place], [place] [phone] Allergies Active Allergy Reactions Severity Noted Date Comments Iodine Hives, Itching, Rash 01/11/2020 Latex Hives, Rash 01/11/2020 Morphine Anaphylaxis 01/11/2020 documented as of this encounter (statuses as of 03/26/2020) Medications Medication Sig Dispensed Refills Start Date [...] as of this encounter (statuses as of 03/26/2020) Active Problems Problem Noted Date Hyperthyroidism 02/17/2020 [...] as of this encounter (statuses as of 03/26/2020) Immunizations Name Administration Dates Next Due Influenza [...] Office Visit Family Medicine Kobi Queen MD [address] [place] [phone] 06/26/2020 Office Visit Endocrinology Diabetes & Kesired dyKirstie MD Metabolism [address] [place] [address] [phone] Health Maintenance Due Date Last Done Comments [...] Address T ype Group Dates [place] [id number] 2019-Ruddy Bowens HEALTHCARE - MEDICARE nt HMO MANAGED MEDICARE ADVANTAGE documented as of this encounter
--- OUTSIDE RECORDS SUMMARY | 2020-04-13 05:20 | XMS REPORT | Summary of Care ---
:1950 Author Organization [facility] Address [address] [place] [address] Care Team Providers Name Role Phone Mabel Queen MD Primary Care Provider Reason for Visit Reason Comments Letters Encounter Details Date Type Department Care Team Description 03/26/2020 Case Management [facility] Family Kobi Queen , [facility] - Eduar CARRERO [address] [place] [address] Dr [address]land [address] [place] [address] [place] [address] [place] [phone] Allergies Active Allergy Reactions Severity Noted Date [...] Office Visit Family Medicine Kobi Queen MD [address] [place] [phone] 06/26/2020 Office Visit Endocrinology Diabetes & [place] Kirstie gee MD Metabolism [address] [place] [address] [phone] Health Maintenance Due Date Last Done Comments [...] Phone Address T ype Group Dates [employer] [place] [id number] 2019-Ruddy [facility] - MEDICARE nt HMO MANAGED MEDICARE ADVANTAGE documented as of this encounter
--- OUTSIDE RECORDS SUMMARY | 2020-04-13 05:21 | XMS REPORT | Summary of Care ---
:1950 Author Organization [facility] Address [address] [place] [address] Care Team Providers Name Role Phone Mabel Queen MD Primary Care Provider Reason for Referral Radiology Services (STAT) Status Reason Specialty Diagnoses / Referred By Referred To Procedures Contact Contact Closed Diagnostic Diagnoses Pain of toe of left foot Lorraine Meeks FNP Radiology Procedures XR FOOT 3+ VW LEFT [address] [place] [address] Reason for Visit Auth/Cert Status Reason Specialty Diagnoses / Procedures Referred By Gill aleman Referred To Contact Radiology Adc X-Ray [address] [place] [address] Phone: Fax: Encounter Details Date Type Department Care Team Description 03/28/2020 Hospital Encounter [facility] Gill Fontaine FNP Arrived [facility] [address] [place] [address] [address] [place], [place] [address] [phone] Allergies Active Allergy Reactions Severity Noted Date Comments Iodine Hives, Itching, Rash 01/11/2020 Latex Hives, Rash 01/11/2020 Morphine Anaphylaxis 01/11/2020 documented as of this encounter (statuses as of 03/29/2020) Medications Medication Sig Dispensed Refills Start Date [...] as of this encounter (statuses as of 03/29/2020) Active Problems Problem Noted Date Hyperthyroidism 02/17/2020 [...] as of this encounter (statuses as of 03/29/2020) Immunizations Name Administration Dates Next Due Influenza [...] been in contact with No / Unsure 03/28/2020 8:16 AM CDT someone who was confirmed or 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 documented as of this encounter Last Filed Vital Signs Not on filedocumented in this encounter Miscellaneous Notes Result QuickNote - Lorraine Meeks FNP - 03/28/2020 8:15 AM CDTAs we discussed xray did not show any fracture. Xray did show incidental finding of heel spur and foreign body. I placed referral to General Surgery so you can discuss if anything needs to be done in regards to foreign body. documented in this encounter Plan of Treatment Date Type Specialty Care Team Description 05/11/2020 Office Visit Family Medicine Kobi Queen MD [address] [place] [phone] 06/26/2020 Office Visit Endocrinology Diabetes & Kirstie Dhaliwal MD Metabolism [address] [place] [address] [phone] Health Maintenance Due Date Last Done Comments [...] Priority Date/Time Associated Diagnosis Comme nts XR FOOT 3+ VW LEFT STAT 03/28/2020 8:44 AM Pain of toe of left Results for this CDT foot procedure are i n the results section. documented in this encounter Results XR FOOT 3+ VW LEFT (03/28/2020 8:44 AM CDT) Specimen Narrative Performed At HISTORY: Second toe swelling, pain and r edness. PACS/VR/DOSE FINDINGS: AP, lateral, oblique views of left foot show ed no acute fracture or dislocation. Moderate hypertrophic degenerative arthr itis of first, second and third tarsometatarsal joints, mild degenerative arthritis of first and second MTP joints, small interphalangeal joints of second, third and fourth toes, ankle joint, talonavicular joint noted. 10 mm heel spur and prominent retrocalca charley exostosis within the lower Achilles tendon noted. CONCLUSIONS: No acute fracture or disloc ation in left foot. Incidental note of 6 x 1 mm size radiopa que foreign body in the medial subcutaneous soft tissue close to the na vicular bone, without affecting underlying bone or joint. Procedure Note [facility], Radiant Results Inft User - 2019 9:08 AM CDT HISTORY: Second toe swelling, pain and redness. FINDINGS: AP, lateral, oblique views of left foot showed no acute fracture or dislocation. Moderate hypertrophic degenerative arthr itis of first, second and third tarsometatarsal joints, mild degenerativ e arthritis of first and second MTP joints, small interphalangeal joints of second, third and fourth toes, ankle joint, talonavicular joint noted. 10 mm heel spur and prominent retrocalca charley exostosis within the lower Achilles tendon noted. CONCLUSIONS: No acute fracture or disloc ation in left foot. Incidental note of 6 x 1 mm size radiopa que foreign body in the medial subcutaneous soft tissue close to the na vicular bone, without affecting underlying bone or joint. Performing Organization Address City/State/Zipcode Phone Number PACS/VR/DOSE documented in this encounter Visit Diagnoses Diagnosis Pain of toe of left foot Pain in limb documented in this encounter Insurance Payer Benefit Plan / Subscriber ID Effective Phone Address T ype Group Dates [facility] [id number] 2019-Ruddy candelario [facility] documented as of this encounter
--- OUTSIDE RECORDS SUMMARY | 2020-04-13 05:21 | XMS REPORT | Summary of Care ---
:1950 Author Organization [facility] Address [address] [place] [address] Care Team Providers Name Role Phone Mabel Queen MD Primary Care Provider Reason for Referral Radiology Services (Routine) Status Reason Specialty Diagnoses / Referred By Referred To Procedures Contact Contact New Request Diagnostic Diagnoses Hyperthyroidism Multiple thyroid nodules Ben, Radiology Procedures NM THYROID UPTAKE AND SCAN MD Kirstie [address] [place] [address] Radiology Services (Routine) Status Reason Specialty Diagnoses / Referred By Referred To Procedures Contact Contact New Request Diagnostic Diagnoses Hyperthyroidism Multiple thyroid nodules Ben, Radiology Procedures US HEAD NECK MD Kirstie [address] [place] [address] Reason for Visit Reason Comments New Patient Thyroid Problem (LINDA) Status Reason Specialty Diagnoses / Referred By Referred To Procedures Contact Contact Authorized Endocrinology Diagnoses Hyperthyroidism Ben Queen, Diabetes & Procedures CONSULT/REFERRAL ENDOCRINOLOGY Preferred Location: [facility] MD Kirstie Brito MD [address], [address] [place] [address] Phone: Fax: Encounter Details Date Type Department Care Team Description 03/24/2020 Office Visit [facility] David Contreras, Hyperthyro idism (Primary Dx); Diabetes-LC MD Kirstie Multiple thyroid nodules [facility] [address] [place], [facility], [place] [phone] Allergies Active Allergy Reactions Severity Noted Date Comments Iodine Hives, Itching, Rash 01/11/2020 Latex Hives, Rash 01/11/2020 Morphine Anaphylaxis 01/11/2020 documented as of this encounter (statuses as of 03/31/2020) Medications Medication Sig Dispensed Refills Start Date [...] as of this encounter (statuses as of 03/31/2020) Active Problems Problem Noted Date Hyperthyroidism 02/17/2020 [...] as of this encounter (statuses as of 03/31/2020) Immunizations Name Administration Dates Next Due Influenza [...] Sign Reading Time Taken Comments Blood Pressure 131/69 03/24/2020 3:31 PM CDT Pulse 82 03/24/2020 3:25 PM CDT Temperature 36.6 C (97.8 F) 03/24/2020 3:25 PM CDT Respiratory Rate 20 03/24/2020 3:25 PM CDT Oxygen Saturation 100% 03/24/2020 3:25 PM CDT Inhaled Oxygen Concentration - - Weight 97.3 kg (214 lb 6.4 oz) 03/24/2020 3:25 PM CDT Height 177.8 cm (5' 10") 03/24/2020 3:25 PM CDT Body Mass Index 30.76 03/24/2020 3:25 PM CDT documented in this encounter Progress Notes Kirstie Contreras MD - 03/24/2020 3:30 PM CDT Endocrinology Outpatient Progress Note CHIEF COMPLAINT: Abnormal thyroid labs HPI: Judy Green is a 70 year old /White female with PMH of hypertension, T2D, left nephrectomy s/p kidney cancer, bladder prolapse, and fibromyalgia. Abnormal thyroid tests: She was referred to the clinic following the discovery of suppressed TSH and mildly elevated T3 on recent blood labs(02/10/2020) Associated symptoms include fatigue and dysphagia. The patient denies palpitations, excessive sweating, and diarrhea. [facility] is significant for throat cancer (father and brother) as well as hypothyroidism (daughter and granddaughter). The patient reports that she is a never smoker and does not drink alcohol. The following portions of the patient's history were reviewed and updated as appropriate: allergies,current medications, past family history, past medical history, past social history, past surgical history. PAST MEDICAL HISTORY Past Medical History: Diagnosis Date Anxiety 02/11/2020 Dilated bile duct 02/17/2020 Essential hypertension Fatty liver 02/17/2020 Fibromyalgia History of kidney cancer 01/11/2020 Hyperthyroidism 02/17/2020 Liver lesion 02/17/2020 Panniculitis 02/11/2020 Type 2 diabetes mellitus, without long-term current use of insulin 01/11/2020 PAST SURGICAL HISTORY Past Surgical History: Procedure Laterality Date EYE SURGERY cataract surgery HERNIA REPAIR HYSTERECTOMY LEFT HEART CATH NEPHRECTOMY Left FAMILY HISTORY Family History Problem Relation Age of Onset Heart Mother Cancer Father Cancer Brother SOCIAL HISTORY Social History Tobacco Use Smoking status: Never Smoker Smokeless tobacco: Never Used Substance Use Topics Alcohol use: Never Frequency: Never Binge frequency: Never Drug use: Not on file MEDICATIONS Current Outpatient Medications Medication Sig Dispense Refill ESTRADIOL VAGINAL Insert 0.01 % into vagina. Uses 3 x per week OMEPRAZOLE MAGNESIUM ORAL Take 40 mg by mouth daily. amLODIPine 10 mg tablet Take 1 tablet by mouth daily. DOSE INCREASE. 30 tablet 5 citalopram 10 mg tablet Take 1 tablet by mouth daily. 30 tablet 2 dicyclomine 10 mg capsule Take 1 capsule by mouth 4 (four) times daily as needed for Abdominal pain. 30 capsule 0 cefadroxil 500 mg capsule Take 1 capsule by mouth 2 (two) times daily for 7 days. 14 capsule 0 No current facility-administered medications for this visit. ALLERGIES Allergies Allergen Reactions Iodine Hives, Itching and Rash Latex Hives and Rash Morphine Anaphylaxis Review of Systems Review of Systems Constitutional: Positive for fatigue and weight gain. HENT: Positive for trouble swallowing. Eyes: Positive for visual disturbance. Respiratory: Negative for shortness of breath. Cardiovascular: Negative for chest pain and palpitations. Gastrointestinal: Positive for constipation. Genitourinary: Positive for urgency. Bladder prolapse Neurological: Positive for dizziness and headaches. Negative for syncope and light-headedness. Upon standing for the past few months Cluster headaches and migraines Hematological: Positive for heat intolerance. Endocrine: Positive for hair loss, heat intolerance and weight gain. Temp needs to be <72 to sleep ? ? Examination BP 131/69 | Pulse 82 | Temp 36.6 C (97.8 F) (Tympanic) | Resp 20 | Ht 5' 10" (1.778 m) | Wt214 lb 6.4 oz (97.3 kg) | SpO2 100% | BMI 30.76 kg/m Constitutional: Oriented to person, place, and time. Normocephalic and atraumatic Well-developed andwell-nourished. Eyes: Conjunctiva/corneas clear, EOM's intact , No icterus ENT : Lips, mucosa, and tongue normal; teeth and gums normal Lymphatics/Neck/Thyroid : Supple. Mild thyromegaly noted on physical exam. Noted patient having difficulty swallowing during thyroid exam. Upon visualization of thyroid using bedside ultrasound, at least 3 >2 cm nodules were noted. Nodules exhibited mild vascularity and heterogenous echotexture. Cardiovascular: Regular rate and rhythm, S1 and S2 normal, no murmurs Pulmonary: Clear to auscultation bilaterally. No wheezes, respirations unlabored GI: Soft, non-tender, bowel sounds active all four quadrants Integumentary: No rashes or lesions Neurology: Normal strength and no focal deficits Psychiatry : Normal mood and affect ? Data Review ? Results for JUDY GREEN ( ) as of 03/24/2020 16:27 Ref. Range 01/11/2020 15:29 02/10/2020 14:45 TSH Latest Ref Range: 0.45 - 4.70 mIU/L 0.17 (L) 0.03 (L) FREE T4 Latest Ref Range: 0.78 - 2.20 ng/dL: 1.31 FREE T3 Latest Ref Range: 2.77 - 5.27 pg/mL 5.32 (H) In clinic bedside USG 03/24/2020-- Upon visualization of thyroid using bedside ultrasound, at least 3 >2 cm nodules were noted. Nodules exhibited mild vascularity and heterogenous echotexture. ? ASSESSMENT AND PLAN Judy Green is here today for an evaluation of abnormal thyroid labs. subclinical Hyperthyroidism: based on her TSH being suppressed with elevated T3 she likely has subclinical hyperthyroidism vs abnormal TFTs. Possible etiology-- toxic nodules vs. Graves' disease vs thyroiditis Plan: - redraw TFTs (T3, T4, TSH)-- TSH remains suppressed. Normal T4 and T3 - formal ultrasound of neck - refer to Nuclear Medicine for thyroid uptake scan - will monitor with TFTs Multiple Thyroid Nodules: Patient is noted to have thyromegaly on exam and quick bedside USG showed at least 3 >2 cm nodules were noted. Nodules exhibited mild vascularity and heterogenous echotexture. Plan: - check formal neck [facility]G [facility] GLASS uptake and scan Patient was seen and discussed with Dr. Contreras. Caroline Duarte, MS3 I personally examined the patient on 03/24/2020 and have verified Ms. Caroline Duarte, medical student documentation and/or findings, including the history, physical exam, and medical decision making. Additionally, I have personally performed or re-performed the physical exam and medical decision making activities of this patient's evaluation and management service. Necessary addendums were made to above document by me. Kirstie Contreras MD Director Business Development Endocrinology, Diabetes and Metabolism Kirstie Contreras MD - 03/24/2020 3:30 PM CDT Judy Green is a 70 year old female Chief Complaint Patient presents with New Patient Thyroid Problem documented in this encounter Plan of Treatment Date Type Specialty Care Team Description 04/03/2020 [place] Helper Visit Family Medicine Lab, [facility] Pob I 04/06/2020 Appointment Radiology Kirstie Contreras MD [address] [place] [address] 05/11/2020 Office Visit Family Medicine Kobi Queen MD [address] [place] [phone] 06/26/2020 Office Visit Endocrinology Diabetes & Kirstie Dhaliwal MD Metabolism [address] [place] [address] [phone] Name Type Priority Associated Diagnoses Order S chedule US HEAD NECK IMAGING Routine Hyperthyroidism Expected: 03/24/2020, Multiple thyroid nodules Exp ires: 03/24/2021 NM THYROID UPTAKE AND IMAGING Routine Hyperthyro idism Expected: 03/24/2020, SCAN Multiple thyroid nodules Exp ires: 03/24/2021 Health Maintenance Due Date Last Done Comments [...] 03/21/2020 documented as of this encounter Results TRIIODOTHYRONINE (03/21/2020 3:33 PM CDT) Pathologist Sig nature T3 138.0 97.0 - 170.0 ng/dL [facility] Specimen Blood Performing Organization Address City/State/Zipcode Phone Number [facility] CLIA: [id number] [place] [address] [place] [address] THYROID STIMULATING HORMONE (03/21/2020 3:32 PM CDT) Pathologist Sig nature TSH 0.02 (L) 0.45 - 4.70 mIU/L [facility] Specimen Blood Performing Organization Address City/[facility] Phone Number [facility] CLIA: [id number] [place] [address] FREE T4 (03/21/2020 3:32 PM CDT) Pathologist Sig nature FREE T4 1.20 0.78 - 2.20 ng/dL: [facility] Specimen Blood Performing Organization Address [facility] Phone Number [facility] CLIA: [id number] [place] [address] documented in this encounter Visit Diagnoses Diagnosis Hyperthyroidism - Primary Thyrotoxicosis without mention of goiter or other cause, without mention of thyrotoxic crisis or storm Multiple thyroid nodules Nontoxic multinodular goiter documented in this encounter Insurance Payer Benefit Plan / Subscriber ID Effective Phone Address T ype Group Dates [facility] [id number] 2019-Ruddy candelario [facility] documented as of this encounter
--- OUTSIDE RECORDS SUMMARY | 2020-04-13 05:21 | XMS REPORT | Summary of Care ---
:1950 Author Organization [facility] Address [address] [place] [address] Care Team Providers Name Role Phone Mabel Queen MD Primary Care Provider Reason for Referral Radiology Services (STAT) Status Reason Specialty Diagnoses / Referred By Referred To Procedures Contact Contact New Request Diagnostic Diagnoses Pain of toe of left foot Lorraine Meeks, Radiology Procedures XR FOOT 3+ VW LEFT BREAD AND PASTRY BAKER [address] [facility] [address] [place] [address] Reason for Visit Reason Comments Toe Pain Left toe next to big toe, re d swollen and painful. Dropped a candle on it a week ago. Encounter Details Date Type Department Care Team Description 03/27/2020 Urgent Care [facility] Family Darin Thomas, BREAD AND PASTRY BAKER [address] [place] [phone] Pain of toe of left Medicine - [place] [facility] (Primary Dx) [address] [place] [address] Allergies Active Allergy Reactions Severity Noted Date Comments Iodine Hives, Itching, Rash 01/11/2020 Latex Hives, Rash 01/11/2020 Morphine Anaphylaxis 01/11/2020 documented as of this encounter (statuses as of 03/27/2020) Medications Medication Sig Dispensed Refills Start Date [...] as of this encounter (statuses as of 03/27/2020) Active Problems Problem Noted Date Hyperthyroidism 02/17/2020 [...] as of this encounter (statuses as of 03/27/2020) Immunizations Name Administration Dates Next Due Influenza [...] Sign Reading Time Taken Comments Blood Pressure 152/76 03/27/2020 3:44 PM CDT Pulse 84 03/27/2020 3:44 PM CDT Temperature 36.8 C (98.2 F) 03/27/2020 3:44 PM CDT Respiratory Rate 20 03/27/2020 3:44 PM CDT Oxygen Saturation 96% 03/27/2020 3:44 PM CDT Inhaled Oxygen Concentration - - Weight 97.1 kg (214 lb) 03/27/2020 3:44 PM CDT Height 177.8 cm (5' 10") 03/27/2020 3:44 PM CDT Body Mass Index 30.71 03/27/2020 3:44 PM CDT documented in this encounter Patient Instructions Patient InstructionsLorraine Meeks FNP - 03/27/2020 4:00 PM CDT1. Pain of toe of left foot - XR FOOT 3+ VW LEFT; Future R.I.C.E.: Rest, Ice, Compress, and Elevate. Rest and elevate affected area. May apply splint or nivia wrap if needed. May apply ice pack to area 3-4 times daily, for 10-15 minutes for first 2 days, after 2 days may useheating pad on low or warm compress 3-4 times daily for 10- 15 minutes May alternate ibuprofen and tylenol for pain or swelling Follow up with Ortho in 1 week or sooner if any worsening of symptoms. Pain Ibuprofen 200mg take 2 tablets every 6-8 hours with food if needed. Acetaminophen (Tylenol) 500mg take 2 tablets every 6 hours if needed. Tylenol and ibuprofen may be taken at the same time and give greater relief than expected if add thetwo effects together, called "1+1 = 3" So, may take Ibuprofen 2 pills and Acetaminophen 2 pills all at once 3 to 4 times a day. Plan of care, desired health behaviors, goals, and medication discussed with patient. Education resources provided and reviewed with AVS. Patient/guardian/family verbalized understanding & agrees to plan of care. Urgent Care precautions and follow up : 1. Return to clinic if your symptoms should worsen or fail to improve within 72 hours. 2. The care provided in the urgent care was for acute problems only. 3. You should follow up with your primary care provider within 72 hours. 4. Make sure you are staying adequately hydrated. MAY FOLLOW-UP WITH A PROVIDER OF YOUR CHOICE, SUCH : 1. A PHYSICIAN OF YOUR CHOICE OR, IF YOU WISH TO FOLLOW-UP WITHIN THE [facility], MAY TRY THESE OPTIONS (CLINIC APPOINTMENTS AVAILABLE ON BMTA-YE-BNUP BASIS): 1. SCHEDULE AN APPOINTMENT ONLINE AT WWW[facility] 2. OR CALL THE [facility] ACCESS CENTER AT OR 3. OR CALL YOUR [facility] PHYSICIAN'S OFFICE DIRECTLY IF YOU ARE ALREADY AN ESTABLISHED [facility] PATIENT. After hours care nurse access center available by calling [phone] 24 hours 7 days per week. Lorraine ORTEGA [facility] documented in this encounter Progress Notes Lorraine Meeks FNP - 03/27/2020 4:00 PM CDT Cc: Chief Complaint Patient presents with Toe Pain Left toe next to big toe, red swollen and painful. Dropped a candle on it a week ago. Samantha Green is a 70 year old female presents with concern for toe pain. About 2 weeks agoshe dropped can on left foot and it was red, swollen and painful. It improved then started hurting again 3 days ago. Pain is to left 2nd toe. She's been icing and elevating with some improvement. Also using cream and taking Tylenol. She's concerned because it's red and warm, somewhat painful. Denies any fever, chills or body aches. Eating/drinking good. Toe Pain The incident occurred more than 1 week ago. The incident occurred at home. The injury mechanism was a direct blow. The pain is present in the left foot. The quality of the pain is described as aching. The pain is at a severity of 3/10. The pain is mild. The pain has been intermittent since onset. Pertinent negatives include no inability to bear weight, loss of motion, loss of sensation, muscle weakness, numbness or tingling. She reports no foreign bodies present. The symptoms are aggravated by movement and weight bearing. She has tried ice, NSAIDs and elevation for the symptoms. The treatment provided mild relief. Allergies Samantha is allergic to iodine; latex; and morphine. Medications Outpatient Medications Prior to Visit Medication Sig Dispense Refill cefadroxil 500 mg capsule Take 1 capsule by mouth 2 (two) times daily for 7 days. 14 capsule 0 ESTRADIOL VAGINAL Insert 0.01 % into vagina. [...] needed for Abdominal pain. 30 capsule 0 No facility-administered medications prior to visit. Histories Past Medical History: Diagnosis Date Anxiety 02/11/2020 Dilated bile duct 02/17/2020 Essential hypertension Fatty liver 02/17/2020 Fibromyalgia History of kidney cancer 01/11/2020 Hyperthyroidism 02/17/2020 Liver lesion 02/17/2020 Panniculitis 02/11/2020 Type 2 diabetes mellitus, without long-term current use of insulin 01/11/2020 Past Surgical History: Procedure Laterality Date EYE SURGERY cataract surgery HERNIA REPAIR HYSTERECTOMY LEFT HEART CATH NEPHRECTOMY Left Social History Socioeconomic History Marital status: Spouse [...] file Gets together: Not on file Attends sabianism service: Not on file Active member of [...] file Social History Narrative Not on file Family History Problem Relation Age of Onset Heart Mother Cancer Father Cancer Brother Review of Systems Constitutional: Negative for activity change, appetite change, chills, fatigue and fever. HENT: Negative for sore throat. Respiratory: Negative for cough, shortness of breath, wheezing and stridor. Gastrointestinal: Negative for diarrhea, nausea and vomiting. Musculoskeletal: Positive for arthralgias, joint swelling and myalgias. Negative for gait problem. Skin: Negative for rash and wound. Neurological: Negative for dizziness, tingling, weakness, numbness and headaches. All other systems reviewed and are negative. Vital Signs BP (!) 152/76 | Pulse 84 | Temp 36.8 C (98.2 F) | Resp 20 | Ht 5' 10" (1.778 m) | Wt 214 lb(97.1 kg) | SpO2 96% | BMI 30.71 kg/m Physical Exam Vitals signs and nursing note reviewed. Constitutional: Appearance: She is well-developed. HENT: Head: Normocephalic and atraumatic. Right Ear: External ear normal. Left Ear: External ear normal. Nose: Nose normal. Mouth/Throat: Lips: [place]. Mouth: Mucous membranes are moist. Pharynx: Oropharynx is clear. Eyes: Conjunctiva/sclera: Conjunctivae normal. Neck: Musculoskeletal: Normal range of motion and neck supple. Cardiovascular: Rate and Rhythm: Normal rate and regular rhythm. Heart sounds: Normal heart sounds. No murmur. No friction rub. No gallop. Pulmonary: Effort: Pulmonary effort is normal. No respiratory distress. Breath sounds: Normal breath sounds. No wheezing, rhonchi or rales. Musculoskeletal: Normal range of motion. Left foot: Tenderness and swelling present. Feet: Comments: Left 2nd toe with erythema, swelling and tenderness Skin: General: Skin is warm and dry. Neurological: Mental Status: She is alert and oriented to person, place, and time. Psychiatric: Behavior: Behavior normal. Assessment/Plan Samantha Green is a 70 year old female presents with concern for toe pain. 1. Pain of toe of left foot - XR FOOT 3+ VW LEFT; Future Patient wishes to get xray in the morning. R.I.C.E.: Rest, Ice, Compress, and Elevate. Rest and elevate affected area. May apply splint or nivia wrap if needed. May apply ice pack to area 3-4 times daily, for 10-15 minutes for first 2 days, after 2 days may useheating pad on low or warm compress 3-4 times daily for 10- 15 minutes May alternate ibuprofen and tylenol for pain or swelling Follow up with Ortho in 1 week or sooner if any worsening of symptoms. Pain Ibuprofen 200mg take 2 tablets every 6-8 hours with food if needed. Acetaminophen (Tylenol) 500mg take 2 tablets every 6 hours if needed. Tylenol and ibuprofen may be taken at the same time and give greater relief than expected if add thetwo effects together, called "1+1 = 3" So, may take Ibuprofen 2 pills and Acetaminophen 2 pills all at once 3 to 4 times a day. Plan of care, desired health behaviors, goals, and medication discussed with patient. Education resources provided and reviewed with AVS. Patient/guardian/family verbalized understanding & agrees to plan of care. Urgent Care precautions and follow up : 1. Return to clinic if your symptoms should worsen or fail to improve within 72 hours. 2. The care provided in the urgent care was for acute problems only. 3. You should follow up with your primary care provider within 72 hours. 4. Make sure you are staying adequately hydrated. MAY FOLLOW-UP WITH A PROVIDER OF YOUR CHOICE, SUCH : 1. A PHYSICIAN OF YOUR CHOICE OR, IF YOU WISH TO FOLLOW-UP WITHIN THE [facility], MAY TRY THESE OPTIONS (CLINIC APPOINTMENTS AVAILABLE ON PQQP-OC-QFPE BASIS): 1. SCHEDULE AN APPOINTMENT ONLINE AT WWW[facility] 2. OR CALL THE [facility] ACCESS CENTER AT OR 3. OR CALL YOUR [facility] PHYSICIAN'S OFFICE DIRECTLY IF YOU ARE ALREADY AN ESTABLISHED [facility] PATIENT. After hours care nurse access center available by calling [phone] 24 hours 7 days per week. [facility]raine ORTE[facility] Angie Beverly MA - 03/27/2020 4:00 PM CDT Samantha Green is a 70 year old female Chief Complaint Patient presents with Toe Pain Left toe next to big toe, red swollen and painful. Dropped a candle on it a week ago. Vitals: 03/27/20 1544 BP: (!) 152/76 Pulse: 84 Resp: 20 Temp: 36.8 C (98.2 F) SpO2: 96% Weight: 214 lb (97.1 kg) Height: 5' 10" (1.778 m) [address] [place] [address] Store number: [id number] P: [phone] F: [phone] All Vitals taken, allergies and all medications reviewed, fall risk assessed. Pain level 5. Angie Rios MA 03/27/2020 3:52 PM documented in this encounter Plan of Treatment Date Type Specialty Care Team Description 05/11/2020 Office Visit Family Medicine Kobi Queen MD [address] [place] [phone] 06/26/2020 Office Visit Endocrinology Diabetes & Kirstie Dhaliwal MD Metabolism [address] [place] [address] [phone] Name Type Priority Associated Diagnoses Order S chedule XR FOOT 3+ VW LEFT IMAGING STAT Pain of toe of left fo ot Expected: 03/27/2020, Expires: 2020 Health Maintenance Due Date Last Done Comments [...] filedocumented in this encounter Visit Diagnoses Diagnosis Pain of toe of left foot - Primary Pain in limb documented in this encounter Insurance Payer Benefit Plan / Subscriber ID Effective Phone Address T ype Group Dates [facility] [id number] 2019-Ruddy candelario [facility] documented as of this encounter
--- OUTSIDE RECORDS SUMMARY | 2020-04-13 05:21 | XMS REPORT | Summary of Care ---
:1950 Author Organization [facility] Address [address] [place] [address] Care Team Providers Name Role Phone Mabel Queen MD Primary Care Provider Reason for Referral Radiology Services (Routine) Status Reason Specialty Diagnoses / Referred By Referred To Procedures Contact Contact New Request Diagnostic Diagnoses Hyperthyroidism Multiple thyroid nodules Ben, Radiology Procedures NM THYROID UPTAKE AND SCAN MD Kirstie [address] [place] [address] Radiology Services (Routine) Status Reason Specialty Diagnoses / Referred By Referred To Procedures Contact Contact New Request Diagnostic Diagnoses Hyperthyroidism Multiple thyroid nodules Ben, Radiology Procedures US HEAD NECK MD Kirstie [address] [place] [address] Reason for Visit Reason Comments New Patient Thyroid Problem (LINDA) Status Reason Specialty Diagnoses / Referred By Referred To Procedures Contact Contact Authorized Endocrinology Diagnoses Hyperthyroidism Ben Queen, Diabetes & Procedures CONSULT/REFERRAL ENDOCRINOLOGY Preferred Location: [facility] MD Kirstie Brito MD [address], [address] [place] [address] Phone: Fax: Encounter Details Date Type Department Care Team Description 03/24/2020 Office Visit [facility] David Contreras, Hyperthyro idism (Primary Dx); Diabetes-LC MD Kirstie Multiple thyroid nodules [facility] [address] [place] [address] [facility] [address], [place] [phone] Allergies Active Allergy Reactions Severity Noted Date [...] patient denies palpitations, excessive sweating, and diarrhea. [facility] is significant for throat cancer (father and [...] above document by me. Kirstie Contreras MD Mechanical Car Checker Endocrinology, Diabetes and Metabolism Kirstie Contreras MD - 03/24/2020 3:30 PM CDT Judy Green is a 70 year old female Chief Complaint Patient presents with New Patient Thyroid Problem documented in this encounter Plan of Treatment Date Type Specialty Care Team Description 04/03/2020 Imaging Center Manager Visit Family Medicine Lab, [facility] Pob I 04/06/2020 Appointment Radiology Kirstie Contreras MD [address] [place] [address] 05/11/2020 Office Visit Family Medicine Kobi Queen MD [address] [place] [phone] 06/26/2020 Office Visit Endocrinology Diabetes & Kirstie Dhaliwal MD Metabolism [address] [place] [address] [phone] Name Type Priority Associated Diagnoses Order S [...] nature T3 138.0 97.0 - 170.0 ng/dL [facility] ES Specimen Blood Performing Organization Address City/State/Zipcode Phone Number [facility] CLIA: [id number] [place] [address] [place] [address] THYROID STIMULATING HORMONE (03/21/2020 3:32 PM CDT) Pathologist Sig nature TSH 0.02 (L) 0.45 - 4.70 mIU/L [facility] Specimen Blood Performing Organization Address City/[facility] Phone Number [facility] CLIA: [id number] [place] [address] FREE T4 (03/21/2020 3:32 PM CDT) Pathologist Sig nature FREE T4 1.20 0.78 - 2.20 ng/dL: [facility] Specimen Blood Performing Organization Address [facility] Phone Number [facility] CLIA: [id number] [place] [address] documented in this encounter Visit Diagnoses Diagnosis Hyperthyroidism - Primary Thyrotoxicosis without mention of goiter or other cause, without mention of thyrotoxic crisis or storm Multiple thyroid nodules Nontoxic multinodular goiter documented in this encounter Insurance Payer Benefit Plan / Subscriber ID Effective Phone Address T ype Group Dates [facility] [id number] 2019-Ruddy candelario [facility] - MEDICARE [facility]ED MEDIC[facility] ADVANTAGE documented as of this encounter
--- OUTSIDE RECORDS SUMMARY | 2020-04-13 05:21 | XMS REPORT | Summary of Care ---
:1950 Author Organization [facility] Address [address] [place] [address] Care Team Providers Name Role Phone Mabel Queen MD Primary Care Provider Reason for Referral (Routine) Status Reason Specialty Diagnoses / Referred By Referred To Procedures Contact Contact New Request Surgery Diagnoses Foreign body (FB) in soft tissue Lorraine Meeks FNP Procedures CONSULT/REFERRAL GENERAL SURGERY Preferred Location: Other (see comments) ([place]) [address] [facility] [address] [place], [place] [address] Reason for Visit Reason Comments Results Encounter Details Date Type Department Care Team Description 03/28/[address] [facility] Family Medicine Lorraine Carrera FNP Results - [place] [address] [facility] [address] [facility] [address] [place] [address] [place] [address] [phone] Allergies Active Allergy Reactions Severity Noted Date Comments Iodine Hives, Itching, Rash 01/11/2020 Latex Hives, Rash 01/11/2020 Morphine Anaphylaxis 01/11/2020 documented as of this encounter (statuses as of 03/28/2020) Medications Medication Sig Dispensed Refills Start Date End Date Status amLODIPine mg Take 1 tablet by 30 tablet [...] as of this encounter (statuses as of 03/28/2020) Active Problems Problem Noted Date Hyperthyroidism 02/17/2020 [...] as of this encounter (statuses as of 03/28/2020) Immunizations Name Administration Dates Next Due Influenza [...] this encounter Miscellaneous Notes Telephone Encounter - Lorraine Meeks FNP - 03/28/2020 12:49 PM CDTDiscussed with patient that foot xray did not show any fracture or dislocation but did show incidental finding of heel spur and foreign body. She's currently on antibiotic for suspected UTI. Will placereferral for general surgery so she can discuss if anything needs to be done in regards to foreign body. She agreed with POC. documented in this encounter Plan of Treatment Date Type Specialty Care Team Description 05/11/2020 Office Visit Family Medicine Kobi Queen MD [address] [place] [phone] 06/26/2020 Office Visit Endocrinology Diabetes & [place] Kirstie gee MD Metabolism [address] [place] [address] Health Maintenance Due Date Last Done Comments [...] filedocumented in this encounter Visit Diagnoses Diagnosis Foreign body (FB) in soft tissue - Prima ry Residual foreign body in soft tissue documented in this encounter Insurance Payer Benefit Plan / Subscriber ID Effective Phone Address T e Group Dates [facility] [id number] 2019-Ruddy Bowens HEALTHCARE - [facility] documented as of this encounter
--- OUTSIDE RECORDS SUMMARY | 2020-04-13 05:21 | XMS REPORT | Summary of Care ---
:1950 Author Organization [facility] - [facility] Address [address] [place] [address] Care Team Providers Name Role Phone Mabel Queen MD Primary Care Provider Reason for Visit Reason Comments Follow-up Urgent Care Encounter Details Date Type Department Care Team Description 03/31/2020 Telemedicine Visit [facility] Family Julian Queen Cellulitis of Medicine - Eduar Monroe MD second toe of left [address] [place] [address] [address] (Primary Dx) [place] [phone] Allergies Active Allergy Reactions Severity Noted Date Comments Iodine Hives, Itching, Rash 01/11/2020 Latex Hives, Rash 01/11/2020 Morphine Anaphylaxis 01/11/2020 documented as of this encounter (statuses as of 04/02/2020) Medications Medication Sig Dispensed Refills Start Date End Date Status amLODIPine 10 mg Take 1 tablet 30 tablet 5 02/10/2020 Active tabletIndications: by mouth daily. Essential DOSE INCREASE. hypertension dicyclomine 10 mg Take 1 capsule 30 capsule 0 02/10/2020 Active capsuleIndications by mouth 4 : Intermittent (four) times abdominal pain daily as needed for Abdominal pain. citalopram 10 mg Take 1 tablet 30 tablet 2 02/10/2020 Active tabletIndications: by mouth daily. Anxiety ESTRADIOL VAGINAL Insert 0.01 % 0 Active into vagina. Uses 3 x per week omeprazole 40 mg 0 03/12/2020 Ac tive capsule clindamycin 300 mg Take 1 capsule 30 capsule 0 03/31/2020 11/0 Active capsuleIndications by mouth 3 0 : Cellulitis of (three) times second toe of left daily for 10 foot days. Take a daily probiotic while on this medication. OMEPRAZOLE Take 40 mg by 0 Disco ntinued MAGNESIUM ORAL mouth daily. 0 cefadroxil 500 mg Take 1 capsule 14 capsule 0 03/24/202003/31 capsuleIndications by mouth 2 0 : Abnormal (two) times urinalysis daily for 7 days. documented as of this encounter (statuses as of 04/02/2020) Active Problems Problem Noted Date Hyperthyroidism 02/17/2020 [...] as of this encounter (statuses as of 04/02/2020) Immunizations Name Administration Dates Next Due Influenza [...] or more drinks on one occasion? Ne liela 01/11/2020 Sex Assigned at Date Recorded Not on file COVID-19 Exposure Response Date Recorded In the last month, have you been in contact with No / Unsure 03/28/2020 8:16 AM CDT someone who was confirmed or 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 documented as of this encounter Last Filed Vital Signs Not on filedocumented in this encounter Patient Instructions Patient InstructionsVenita Dixon R - 03/31/2020 4:30 PM CDT Patient Education Cellulitis Cellulitis is an infection of the deep layers of skin. A break in the skin, such as a cut or scratch, can let bacteria under the skin. If the bacteria get to deep layers of the skin, it can be serious.If not treated, cellulitis can get into the bloodstream and lymph nodes. The infection can then spread throughout the body. This causes serious illness. Cellulitis causes the affected skin to become red, swollen, warm, and sore. The reddened areas have a visible border. An open sore may leak fluid (pus). You may have a fever, chills, and pain. Cellulitis is treated with antibiotics taken for 7 to 10 days. An open sore may be cleaned and covered with cool wet gauze. Symptoms should get better 1 to 2 days after treatment is started. Make sure to take all the antibiotics for the full number of days until they are gone. Keep taking the medicineeven if your symptoms go away. Home care Follow these tips: Limit the use of the part of your body with cellulitis. If the infection is on your leg, keep your leg raised while sitting. This helps reduce swelling. Take all of the antibiotic medicine exactly as directed until it is gone. Don't miss any doses, especially during the first 7 days. Dont stop taking the medicine when your symptoms get better. Keep the affected area clean and dry. Wash your hands with soap and clean, running water before and after touching your skin. Anyone else who touches your skin should also wash his or her hands. Don't share towels. Follow-up care Follow up with your healthcare provider, or as advised. If your infection doesn't go away on the first antibiotic, your healthcare provider will prescribe a different one. When to seek medical advice Call your healthcare provider right away if any of these occur: Red areas that spread Swelling or pain that gets worse Fluid leaking from the skin (pus) Fever higher of 100.4 F (38.0 C) or higher after 2 days on antibiotics [employer] last reviewed this educational content on 12/31/201819990398-7577 [employer]. [address] [place] [address], [place] [address]. All rights reserved. This information is not intended as a substitute for professional medical care. Always follow your healthcare professional's instructions. documented in this encounter Progress Notes Kobi Queen MD - 03/31/2020 4:30 PM CDT TELEHEALTH NOTE Verbal consent obtained from Patient: Samantha Green due to the COVID-19 pandemic for telehealth services provided below. Communication with patient was conducted via Video Call. Location of Patient: Home Location of Provider: Office Date of Service: 03/31/2020 CC: Chief Complaint Patient presents with Follow-up Urgent Care-cellulitis toe HPI Samantha Green is a 70 year old female who participated in a Telehealth visit today for an urgent care follow-up. The patient presented to [facility] on 03/27/2020 with complaint of left 2nd toe pain and swelling after dropping a candle on it 2 weeks prior. The patient underwent the following evaluations: X-rays. Treatments in the UC included: None. At discharge the patient was instructed to take the following medications: She was told to continue cefadroxil (which I had prescribed previously for a presumed UTI/leukocytosis) and to take OTC ibuprofen and Tylenol, and RICE was recommended. The patient was told to follow-up with her PCP. Since the UC visit the patient has experienced the following:She still has swelling, warmth, and redness of her left 2nd toe despite taking cefadroxil. She feels the progression of her symptoms is worsening since she finished the course of cefadroxil. She denies fever. Her X-rays only showed arthritis and foreign body in a different part of the foot. Allergies Allergen Reactions Iodine Hives, Itching and Rash Latex Hives and Rash Morphine Anaphylaxis Current Outpatient Medications: omeprazole 40 mg capsule, , Disp: , Rfl: cefadroxil 500 mg capsule, Take 1 capsule by mouth 2 (two) times daily for 7 days., Disp: 14 capsule, Rfl: 0 ESTRADIOL VAGINAL, Insert 0.01 % into vagina. Uses 3 x per week, Disp: , Rfl: amLODIPine 10 mg tablet, [...] on file Review of Systems Constitutional: Negative. Respiratory: Negative. Cardiovascular: Negative. Musculoskeletal: Positive for arthralgias and joint swelling. Skin: Positive for color change. Neurological: Negative. Negative for numbness. Vital signs There were no vitals taken for this visit. Physical Exam Constitutional: She is oriented to person, place, and time. She appears well- developed and well-nourished. No distress. Pulmonary/Chest: Effort normal. No stridor. No respiratory distress. No audible adventitious breath sounds Musculoskeletal: Left foot: Decreased range of motion (2nd toe). Swelling (2nd toe) present. Feet: Neurological: She is alert and oriented to person, place, and time. Skin: There is erythema (left 2nd toe). No pallor. Psychiatric: She has a normal mood and affect. Her speech is normal and behavior is normal. Judgmentand thought content normal. Cognition and memory are normal. LABS: CBC CMP WBC (10*3/L) Date [...] 1.1 mg/dL Final TSH (mIU/L) Date Value 03/21/2020 0.02 (L) No components found for: BILIUNCOM No results found for: BILICONJ ALTv Date Value Ref Range Status 01/11/2020 62 (H) 5 - 35 U/L Final AST(SGOT) Date Value Ref Range Status 01/11/2020 56 (H) 13 - 40 U/L Final ALK PHOS Date Value Ref Range Status 01/11/2020 102 34 - 122 U/L Final ASSESSMENT/PLAN Diagnoses and all orders for this visit: Cellulitis of second toe of left foot Antibiotic treatment is warranted given the exam findings. The patient was told to be sure to complete the full antibiotic course. She should take a daily probiotic while on clindamycin and she was warned about the potential for C diff colitis with this antibiotic though I do feel the benefits of using it outweigh the risks. I also recommend the following: Keep the area clean and dry. Antibioticointment is not necessary unless there is an open wound associated with the cellulitis. Elevate thearea above heart level to help reduce swelling and to hasten the healing process. Wash hands regularly and avoid sharing personal hygiene items like towels to help prevent spread of certain bacterial i nfections (such as MRSA and MSSA) to others. Strong ER precautions were given for worsening symptoms because IV antibiotics may be required. If she does not respond at all to antibiotic therapy the possibility of acute gout will have to be considered. - clindamycin 300 mg capsule; Take 1 capsule by mouth 3 (three) times daily for 10 days. Take a daily probiotic while on this medication. Plan of care, desired health behaviors, goals, Ddx, and any prescribed medications were discussed with the patient. Education resources and self- management tools were provided in the After Visit Summary (AVS) which is accessible through [employer]. A total of 15 minutes was spent on the Video Call, chart review, and coordination of care with specialists. Patient/guardian/family verbalized understanding and agrees to the plan of care. Barriers to care: None. Ability to manage care: Good. Advanced care planning (living will) information was not given/offered to the patient to review for discussion at a future visit. If applicable, the [facility] database was accessed to review any controlled substance prescription claims data. If the patient is taking prescribed medications, the [employer] prescription claims data in [facility] was reviewed to assess patient compliance with the medication treatment plan. Follow-up: Return if symptoms worsen or fail to improve. Return for routine care as scheduled or previously advised. Scribe Attestation I, Venita Dixon , am scribing for, and in the presence of, Kobi Queen MD who performed the services described here-in. Venita Dixon, March 31, 2020, 4:06 PM Physician Attestation I, Kobi Queen MD, personally performed the services described in this documentation , as scribed by, Venita Dixon in my presence and it is both accurate and complete. Kobi Queen MD March 31, 2020, 4:06 PM UP INSPECTOR documented in this encounter Plan of Treatment Date Type Specialty Care Team Description 04/06/2020 Appointment Radiology Kirstie Contreras MD [facility] [place] [address] [phone] 04/10/2020 Certified Personal Chef Visit Family Medicine Lab, Roxana Jennings I 05/11/2020 Office Visit Family Medicine Kobi Queen MD [address] [place] [phone] 06/26/2020 Office Visit Endocrinology Diabetes & Kirstie Dhaliwal MD Metabolism [address] [place] [address] [phone] Health Maintenance Due Date Last Done Comments [...] filedocumented in this encounter Visit Diagnoses Diagnosis Cellulitis of second toe of left foot - Primary Cellulitis and abscess of toe, unspecifi ed documented in this encounter Insurance Payer Benefit Plan / Subscriber ID Effective Phone Address T e Group [facility] [id number] 2019-Ruddy candelario [facility] - MEDICARE HMO MANAGED MEDICARE ADVANTAGE documented as of this encounter
--- OUTSIDE RECORDS SUMMARY | 2020-04-13 05:22 | XMS REPORT | Summary of Care ---
:1950 Author Organization [facility] - [facility] Address [address] [place] [address] Care Team Providers Name Role Phone Mabel Queen MD Primary Care Provider Reason for Visit Reason Comments LAB WORK Encounter Details Date Type Department Care Team Description 04/10/2020 Public Service Officer Visit [facility] Health Family Ceferino Thomas ia, DIRECTOR OF PUBLIC RELATIONS [address] [address] Difficulty urinating; [facility], Adc Fam Pob I Leukocytosis, unspecified type [address] [place] [address] Allergies Active Allergy Reactions Severity Noted Date Comments Iodine Hives, Itching, Rash 01/11/2020 Latex Hives, Rash 01/11/2020 Morphine Anaphylaxis 01/11/2020 documented as of this encounter (statuses as of 04/11/2020) Medications Medication Sig Dispensed Refills Start Date End Date Status amLODIPine 10 mg Take 1 tablet by 30 tablet 5 02/10/2020 Active tabletIndications: mouth daily. Essential DOSE INCREASE. hypertension dicyclomine 10 mg Take 1 capsule 30 capsule 0 02/10/2020 Active capsuleIndications: by mouth 4 Intermittent (four) times abdominal pain daily as needed for Abdominal pain. citalopram 10 mg Take 1 tablet by 30 tablet 2 02/10/2020 Active tabletIndications: mouth daily. Anxiety ESTRADIOL VAGINAL Insert 0.01 % 0 Active into vagina. Uses 3 x per week omeprazole 40 mg 0 03/12/2020 Ac tive capsule clindamycin 300 mg Take 1 capsule 30 capsule 0 03/31/2020 110 02/2020 capsuleIndications: by mouth 3 Cellulitis of second (three) times toe of left foot daily for 10 days. Take a daily probiotic while on this medication. 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 documented as of this encounter Last Filed Vital Signs Not on filedocumented in this encounter Plan of Treatment Date Type Specialty Care Team Description 05/11/2020 Office Visit Family Medicine Kobi Queen MD [facility] [place] [address] 06/26/2020 Office Visit Endocrinology Diabetes & SimonsiKirstie riley MD Metabolism [address] [place] [address] Health Maintenance Due Date Last [...] Name Priority Date/Time Associated Diagnosis Comme nts CBC WITH DIFF Routine 04/10/2020 4:25 PM Difficulty u rinating Results for this STRAIGHTENING ROLL OPERATOR Leukocytosis, procedure are in unspecified type the results section. documented in this encounter Results CBC WITH DIFF (04/10/2020 4:25 PM STRAIGHTENING ROLL OPERATOR) Pathologist Sig nature WBC 13.33 (H) 4.30 - 11.10 [facility] 10*3/L [facility] RBC 4.20 3.93 - 5.25 [facility] 10*6/L [facility] HGB 12.1 11.6 - 15.0 [facility] g/dL [facility] HCT 36.2 35.7 - 45.2 % [facility] MCV 86.2 80.6 - 95.5 fL [facility] MCH 28.8 25.9 - 32.8 pg [facility] MCHC 33.4 31.6 - 35.1 [facility] g/dL [facility] RDW-SD 38.5 (L) 39.0 - 49.9 fL [facility] RDW-CV 12.3 12.0 - 15.5 % [facility] PLT 350 166 - 358 [facility] 10*3/L [facility] MPV 10.1 9.5 - 12.9 fL [facility] NRBC/100 WBC 0.0 0.0 - 10.0 /100 [facility] WBCs [facility] NRBC x10^3 <0.01 10*3/L [facility] GRAN MAT (NEUT) % 73.2 % [facility] IMM GRAN % 0.50 % [facility] LYMPH % 18.7 % [facility] MONO % 5.9 % [facility] EOS % 1.2 % [facility] BASO % 0.5 % [facility] GRAN MAT x10^3(ANC) 9.76 (H) 1.88 - 7.09 [facility] 10*3/uL [facility] IMM GRAN x10^3 0.06 0.00 - 0.06 [facility] 10*3/uL [facility] LYMPH x10^3 2.49 1.32 - 3.29 [facility] 10*3/uL [facility] MONO x10^3 0.79 0.33 - 0.92 [facility] 10*3/uL [facility] EOS x10^3 0.16 0.03 - 0.39 [facility] 10*3/uL [facility] BASO x10^3 0.07 0.01 - 0.07 [facility] 10*3/uL [facility] Specimen Blood Performing Organization Address City/State/Zipcode Phone Number [facility] CLIA: [id number] [place] [address] documented in this encounter Visit Diagnoses Diagnosis Difficulty urinating Other symptoms involving urinary system Leukocytosis, unspecified type documented in this encounter Insurance Payer Benefit Plan / Subscriber ID Effective Phone Address T ype Group Dates [facility] [id number] 2019-Ruddy candelario [facility] documented as of this encounter
--- OUTSIDE RECORDS SUMMARY | 2020-04-13 05:22 | XMS REPORT | Summary of Care ---
:1950 Author Organization [facility] - Health Address [address] [place] [address] Care Team Providers Name Role Phone Mabel Queen MD Primary Care Provider Encounter Details Date Type Department Care Team Description 04/06/2020 Orders Only [facility] Doctor Unassigned, No [address] [facility] Name [place] [phone] Allergies Active Allergy Reactions Severity Noted Date Comments Iodine Hives, Itching, Rash 01/11/2020 Latex Hives, Rash 01/11/2020 Morphine Anaphylaxis 01/11/2020 documented as of this encounter (statuses as of 04/06/2020) Medications Medication Sig Dispensed Refills Start Date [...] capsule clindamycin 300 mg Take 1 capsule by 30 capsule 0 03/31/2020 1 06/10/2019 Active capsuleIndications: mouth 3 (three) Cellulitis of second times daily for toe of left foot 10 days. Take a daily probiotic while on this medication. 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 documented as of this encounter Last Filed Vital Signs Not on filedocumented in this encounter Plan of Treatment Date Type Specialty Care Team Description 04/06/2020 Appointment Radiology Kirstie Contreras MD [address] [place] [address] [phone] 04/10/2020 Counterperson Visit Family Medicine Lab, Adc Fam Pob I 05/11/2020 Office Visit Family Medicine Kobi Queen MD [address] [place] [phone] 06/26/2020 Office Visit Endocrinology Diabetes & Kesired Kirstie gee MD Metabolism [address] [place], [place] [address] Health Maintenance Due Date Last Done Comments [...] Diagnosis Comme nts ASSIGNMENT OF BENEFITS Routine 04/06/2020 12:45 PM TICKET TAKER FERRYBOAT documented in this encounter Results Not on filedocumented in this encounter Insurance Payer Benefit Plan / Subscriber ID Effective Phone Address T ype Group Dates [facility] [id number] 2019-Prese dicare Adv HEALTHCARE - MEDICARE nt O MANAGED MEDICARE ADVANTAGE documented as of this encounter
--- OUTSIDE RECORDS SUMMARY | 2020-04-13 05:22 | XMS REPORT | Summary of Care ---
:1950 Author Organization [facility] - [facility] Address [address] [place] [address] Care Team Providers Name Role Phone Mabel Queen MD Primary Care Provider Reason for Visit Reason Comments Results per pt Encounter Details Date Type Department Care Team Description 04/10/2020 Telephone [facility] Kobi Queen R esults (per pt) Medicine - Eduar CARRERO [address] [place] [address] Dr moreland [address] [place] [address] [place] [address] [place], [place] [phone] Allergies Active Allergy Reactions Severity Noted Date Comments Iodine Hives, Itching, Rash 01/11/2020 Latex Hives, Rash 01/11/2020 Morphine Anaphylaxis 01/11/2020 documented as of this encounter (statuses as of 04/10/2020) Medications Medication Sig Dispensed Refills Start Date [...] as of this encounter (statuses as of 04/10/2020) Active Problems Problem Noted Date Hyperthyroidism 02/17/2020 [...] as of this encounter (statuses as of 04/10/2020) Immunizations Name Administration Dates Next Due Influenza [...] with No / Unsure 04/06/2020 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 documented as of this encounter Last Filed Vital Signs Not on filedocumented in this encounter Miscellaneous Notes Telephone Encounter - Kobi Queen MD - 04/10/2020 5:46 PM CSTShe had the lab work today. A results message will be sent. elephone Encounter - Karina Paulino - 04/10/2020 4:45 PM CSTPlease review elephone Encounter - Myriam Goode - 04/10/2020 4:15 PM CSTPatient is returning nurse/provider call. Please advise. documented in this encounter Plan of Treatment Date Type Specialty Care Team Description 05/11/2020 Office Visit Family Medicine Kobi Queen MD [address] [place] [phone] 06/26/2020 Office Visit Endocrinology Diabetes & Simonsired Kirstie gee MD Metabolism [address] [place], [place] [phone] Health Maintenance Due Date Last Done Comments [...] T e Group Dates [facility] [id number] 2019-Ruddy candelario Adv HEALTHCARE [facility] documented as of this encounter
--- OUTSIDE RECORDS SUMMARY | 2020-04-13 05:22 | XMS REPORT | Summary of Care ---
:1950 Author Organization [facility] Address [address] [place] [address] Care Team Providers Name Role Phone Mabel Queen MD Primary Care Provider Reason for Referral Radiology Services (Routine) Status Reason Specialty Diagnoses / Referred By Referred To Procedures Contact Contact Closed Diagnostic Diagnoses Hyperthyroidism Multiple thyroid nodules Kirstie Contreras, Radiology Procedures US HEAD NECK [address] [place] [address] Reason for Visit Radiology Services (Routine) Status Reason Specialty Diagnoses / Referred By Referred To Procedures Contact Contact Closed Diagnostic Diagnoses Hyperthyroidism Multiple thyroid nodules Kirstie Contreras, Radiology Procedures US HEAD NECK [address] [place] [address] Encounter Details Date Type Department Care Team Description 04/06/2020 Hospital Encounter [facility] Kirstie Quiroz MD Arrived [facility] [address] [place] [address] [place] [address] [place] [address] [phone] Allergies Active Allergy Reactions Severity Noted Date Comments Iodine Hives, Itching, Rash 01/11/2020 Latex Hives, Rash 01/11/2020 Morphine Anaphylaxis 01/11/2020 documented as of this encounter (statuses as of 04/07/2020) Medications Medication Sig Dispensed Refills Start Date [...] as of this encounter (statuses as of 04/07/2020) Active Problems Problem Noted Date Hyperthyroidism 02/17/2020 [...] as of this encounter (statuses as of 04/07/2020) Immunizations Name Administration Dates Next Due Influenza [...] with No / Unsure 04/06/2020 12:45 PM 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 documented as of this encounter Last Filed Vital Signs Not on filedocumented in this encounter Plan of Treatment Date Type Specialty Care Team Description 04/10/2020 Clinical Nurse Occupational Medicine Visit Family Medicine Lab, Adc Fam Pob I 05/11/2020 Office Visit Family Medicine Kobi Queen MD [address] [place] [phone] 06/26/2020 Office Visit Endocrinology Diabetes & Kesired Kirstie gee MD Metabolism [address] [place] [address] [phone] Health Maintenance Due Date Last Done Comments [...] Priority Date/Time Associated Diagnosis Comme nts US HEAD NECK Routine 04/06/2020 1:42 PM Hyperthyroid ism Results for this DESIGN TECH Multiple thyroid procedure a re in the nodules results section . documented in this encounter Results US HEAD NECK (04/06/2020 1:42 PM DESIGN TECH) Specimen Impressions Performed At PACS/VR/DOSE Nodule 3 in the right thyroid lobe measu res up to 1.4 cm meets TR 4 risk criteria. Recommend follow-up ultrasound in one year (April 2021) per ACR guidelines. Nodule 1 in the right thyroid lobe measuring up to 1.5 cm meets TR 1 risk criteria. No further follow-up is recomm ended. Nodule 2 in the right thyroid lobe measuring up to 3.8 cm meets TR 2 risk criteria. No further follow-up is recomm ended. Nodule 4 measuring up to 2.3 cm in the l eft thyroid node meets TR 2 risk criteria. No further follow-up is recomm ended. --- ----- ACR TI-RADS recommendations * TR5 (>/=7 points) -FNA if >/= 1cm, follow-up if 0. 5 -0.9 cm every year for 5 years * TR4 (4-6 points) -FNA if >/= 1.5cm, follow-up if 1 -1.4 cm in 1, 2, 3 and 5 years * TR3 (3 points)-FNA if >/= 2.5cm, follow-up if 1.5 -2.4 cm in 1, 3 and 5 years * TR2 (2 points) & TR1 (0 points) -No FNA or follow-up Preliminary Report Dictated by Resident: Asif Buenrostro I, Danielle Yoder MD., have reviewed this stud y and agree with the above report. Narrative Performed At EXAM: US HEAD NECK PACS/VR/DOSE HISTORY: 70 years-old Female presenting with thyroid n odules and low TSH TECHNIQUE: Ultrasound examination of the thyroid and a djacent soft tissues was performed. COMPARISON: None available FINDINGS: The thyroid gland is slightly enlarged d ue to multiple nodules, with heterogeneous echotexture and normal c olor Doppler flow. The isthmus measures 0.2 cm. The right thyroid lobe measures 5.8 cm x 2.17 x 2.7 cm , and the volume is 22.2 mL. The left thyroid lobe measures 5.1 cm x 2.3 cm x 2.1 c m, and the volume is 12.9 mL. The estimated total number of nodules >/ =1cm is 4. The number of spongiform nodules >/=2cm not described below (TR1) is 0. The number of mixed cystic and solid nodules >/=1.5cm not described below (TR2) is 0. Nodule#: 1 1.5 cm x 1.0 cm x 1.2 cm * Maximum size:1.5 cm * Location: Upper - Right thyroid lobe * Composition: Cystic/almost completel y cystic (0) * Echogenicity: Anechoic (0) * Shape: Not taller than wide (0) * Margins: Ill defined (0) * Echogenic foci: None (0) * ACR TI-RADS total points: 0 * ACR TI-RADS risk category: TR 1 (0 p oints) * ACR TI-RADS recommendation: No furth er follow-up Nodule#: 2 3.8 cm x 1.7 cm x 2.7 cm * Maximum size:3.8 cm * Location: Mid - Right thyroid lobe * Composition: Mixed cystic/solid (1) * Echogenicity: Hyperechoic or isoecho ic (1) * Shape: Not taller than wide (0) * Margins: Ill defined (0) * Echogenic foci: None (0) * * ACR TI-RADS total points: 2 * ACR TI-RADS risk category: TR 2 (2 p oints) * ACR TI-RADS recommendation: No furth er follow-up ___ Nodule#: 3 1.4 cm x 0.9 cm x 1.2 cm * Maximum size:1.4 cm * Location: Lower - Right thyroid lobe * Composition: Solid/almost completely solid (2) * Echogenicity: Hyperechoic or isoecho ic (1) * Shape: Not taller than wide (0) * Margins: Ill defined (0) * Echogenic foci: Macrocalcifications (1) * ACR TI-RADS total points: 4 * ACR TI-RADS risk category: TR 4 (4-6 points) * ACR TI-RADS recommendation: Follow-u p ultrasound in 1 year ___ Nodule#: 4 2.3 cm x 1.0 cm x 1.5 cm * Maximum size:2.3 cm * Location: Mid - Left thyroid lobe * Composition: Mixed cystic/solid (1) * Echogenicity: Hyperechoic or isoecho ic (1) * Shape: Not taller than wide (0) * Margins: Ill defined (0) * Echogenic foci: None (0) * ACR TI-RADS total points: 2 * ACR TI-RADS risk category: TR 2 (2 p oints) * ACR TI-RADS recommendation: No furth er follow-up LYMPH NODES: No enlarged or morphologica lly suspicious lymph nodes are seen. Procedure Note [facility], Radiant Results Inft User - 2019 3:03 PM DESIGN TECH EXAM: US HEAD NECK HISTORY: 70 years-old Female presenting with thyroid nodules and low TSH TECHNIQUE: Ultrasound examination of the thyroid and adjacent soft tissues was performed. COMPARISON: None available FINDINGS: The thyroid gland is slightly enlarged d ue to multiple nodules, with heterogeneous echotexture and normal co marcial Doppler flow. The isthmus measures 0.2 cm. The right thyroid lobe measures 5.8 cm x 2.17 x 2.7 cm, and the volume is 22.2 mL. The left thyroid lobe measures 5.1 cm x 2.3 cm x 2.1 cm, and the volume is 12.9 mL. The estimated total number of nodules >/ =1cm is 4. The number of spongiform nodules >/=2cm not described below (TR1) is 0. The number of mixed cystic and solid nod ules >/=1.5cm not described below (TR2) is 0. Nodule#: 1 1.5 cm x 1.0 cm x 1.2 cm * Maximum size:1.5 cm * Location: Upper - Right thyroid lobe * Composition: Cystic/almost completely cystic (0) * Echogenicity: Anechoic (0) * Shape: Not taller than wide (0) * Margins: Ill defined (0) * Echogenic foci: None (0) * ACR TI-RADS total points: 0 * ACR TI-RADS risk category: TR 1 (0 po ints) * ACR TI-RADS recommendation: No furthe r follow-up Nodule#: 2 3.8 cm x 1.7 cm x 2.7 cm * Maximum size:3.8 cm * Location: Mid - Right thyroid lobe * Composition: Mixed cystic/solid (1) * Echogenicity: Hyperechoic or isoechoi c (1) * Shape: Not taller than wide (0) * Margins: Ill defined (0) * Echogenic foci: None (0) * * ACR TI-RADS total points: 2 * ACR TI-RADS risk category: TR 2 (2 po ints) * ACR TI-RADS recommendation: No furthe r follow-up Nodule#: 3 1.4 cm x 0.9 cm x 1.2 cm * Maximum size:1.4 cm * Location: Lower - Right thyroid lobe * Composition: Solid/almost completely solid (2) * Echogenicity: Hyperechoic or isoechoi c (1) * Shape: Not taller than wide (0) * Margins: Ill defined (0) * Echogenic foci: Macrocalcifications ( 1) * ACR TI-RADS total points: 4 * ACR TI-RADS risk category: TR 4 (4-6 points) * ACR TI-RADS recommendation: Follow-up ultrasound in 1 year Nodule#: 4 2.3 cm x 1.0 cm x 1.5 cm * Maximum size:2.3 cm * Location: Mid - Left thyroid lobe * Composition: Mixed cystic/solid (1) * Echogenicity: Hyperechoic or isoechoi c (1) * Shape: Not taller than wide (0) * Margins: Ill defined (0) * Echogenic foci: None (0) * ACR TI-RADS total points: 2 * ACR TI-RADS risk category: TR 2 (2 po ints) * ACR TI-RADS recommendation: No furthe r follow-up LYMPH NODES: No enlarged or morphologica lly suspicious lymph nodes are seen. IMPRESSION Nodule 3 in the right thyroid lobe measu res up to 1.4 cm meets TR 4 risk criteria. Recommend follow-up ultrasound in one year (April 2021) per ACR guidelines. Nodule 1 in the right thyroid lobe measu ring up to 1.5 cm meets TR 1 risk criteria. No further follow-up is recomm ended. Nodule 2 in the right thyroid lobe measu ring up to 3.8 cm meets TR 2 risk criteria. No further follow-up is recomm ended. Nodule 4 measuring up to 2.3 cm in the l eft thyroid node meets TR 2 risk criteria. No further follow-up is recomm ended. ----- ACR TI-RADS recommendations * TR5 (>/=7 points) -FNA if >/= 1cm, fo llow-up if 0.5 -0.9 cm every year for 5 years * TR4 (4-6 points) -FNA if >/= 1.5cm, f ollow-up if 1 -1.4 cm in 1, 2, 3 and 5 years * TR3 (3 points)-FNA if >/= 2.5cm, foll ow-up if 1.5 -2.4 cm in 1, 3 and 5 years * TR2 (2 points) & TR1 (0 points) -No F NA or follow-up Preliminary Report Dictated by Resident: Asif Buenrostro I, Danielle Yoder MD., have revie wed this study and agree with the above report. Performing Organization Address City/State/Zipcode Phone Number PACS/VR/DOSE documented in this encounter Visit Diagnoses Diagnosis Hyperthyroidism Thyrotoxicosis without mention of goiter or other cause, without mention of thyrotoxic crisis or storm Multiple thyroid nodules Nontoxic multinodular goiter documented in this encounter Insurance Payer Benefit Plan / Subscriber ID Effective Phone Address T ype Group Dates [facility]/[place] [id number] 2019-Ruddy candelario [facility] - MEDICARE HMO MANAGED MEDICARE ADVANTAGE documented as of this encounter
--- OUTSIDE RECORDS SUMMARY | 2020-04-13 05:22 | XMS REPORT | Summary of Care ---
:1950 Author Organization [facility] Address [address] [place] [address] Care Team Providers Name Role Phone Mabel Queen MD Primary Care Provider Reason for Visit Reason Comments Forms surgical clearance Encounter Details Date Type Department Care Team Description 04/04/2020 Telephone [facility] Pediatric Kobi Queen , Forms (surgical and Adult Primary MD clearance) Care- [address] [place] [place] [address], [address] [address] [place], [place] [phone] [address] [phone] Allergies Active Allergy Reactions Severity Noted Date [...] with No / Unsure 04/06/2020 12:45 PM TECHNICAL SOLUTIONS DIRECTOR someone who was confirmed or 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 documented as of this encounter Last Filed Vital Signs Not on filedocumented in this encounter Miscellaneous Notes Telephone Encounter - PaulinoKarina A - 04/06/2020 1:30 PM CSTMelissa notified and verbalized understanding elephone Encounter - Karina Paulino - 04/05/2020 2:09 PM CSTAttempted to contact patient, left message on voicemail elephone Encounter - Kobi Queen MD - 04/05/2020 12:20 PM CSTPlease update them that the patient has toe cellulitis w/ leukocytosis. Once she completes her antibiotic and has her repeat CBC I can clear her. She will finish the antibiotic this week. elephone Encounter - Karina Paulino - 04/05/2020 10:13 AM CSTPlease review elephone Encounter - Myriam Goode - 04/04/2020 3:15 PM CSTMelissa is checking status of surgical clearance forms. Patient has had appointment but they have not received forms. Please advise. documented in this encounter Plan of Treatment Date Type Specialty Care Team Description 04/10/2020 Pamphlet Distributor Visit Family Medicine Lab, Adc Fam Pob I 05/11/2020 Office Visit Family Medicine Kobi Queen MD [address] [place] [phone] 06/26/2020 Office Visit Endocrinology Diabetes & Kesired Kirstie gee MD Metabolism [address] [place] [address] Health Maintenance Due Date Last [...] Address T ype Group Dates [place] [id number] 2019-[facility] - MEDICARE nt HMO MANAGED MEDICARE ADVANTAGE documented as of this encounter
[2020-04-13 05:57] LABS: Absolute Lymphocytes (CBC) 1.6 K/uL (0.7-4.9); Basophils % 0.7 % (0-1.3); Lymphocytes % 11.7 % (15.3-44.8); MPV 7.8 fL (7.6-11.3); RBC Red Blood Cell Count 4.08 M/uL (3.86-4.86)
[2020-04-13 06:34] LABS: Albumin 3.2 g/dL (3.4-5.0); Bilirubin Direct 0.1 mg/dL (0-0.2); Bilirubin Total 0.5 mg/dL (0.2-1.0); Potassium 4.4 mmol/L (3.5-5.1); Protein, Total 7.4 g/dL (6.4-8.2)
[2020-04-13] MEDS ORDERED: CEFTRIAXONE/SWI 1gm 1 GM/10 ML SYR ONE (06:51)
[2020-04-13 06:56] LABS: Urine Blood 2+ (NEG); Urine Glucose NEGATIVE (NEG); Urine Protein 2+ (NEG)
[2020-04-13 07:05] LABS: Urine Bacteria >50 /HPF (<20); Urine Culture Reflex Order NOT NEEDED; Urine Mucus A /HPF (NONE SEEN); Urine RBC <5 /HPF (NONE SEEN)
[2020-04-13] MEDS ORDERED: HYDROCODONE/APAP 10/325 TAB ONE (08:59)
[2020-04-13] MEDS ORDERED: MORPHINE 2 MG/ML SYR ONE (11:18)
[2020-04-13] MEDS ORDERED: MEPERIDINE HCL 25 MG/ML SYR ONE ×2 (11:27→14:32)
--- NOTE | 2020-04-13 12:46 | RAD REPORT ---
CLINICAL HISTORY: Abdominal pain. COMPARISON: CT abdomen and pelvis without contrast 10/10/2013. TECHNIQUE: Axial unenhanced CT imaging of the abdomen and pelvis performed. Reformatted coronal and sagittal images reviewed. A dose reduction technique was utilized with automated exposure control according to patient size. FINDINGS: Clear lung bases. Heart is normal in size. Liver is enlarged to approximately 20 cm. No liver mass or biliary dilatation. The gallbladder has be en resected. Normal spleen attenuation. The spleen is enlarged to approximately 15.6 cm. There is fat ty atrophy of the pancreas. Normal right adrenal gland. Left adrenal gland has been resected. The lef t kidney is surgically absent. There is significant dilatation of the right renal pelvis. AP pelvis i s 3.7 cm. There is right perinephric edema. There is moderate dilatation of the right ureter diffusel y with no distal obstructing ureteral stone. There is severe laxity of the pelvic floor with extensio n of the base of the bladder below the level of the symphysis pubis. There is extension of the distal most right ureter below the level of the symphysis pubis. The aorta is mildly atherosclerotic. Normal caliber aorta and inferior vena cava. No ventricular lymp hadenopathy. Unremarkable stomach. The small bowel loops appear normal. Appendix is not visualized. C olon is normal in caliber. There is extension of the mid sigmoid through a pelvic floor defect which extends into the left labia. There is no ascites. No free air. There is a ventral abdominal midline h ernia mesh. No recurrent hernia. There is no bladder filling defect. There is no pelvic free fluid. Uterus is surgically absent. Moderate lower thoracic and mild lumbar spondylosis. Bony pelvis appears intact. Normal hips. IMPRESSION: 1. 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 The pe lvic floor defect is also resulting in downward displacement of the bladder and distal right ureter w hich is tethered into the right side of the defect causing significant proximal right hydronephrosis and obstructive uropathy. 2. Status post left nephrectomy and left adrenalectomy. 3. Hepatosplenomegaly. Electronically signed by: Kiera Crockett DO 04/13/2020 6:46 AM ASSISTANT HEALTH EDUCATOR Due to temporary technical issues with the PACS/Fluency reporting system, reports are being signed by the in house radiologists without review as a courtesy to insure prompt reporting. The interpreting radiologist is fully responsible for the content of the report.
--- NOTE | 2020-04-13 15:38 | EDPHYS ---
Physician Documentation [facility] [place], [place] Name: Samantha Green Age: 70 yrs Sex: Female : 1950 Arrival Date: 04/13/2020 Time: 05:13 Bed 3 Private MD: ED Physician Casey Jones HPI: 04/13 05:17 This 70 yrs old Female presents to ER via Unassigned with complaints of rn abdominal pain. 05:17 The patient presents with abdominal pain in the right upper quadrant, right lower rn quadrant. Onset: The symptoms/episode began/occurred at an unknown time. The symptoms do not radiate. Associated signs and symptoms: Pertinent positives: nausea, Pertinent negatives: blood in stools, chest pain, constipation, diarrhea, dysuria, fever, shortness of breath. The symptoms are described as achy. Modifying factors: The symptoms are alleviated by nothing, the symptoms are aggravated by touching the area. Severity of pain: At its worst the pain was moderate in the emergency department the pain is unchanged. The patient has experienced similar episodes in the past. The patient has been recently seen by a physician:. Reports chronic abd pain for about 2 years, has been back and forth to GI and [facility], has had multiple upper and Lower GI studies without diagnosis, has had MRI and CT of abdomen. Recently seen by [facility] and told "had an infection", given abx, then repeat bloodwork showed "still had infection", given other abx. Reports still having right sided abd pain. Told by GI that common bile duct is dilated and needs more studies, is in line to do so. Reports nausea and increased pain tonight, came in to check if still had bacterial infection.. Historical: - Allergies: 05:15 Morphine; rr5 05:15 Latex, Natural Rubber; rr5 05:57 Iodine; rr5 - Home Meds: 05:31 citalopram 10 mg tab 1 tab once daily [Active]; dicyclomine 10 mg Oral cap 1 cap 4 wh times per day [Active]; estradiol vaginal vaginal [Active]; amlodipine 10 mg tab 1 tab once daily [Active]; omeprazole 40 mg Oral cpDR 1 cap once daily [Active]; - PMHx: 05:15 hyperthyroidism; kidney cancer; liver cyst; bladder swelling; rr5 - PSHx: 05:15 Cholecystectomy; left kidney removed; Appendectomy; Hysterectomy; Hernia repair; rr5 - Immunization history:: Adult Immunizations up to date. - Social history:: Smoking status: unknown. - Family history:: not pertinent. - Hospitalizations: : No recent hospitalization is reported. ROS: 05:17 Constitutional: Negative for fever, chills, and weight loss, Eyes: Negative for injury, rn pain, redness, and discharge, Neck: Negative for injury, pain, and swelling, Cardiovascular: Negative for chest pain, palpitations, and edema, Respiratory: Negative for shortness of breath, cough, wheezing, and pleuritic chest pain, Abdomen/GI: Negative for diarrhea, and constipation, blood in stool : Negative for injury, bleeding, discharge, and swelling, MS/Extremity: Negative for injury and deformity, Skin: Negative for injury, rash, and discoloration, Neuro: Negative for headache, weakness, numbness, tingling, and seizure. Exam: 05:17 Constitutional: This is a well developed, well nourished patient who is awake, alert, rn and in no acute distress. Head/Face: Normocephalic, atraumatic. Cardiovascular: Regular rate and rhythm. No pulse deficits. Respiratory: Speaking full sentences. No increased work of breathing, no retractions or nasal flaring. Abdomen/GI: soft, mild RUQ and RLQ tenderness, no rebound Skin: Warm, dry MS/ Extremity: Pulses equal, no cyanosis. Neurovascular intact. Full, normal range of motion. Equal circumference. No signs of cellulitis of left foot/toes. Neuro: Awake and alert, GCS 15, oriented to person, place, time, and situation. Cranial nerves II-XII grossly intact. Motor strength 5/5 in all extremities. Sensory grossly intact. Vital Signs: 05:20 BP 156 / 76; Pulse 98; Resp 17; Temp 98.8; Pulse Ox 100% ; Weight 104.33 kg; Height 5 rr5 ft. 10 in. (177.80 cm); Pain 7/10; 06:00 BP 125 / 65; Pulse 76; Resp 19; Pulse Ox 99% ; rr5 08:37 BP 135 / 74; Pulse 81; Resp 16; Temp 98.0; Pulse Ox 100% on R/A; Pain 7/10; iw 13:56 BP 118 / 54; Pulse 88; Resp 16; Pulse Ox 98% ; Pain 5/10; iw 14:00 BP 118 / 54; Pulse 87; Resp 16; Pulse Ox 99% on R/A; sg 05:20 Body Mass Index 33.00 (104.33 kg, 177.80 cm) rr5 MDM: 05:16 Patient medically screened. rn 15:42 Data reviewed: vital signs. ED course: after discussion with Dr. estrella and Dr. yana Pan, patient is safe and agreeable to be discharged home with follow-up. She was happy with her care in the ED and the interventions given.. 04/13 05:17 Order name: Basic Metabolic Panel; Complete Time: 06:40 rn 04/13 05:17 Order name: CBC with Diff; Complete Time: 06:05 rn 04/13 05:17 Order name: Hepatic Function; Complete Time: 06:40 rn 04/13 05:17 Order name: Lipase; Complete Time: 06:40 rn 04/13 05:17 Order name: Procalcitonin; Complete Time: 07:21 rn 04/13 05:59 Order name: CREATININE WHOLE BLOOD; Complete Time: 06:05 EDMS 04/13 06:00 Order name: Abdomen ; Complete Time: 15:18 EDMS 04/13 06:23 Order name: Urine Microscopic Only; Complete Time: 07:21 rr5 04/13 06:23 Order name: Urine Culture 04/13 06:40 Order name: Urine Dipstick--Ancillary (enter results) ri 04/13 06:41 Order name: Urine Dipstick-Ancillary; Complete Time: 07:00 EDMS 04/13 05:17 Order name: IV Saline Lock; Complete Time: 05:44 rn 04/13 05:17 Order name: Labs collected and sent; Complete Time: 05:44 rn 04/13 05:17 Order name: Urine Dipstick-Ancillary (obtain specimen); Complete Time: 06:23 rn Administered Medications: 06:41 Drug: Rocephin 1 grams Route: IV; Rate: calculated rate; Site: right forearm; rr5 07:14 Follow up: Response: No adverse reaction; IV Status: Completed infusion; IV Intake: [id number] 09:00 Drug: [place] 10 mg-325 mg 1 tabs Route: PO; iw 11:00 Follow up: Response: No adverse reaction sg 11:24 Drug: Demerol 25 mg Route: IVP; Site: right antecubital; sg 11:55 Follow up: Response: No adverse reaction; Pain is decreased sg 14:24 Drug: Demerol 12.5 mg Route: IVP; Site: right antecubital; iw 15:40 Follow up: Response: No adverse reaction; Pain is decreased sg Disposition: 04/13/20 15:37 Discharged to Home. Impression: Abdominal and pelvic pain, Sigmoid hernia into labia, UTI - chronic, Hydronephrosis on right. - Condition is Stable. - Prescriptions for Tylenol- Codeine #3 300-30 mg Oral Tablet - take 2 tablets by ORAL route every 4-6 hours As needed Take one or two tablets as needed for pain; 12 tablet. Zofran 4 mg Oral Tablet - take 1 tablet by ORAL route every 12 hours As needed; 6 tablet. Cipro 500 mg Oral Tablet - take 1 tablet by ORAL route every 12 hours for 7 days; 14 tablet. Miralax 17 gram/dose Oral - take 1 packet by ORAL route once daily dilute powder in 8 ounces of water or juice; 1 box. - Medication Reconciliation Form, Thank You Letter, Antibiotic Education, Prescription Opioid Use form. - Follow up: Private Physician; When: 2 - 3 days; Reason: If symptoms return, Further diagnostic work-up, Recheck today's complaints, Continuance of care, Re-evaluation by your physician. - Problem is new. - Symptoms have improved. Signatures: Dispatcher [employer] EDMO Oscar Pacheco RN RN sg Rittger, Kevin, MD MD kdr Williams, Irene RN RN Sly Membreno MD MD rn Calderon, Audri RN RN aa5 Adam Esposito Raymond, RN RN rr5 Corrections: (The following items were deleted from the chart) 06:00 05:17 Abdomen Pelvis W [id number] ordered. [facility] 15:55 15:37 04/13/2020 15:37 Discharged to Home. Impression: Abdominal and pelvic pain; aa5 Sigmoid hernia into labia, UTI - chronic; Hydronephrosis on right. Condition is Stable. Forms are Medication Reconciliation Form, Thank You Letter, Antibiotic Education, Prescription Opioid Use. Follow up: Private Physician; When: 2 - 3 days; Reason: If symptoms return, Further diagnostic work-up, Recheck today's complaints, Continuance of care, Re-evaluation by your physician. Problem is new. Symptoms have improved. kdr
--- NOTE | 2020-04-13 15:38 | ER ---
Nurse's Notes [facility] Name: Samantha Green Age: 70 yrs Sex: Female : 1950 Arrival Date: 04/13/2020 Time: 05:13 Bed 3 Private MD: Diagnosis: Abdominal and pelvic pain;Sigmoid hernia into labia, UTI - chronic;Hydronephrosis on right Presentation: 04/13 05:20 Chief complaint: EMS states: patient of right kidney pain going to her hip and rr5 bacterial infection to her leg. Coronavirus screen: Client denies travel out of the [place] in the last 14 days. At this time, the client does not indicate any symptoms associated with coronavirus-19. Ebola Screen: Patient negative for fever greater than or equal to 101.5 degrees Fahrenheit, and additional compatible Ebola Virus Disease symptoms Patient denies exposure to infectious person. Patient denies travel to an Ebola-affected area in the 21 days before illness onset. Initial Sepsis Screen: Does the patient meet any 2 criteria? No. Patient's initial sepsis screen is negative. Does the patient have a suspected source of infection? No. Patient's initial sepsis screen is negative. Risk Assessment: Do you want to hurt yourself or someone else? Patient reports no desire to harm self or others. Note patient stated the right flank pain started years ago but now it is worst and i feel nauseated too. Onset of symptoms was April 13, 2020. 05:20 Method Of Arrival: EMS: [facility] rr5 05:20 Acuity: RADHA 3 rr5 Historical: - Allergies: 05:15 Morphine; rr5 05:15 Latex, Natural Rubber; rr5 05:57 Iodine; rr5 - Home Meds: 05:31 citalopram 10 mg tab 1 tab once daily [Active]; dicyclomine 10 mg Oral cap 1 cap 4 wh times per day [Active]; estradiol vaginal vaginal [Active]; amlodipine 10 mg tab 1 tab once daily [Active]; omeprazole 40 mg Oral cpDR 1 cap once daily [Active]; - PMHx: 05:15 hyperthyroidism; kidney cancer; liver cyst; bladder swelling; rr5 - PSHx: 05:15 Cholecystectomy; left kidney removed; Appendectomy; Hysterectomy; Hernia repair; rr5 - Immunization history:: Adult Immunizations up to date. - Social history:: Smoking status: unknown. - Family history:: not pertinent. - Hospitalizations: : No recent hospitalization is reported. Screenin:00 Abuse screen: Denies threats or abuse. Denies injuries from another. Nutritional rr5 screening: No deficits noted. Tuberculosis screening: No symptoms or risk factors identified. Fall Risk IV access (20 points). Total Woodall Fall Scale indicates No Risk (0-24 pts). Assessment: 05:20 General: Appears in no apparent distress. comfortable, Behavior is calm, cooperative, rr5 appropriate for age. 05:20 Pain: Complains of pain in right flank Pain currently is 7 out of 10 on a pain scale. rr5 Quality of pain is described as aching, Pain began gradually, Is intermittent. Neuro: Level of Consciousness is awake, alert, obeys commands, Oriented to person, place, time. Cardiovascular: Capillary refill < 3 seconds Patient's skin is warm and dry. Respiratory: Airway is patent Respiratory effort is even, unlabored, Respiratory pattern is regular, symmetrical. GI: Abdomen is round non-distended. : Reports pain in right flank(s). EENT: No signs and/or symptoms were reported regarding the EENT system. Derm: Skin is intact, is healthy with good turgor, Skin temperature is warm. Musculoskeletal: Capillary refill < 3 seconds. 08:38 Reassessment: Patient appears in no apparent distress at this time. Patient and/or iw family updated on plan of care and expected duration. Pain level reassessed. Patient is alert, oriented x 3, equal unlabored respirations, skin warm/dry/pink. pt requesting pain medicine for pain level 12/09. 11:04 Reassessment: Patient appears in no apparent distress at this time. Patient and/or iw family updated on plan of care and expected duration. Pain level reassessed. Patient is alert, oriented x 3, equal unlabored respirations, skin warm/dry/pink. Dr. Jones updated pt on POC, awaiting consult by Dr. Martinez. 13:55 Reassessment: Patient appears in no apparent distress at this time. Patient and/or iw family updated on plan of care and expected duration. Pain level reassessed. pt states pain is creeping back up, now a 10/09, states Demerol helped get her some sleep. 14:12 Reassessment: waiting for consult with urology before we are able to admit pt. iw 14:30 Reassessment: awaiting dispo for pt at this time, awaiting call back from consulting sg providers. Vital Signs: 05:20 BP 156 / 76; Pulse 98; Resp 17; Temp 98.8; Pulse Ox 100% ; Weight 104.33 kg; Height 5 rr5 ft. 10 in. (177.80 cm); Pain 7/10; 06:00 BP 125 / 65; Pulse 76; Resp 19; Pulse Ox 99% ; rr5 08:37 BP 135 / 74; Pulse 81; Resp 16; Temp 98.0; Pulse Ox 100% on R/A; Pain 7/10; iw 13:56 BP 118 / 54; Pulse 88; Resp 16; Pulse Ox 98% ; Pain 5/10; iw 14:00 BP 118 / 54; Pulse 87; Resp 16; Pulse Ox 99% on R/A; sg 05:20 Body Mass Index 33.00 (104.33 kg, 177.80 cm) rr5 ED Course: 05:13 Patient arrived in ED. cl3 05:15 Patient has correct armband on for positive identification. Bed in low position. Call rr5 light in reach. 05:16 Sly Membreno MD is Attending Physician. rn 05:17 Arm band placed on right wrist. rr5 05:19 Brian Saleem, JAMISON is Primary Nurse. rr5 05:24 Triage completed. rr5 05:44 Inserted saline lock: 20 gauge in right forearm, using aseptic technique. Blood rr5 collected. 06:25 Abdomen In Process Unspecified. EDMS 07:18 Attending Physician role handed off by Sly Membreno MD kdr 07:18 Casey Jones MD is Attending Physician. kdr 08:52 Primary Nurse role handed off by Brian Saleem, RN iw 08:52 Reanna Alanis RN is Primary Nurse. iw 15:40 No provider procedures requiring assistance completed. IV discontinued, intact, sg bleeding controlled, No redness/swelling at site. Pressure dressing applied. Administered Medications: 06:41 Drug: Rocephin 1 grams Route: IV; Rate: calculated rate; Site: right forearm; rr5 07:14 Follow up: Response: No adverse reaction; IV Status: Completed infusion; IV Intake: [id number] 09:00 Drug: [place] 10 mg-325 mg 1 tabs Route: PO; iw 11:00 Follow up: Response: No adverse reaction sg 11:24 Drug: Demerol 25 mg Route: IVP; Site: right antecubital; sg 11:55 Follow up: Response: No adverse reaction; Pain is decreased sg 14:24 Drug: Demerol 12.5 mg Route: IVP; Site: right antecubital; iw 15:40 Follow up: Response: No adverse reaction; Pain is decreased sg Intake: 07:14 IV: 10ml; Total: 10ml. rr5 Outcome: 15:37 Discharge ordered by . kdr 15:40 Discharged to home ambulatory. sg 15:40 Condition: good 15:40 Discharge instructions given to patient, family, Instructed on discharge instructions, follow up and referral plans. medication usage, safety practices, Demonstrated understanding of instructions, follow-up care, medications, Prescriptions given X 4. 15:55 Patient left the ED. aa5 Addendum: 04/16/2020 07:18 Addendum: Culture Results: Positive urine culture. No further action required. Bacteria e b sensitive to prescribed antibiotic. Signatures: Dispatcher [employer] EDMS Oscar Pacheco RN RN Casey Jones MD MD kdr Williams, Irene, RN RN Sly Membreno MD MD rn Calderon, Audri, RN RN aa5 Adam Esposito Elizabeth eb Roque, Raymond, RN RN rr5 Cheryl Whelan cl3
[2020-04-13 18:13] VITALS: TEMP 98
[2020-04-13 18:15] VITALS: BP 118/54
[2020-04-13 18:16] VITALS: O2SAT 99
== END 2020-04-13 15:55 | disposition home or self-care (01) ==
LOC: ER 05:12
DX: K46.9 Unspecified abdominal hernia without obstruction or gangrene (principal); N39.0 Urinary tract infection, site not specified; N13.30 Unspecified hydronephrosis; E05.90 Thyrotoxicosis, unspecified without thyrotoxic crisis or storm; Z90.5 Acquired absence of kidney; Z88.5 Allergy status to narcotic agent; Z88.8 Allergy status to other drugs, medicaments and biological substances; Z85.528 Personal history of other malignant neoplasm of kidney; Z91.040 Latex allergy status; Z91.048 Other nonmedicinal substance allergy status
CPT/HCPCS: 96365; 87088; 85025; 87086; 80048; 36415; 82565; 80076; 87077; 87186; 83690; 84145; 74176; 96375; 99284; J2175 ×2; J0696; 81003; 81015; J2270

== ENCOUNTER 2020-05-02 10:52 | Day surgery (SDC) | payer MEDICARE ==
[2020-04-25 09:45] LABS: Urine Appearance CLEAR; Urine Bilirubin NEGATIVE (NEG); Urine Blood NEGATIVE (NEG); Urine Color YELLOW; Urine Glucose NEGATIVE (NEG); Urine Protein NEGATIVE (NEG); Urine Urobilinogen 0.2 mg/dL (0.2-1.0)
[2020-04-25 09:46] LABS: Urine Microscopic Reflex ORDER UMIC
[2020-04-25 09:54] LABS: Urine Bacteria 20-50 /HPF (<20); Urine RBC NONE SEEN /HPF (NONE SEEN)
[2020-04-25 10:23] LABS: Absolute Lymphocytes (CBC) 2.1 K/uL (0.7-4.9); Basophils % 1.2 % (0-1.3); Hematocrit 33.5 % (36.0-45.0); Lymphocytes % 15.8 % (15.3-44.8); MPV 8.3 fL (7.6-11.3); RBC Red Blood Cell Count 4.05 M/uL (3.86-4.86)
--- OUTSIDE RECORDS SUMMARY | 2020-05-02 10:56 | XMS REPORT | Continuity of Care Document ---
:1950 Author Organization [facility] t Address [address] [place] [place] [address] Care Team Providers Name Role Phone Mabel Queen MD Attending Clinician Doctor Unassigned, Name Attending Clinician Unavailable Problems This patient has no known problems. Allergies, Adverse Reactions, Alerts This patient has no known allergies or adverse reactions. Medications This patient has no known medications. Procedures This patient has no known procedures. Encounters Start End Encounter Admission Attending Care Care Encounter Source Date/Time Date/Time Type Type Clinicians Facility Department ID 2020-04-20 2020-04-20 Outpatient [facility] [id number] [facility] 2020-04-17 2020-04-17 Telephone Bernice [facility] [id number] 00:00:00 00:00:00 [facility] [id number] [place] [id number] Judy [phone] nal 044 Office [address] [facility] 2020-04-14 2020-04-14 Office Bernice [facility] [id number] 13:50:03 14:52:04 Visit [facility] [id number] [place] [id number] Judy [phone] nal 044 Office [facility] 2020-03-06 2020-03-06 Orders Doctor [place] [id number] 00:00:00 00:00:00 Only Unassigned, DRU [id number] [place] [facility] [phone] [id number] Results This patient has no known results.
--- OUTSIDE RECORDS SUMMARY | 2020-05-02 11:06 | XMS REPORT | Summary of Care ---
:1950 Author Organization [facility] Address [address] [place] [address] Care Team Providers Name Role Phone Mabel Queen MD Primary Care Provider Reason for Visit Reason Comments Forms Clearance Encounter Details Date Type Department Care Team Description 04/13/2020 Telephone [facility] Family Kobi Queen F orms (Clearance ) Medicine - Eduar CARRERO [address] [place] [address] Dr [address] [place] [address] [place] [address] [place] [phone] Allergies Active Allergy Reactions Severity Noted Date Comments Iodine Hives, Itching, Rash 01/11/2020 Latex Hives, Rash 01/11/2020 Morphine Anaphylaxis 01/11/2020 documented as of this encounter (statuses as of 04/14/2020) Medications Medication Sig Dispensed Refills Start Date [...] Active vagina. 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 documented as of this encounter Last Filed Vital Signs Not on filedocumented in this encounter Miscellaneous Notes Telephone Encounter - Yamile Mcneal LVN - 04/14/2020 10:31 AM CSTCalled Denisse back advised WBC still elevated and Dr Queen has advised patient she should not have surgery at this time while still has residual infection. elephone Encounter - Yamile Mcneal LVN - 04/14/2020 10:27 AM CST Kobi Queen MD 04/10/2020 5:49 PM LINING FELLER Her white blood cell count is still elevated. Is her toe better? She should not have the surgerywith any residual infection in her body. Let me know what she says. elephone Encounter - Christine Pinon - 04/13/2020 1:[address] Martinez's office is calling back to check the status of the clearance forms that were faxed over earlier this month. Denisse is requesting a call back. documented in this encounter Plan of Treatment Date Type Specialty Care Team Description 04/14/2020 Office Visit Family Medicine Kobi Queen MD [address] [place] [phone] 05/11/2020 Office Visit Family Medicine Kobi Queen MD [address] [place] [phone] 06/26/2020 Office Visit Endocrinology Diabetes & SimonsiKirstie riley MD Metabolism [address] [place] [address] [phone] Health Maintenance Due Date Last Done Comments [...] ID Effective Phone Address T ype Group [facility] SERGIO/JOANN [id number] 2019-Ruddy candelario Adv HEALTHCARE - MEDICARE nt O MANAGED MEDICARE ADVANTAGE documented as of this encounter
[2020-05-02] MEDS ORDERED: Ringers Lactate 0 ML IV ONE (11:07)
--- OUTSIDE RECORDS SUMMARY | 2020-05-02 11:07 | XMS REPORT | Summary of Care ---
:1950 Author Organization [facility] - Health Address [address] [place] [address] Care Team Providers Name Role Phone Mabel Queen MD Primary Care Provider Encounter Details Date Type Department Care Team Description 03/06/2020 Orders Only [facility] Doctor Unassigned, No [address] [facility] Name [place] [phone] Allergies Active Allergy Reactions Severity Noted Date Comments Iodine Hives, Itching, Rash 01/11/2020 Latex Hives, Rash 01/11/2020 Morphine Anaphylaxis 01/11/2020 documented as of this encounter (statuses as of 04/20/2020) Medications Medication Sig Dispensed Refills Start Date [...] as of this encounter (statuses as of 04/20/2020) Active Problems Problem Noted Date Hyperthyroidism 02/17/2020 [...] as of this encounter (statuses as of 04/20/2020) Social History Tobacco Use Types Packs/Day Years [...] been in contact with No / Unsure 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 documented as of this encounter Last Filed Vital Signs Not on filedocumented in this encounter Plan of Treatment Date Type Specialty Care Team Description 05/11/2020 Office Visit Family Medicine Kobi Queen MD [facility] [place] [phone] 06/26/2020 Office Visit Endocrinology Diabetes & [place] Kirstie gee MD Metabolism [address] [place], [place] [phone] Health Maintenance Due Date Last Done Comments [...] Name Priority Date/Time Associated Diagnosis Comme nts SCANNED LAB RESULTS Routine 03/06/2020 12:01 AM CDT documented in this encounter Results SCANNED LAB RESULTS (03/06/2020 12:01 AM CDT) Specimen Performing Organization Address City/State/Zipcode Phone Number HIM documented in this encounter Insurance Payer Benefit Plan / Subscriber ID Effective Phone Address T ype Group Dates [place] [id number] 2019-Ruddy Bowens HEALTHCARE - MEDICARE nt O MANAGED MEDICARE ADVANTAGE documented as of this encounter
--- OUTSIDE RECORDS SUMMARY | 2020-05-02 11:07 | XMS REPORT | Summary of Care ---
:1950 Author Organization [facility] - [facility] Address [address] [place] [address] Care Team Providers Name Role Phone Mabel Queen MD Primary Care Provider Reason for Visit Reason Comments ER F[facility] Encounter Details Date Type Department Care Team Description 04/14/[address] [facility] Family [place] aust[place] t flank pain (Primary Dx); Medicine - Eduar Monroe MD Hydroureter, right; [address] [place] [address] Single kidney; [place], [place] Cellulitis of second toe of left foot; [place] [address] Preoperative examination [id number] Allergies Active Allergy Reactions Severity Noted Date Comments Iodine Hives, Itching, Rash 01/11/2020 Latex Hives, Rash 01/11/2020 Morphine Anaphylaxis 01/11/2020 documented as of this encounter (statuses as of 04/16/2020) Medications Medication Sig Dispensed Refills Start Date End Date Status amLODIPine 10 mg Take 1 tablet by 30 tablet 5 02/10/2020 Active tabletIndications: mouth daily. DOSE Essential hypertension INCREASE. dicyclomine 10 mg Take 1 capsule by 30 capsule 0 02/10/2020 Active capsuleIndications: mouth 4 (four) Intermittent abdominal times daily as pain needed for Abdominal pain. citalopram 10 mg Take 1 tablet by 30 tablet 2 02/10/2020 Active tabletIndications: mouth daily. Anxiety ESTRADIOL VAGINAL Insert 0.01 % 0 Active into vagina. Uses 3 x per week omeprazole 40 mg 0 03/12/2020 Ac tive capsule ciprofloxacin HCl Take 500 mg by 0 Active (CIPRO) 500 mg tablet mouth every 12 (twelve) hours. Polyethylene Glycol Take 1 Packet by 0 Active 3350 17 gram powder mouth. acetaminophen-codeine Take 1 tablet by 0 Active 300-30 mg tablet mouth every 4 (four) hours as needed. ondansetron 4 mg Take 4 mg by 0 Active tablet mouth every 12 (twelve) hours. 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 documented as of this encounter Last Filed Vital Signs Vital Sign Reading Time Taken Comments Blood Pressure 107/64 04/14/2020 2:18 PM CIGARETTE FILTER INSPECTOR Pulse 82 04/14/2020 2:18 PM CIGARETTE FILTER INSPECTOR Temperature 36.6 C (97.9 F) 04/14/2020 2:18 PM CIGARETTE FILTER INSPECTOR Respiratory Rate - - Oxygen Saturation - - Inhaled Oxygen Concentration - - Weight 95.7 kg (211 lb) 04/14/2020 2:18 PM CIGARETTE FILTER INSPECTOR Height 177.8 cm (5' 10") 04/14/2020 2:18 PM CIGARETTE FILTER INSPECTOR Body Mass Index 30.28 04/14/2020 2:18 PM CIGARETTE FILTER INSPECTOR documented in this encounter Progress Notes Kobi Queen MD - 04/14/2020 2:15 PM CST CC: Chief Complaint Patient presents with ER F[facility]U [facility] is a 70 year old female who presents for an ER follow-up of abdominal and pelvic pain. She is accompanied by her grand-daughter Julia Carter. The patient presented to [facility] ER on 04/13/2020 with complaint of abdominal and pelvic pain. The patient underwent the following evaluations: CT of the abdomen/pelvis, labs. The patient was diagnosed with worsening right hydronephrosis, sigmoid hernia, and chronic UTI. Treatments in the ER included: IV antibiotics and analgesic medication. At discharge the patient was instructed to take the following medications: T#3, Zofran, Cipro, Miralax. The patient was told to follow-up with her PCP and her Uro-LYRIC WRITER Dr. Martinez. Since the ER visit the patient has experienced the following: She is taking the discharge medications as prescribed. Some decrease in the intensity of her pain but she continues to have persistent right flank and lower abdominal/pelvic pain that is worse with sitting. She needs clearance for uro- research assoc surgery with Dr. Martinez urgently so colpocleisis, MUS/cysto, and perinorrhaphy can be performed to relieve her hydronephrosis and severe pelvic organ prolapse, especially given her unilateral kidney status. The patient says she will require somesort of sedation for the surgery due to her anxiety level (only spinal anesthesia is reportedly planned per the patient). Her surgery had been held up due to persistent leukocytosis and left 2nd toe cellulitis. She says her toe is better w/ her current course of Cipro from the ER but she had failed clindamycin and cefadroxil. Allergies Allergen Reactions Iodine Hives, Itching and Rash Latex Hives and Rash Morphine Anaphylaxis Current Outpatient Medications: acetaminophen-codeine 300-30 mg tablet, Take 1 tablet by mouth every 4 (four) hours as needed.,Disp: , Rfl: ciprofloxacin HCl (CIPRO) 500 mg tablet, Take 500 mg by mouth every 12 (twelve) hours., Disp: ,Rfl: ondansetron 4 mg tablet, Take 4 mg by mouth every 12 (twelve) hours., Disp: , Rfl: Polyethylene Glycol 3350 17 gram powder, Take 1 Packet by mouth., Disp: , Rfl: omeprazole 40 mg capsule, , Disp: , Rfl: ESTRADIOL VAGINAL, Insert 0.01 % into vagina. [...] file Gets together: Not on file Attends roman catholic service: Not on file Active member of [...] Eyes: Negative. Respiratory: Negative. Cardiovascular: Negative. Gastrointestinal: Positive for abdominal pain. Genitourinary: Positive for flank pain. Skin: Negative. Neurological: Negative. Psychiatric/Behavioral: The patient is nervous/anxious. Endocrine: Endocrine negative Vital signs BP 107/64 | Pulse 82 | Temp 36.6 C (97.9 F) (Tympanic) | Ht 5' 10" (1.778 m) | Wt 211 lb (95.7 kg) | BMI 30.28 kg/m Physical Exam Vitals signs and nursing note reviewed. Constitutional: General: She is not in acute distress. Appearance: She is well-developed. Eyes: General: No scleral icterus. Conjunctiva/sclera: Conjunctivae normal. Pupils: Pupils are equal, round, and reactive to light. Cardiovascular: Rate and Rhythm: Normal rate and regular rhythm. Pulses: Dorsalis pedis pulses are 2+ on the left side. Posterior tibial pulses are 2+ on the left side. Heart sounds: Normal heart sounds. No murmur. No friction rub. No gallop. Pulmonary: Effort: Pulmonary effort is normal. Breath sounds: Normal breath sounds. No wheezing, rhonchi or rales. Abdominal: General: Bowel sounds are normal. There is no distension. Palpations: Abdomen is soft. There is no mass. Tenderness: There is abdominal tenderness in the right lower quadrant, suprapubic area and left lower quadrant. There is right CVA tenderness. Musculoskeletal: Right lower leg: No edema. Left lower leg: No edema. Feet: Left foot: Skin integrity: Skin integrity normal. No ulcer, blister, skin breakdown, erythema, warmth, callus, dry skin or fissure. Skin: General: Skin is warm and dry. Coloration: Skin is not jaundiced or pale. Findings: No rash. Neurological: General: No focal deficit present. Mental Status: She is alert and oriented to person, place, and time. Psychiatric: Mood and Affect: Mood is anxious. Mood is not depressed. Behavior: Behavior normal. Thought Content: Thought content normal. Judgment: Judgment normal. LABS: CBC CMP WBC (10*3/L) Date Value 04/10/2020 13.33 (H) NA (mmol/L) Date Value 03/21/2020 139 RBC (10*6/L) Date Value 04/10/2020 4.20 K (mmol/L) Date Value 03/21/2020 4.3 PLT (10*3/L) Date Value 04/10/2020 350 CALCIUM (mg/dL) Date Value 03/21/2020 9.8 HGB (g/dL) Date Value 04/10/2020 12.1 CL (mmol/L) Date Value 03/21/2020 100 HCT (%) Date Value 04/10/2020 36.2 BUN (mg/dL) Date Value 03/21/2020 19 LIPID [...] Diagnoses and all orders for this visit: Right flank pain; Abdominal pain, multiple sites; Right hydronephrosis; Right hydroureter; Pelvic organ prolapse; Single kidney; Preoperative examination The patient's toe cellulitis is resolved and she is cleared for Uro-LYRIC WRITER surgery given upon discussion of the surgery with her LYRIC WRITER Dr. Martinez today, it was determined that the benefits of surgery for this patient with one kidney far outweighs any risk from a current infection. She will be covered with pre- and intra-operative antibiotics per discussion with Dr. Martinez. Clearance paperwork was faxed to Dr. Martinez's office and I personally texted the clearance decision to her. Cellulitis of second toe of left foot Resolved. Plan of care, desired health behaviors, goals, Ddx, and any prescribed medications were discussed with the patient. This visit did not involve counseling and coordination that comprised more than 50% of the visit time. Education resources and self-management tools were provided/reviewed with the AVS. Patient/guardian/family verbalized understanding and agrees to the plan of care. Barriers to care: None. Ability to manage care: Good. Advanced care planning (living will) information was not given/offered to the patient to review for discussion at a future visit. If applicable, the [place] PMPdatabase was accessed to review any controlled substance prescription claims data. If the patient is taking prescribed medications, the [employer] Scripts prescription claims data in [employer] was reviewed to assess patient compliance with the medication treatment plan. Follow-up: Return for routine care as scheduled or previously advised. Follow- up sooner if any problems or concerns. Scribe Venita Mccracken am scribing for, and in the presence of, Kobi Queen MD who performed the services described here-in. Venita Dixon, April 14, 2020, 2:10 PM Physician Attestation I, Kobi Queen MD, personally performed the services described in this documentation , as scribed by, Venita Dixon in my presence and it is both accurate and complete. 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
--- OUTSIDE RECORDS SUMMARY | 2020-05-02 11:07 | XMS REPORT | Summary of Care ---
:1950 Author Organization [facility] - [facility] Address [address] [place] [address] Care Team Providers Name Role Phone Mabel Queen MD Primary Care Provider Reason for Referral (Routine) Status Reason Specialty Diagnoses / Referred By Referred To Procedures Contact Contact Open Referring Urology Diagnoses Hydronephrosis of right kidney Hydroureter, right History of kidney cancer Pelvic organ prolapse quantification stage 1 cystocele Bernice, Provider Request Procedures CONSULT/REFERRAL UROLOGY Kobi Monroe MD [address] [place] [address] [place] [phone] Reason for Visit Reason Comments Referral/consult Urology Encounter Details Date Type Department Care Team Description 04/17/2020 Telephone [facility] Family Kobi Queen R eferral/consult Medicine - Eduar CARRERO (Urology) [address] [place] [address] [place] [phone] Allergies Active Allergy Reactions Severity Noted Date Comments Iodine Hives, Itching, Rash 01/11/2020 Latex Hives, Rash 01/11/2020 Morphine Anaphylaxis 01/11/2020 documented as of this encounter (statuses as of 04/18/2020) Medications Medication Sig Dispensed Refills Start Date [...] as of this encounter (statuses as of 04/18/2020) Active Problems Problem Noted Date Hyperthyroidism 02/17/2020 [...] as of this encounter (statuses as of 04/18/2020) Immunizations Name Administration Dates Next Due Influenza [...] with No / Unsure 04/14/2020 2:16 PM OPEN HEARTH STOCKYARD 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 documented as of this encounter Last Filed Vital Signs Not on filedocumented in this encounter Miscellaneous Notes Telephone Encounter - Elayne iRvas - 04/17/2020 9:19 AM CSTPt has appointment with Urology For 04/20/20 @ 11:[address] Moi Pan Facility Address: [address] [place] [address] documented in this encounter Plan of Treatment Date Type Specialty Care Team Description 05/11/2020 Office Visit Family Medicine Kobi Queen MD [address] [place] [phone] 06/26/2020 Office Visit Endocrinology Diabetes & Kesired Kirstie gee MD Metabolism [address] [place] [address] [phone] Health Maintenance Due Date Last Done Comments [...] filedocumented in this encounter Visit Diagnoses Diagnosis Hydroureter, right - Primary Hydroureter Hydronephrosis of right kidney Hydronephrosis History of kidney cancer Personal history of malignant neoplasm o f kidney Pelvic organ prolapse quantification sta ge 1 cystocele documented in this encounter Insurance Payer Benefit Plan / Subscriber ID Effective Phone Address T ype Group Dates [facility] [id number] 2019-Ruddy Bowens [facility] documented as of this encounter
--- OUTSIDE RECORDS SUMMARY | 2020-05-02 11:07 | XMS REPORT | Summary of Care ---
:1950 Author Organization [facility] - [facility] Address [address] [place] [address] Care Team Providers Name Role Phone Mabel Queen MD Primary Care Provider Reason for Visit Reason Comments ER [facility] Encounter Details Date Type Department Care Team Description 04/14/[address] [facility] Family [place] aust[place]unilda [place]anival t flank pain (Primary Dx); Medicine - Eduar Monroe MD Hydroureter, right; [address] [place] [address] Single kidney; [place], [place] Cellulitis of second toe of left foot; [place] [address] Preoperative examination [id number] Allergies Active Allergy Reactions [...] with No / Unsure 04/14/2020 2:16 PM WAITER/WAITRESS BUFFET someone who was confirmed or 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 documented as of this encounter Last Filed Vital Signs Vital Sign Reading Time Taken Comments Blood Pressure 107/64 04/14/2020 2:18 PM WAITER/WAITRESS BUFFET Pulse 82 04/14/2020 2:18 PM WAITER/WAITRESS BUFFET Temperature 36.6 C (97.9 F) 04/14/2020 2:18 PM WAITER/WAITRESS BUFFET Respiratory Rate - - Oxygen Saturation - - Inhaled Oxygen Concentration - - Weight 95.7 kg (211 lb) 04/14/2020 2:18 PM WAITER/WAITRESS BUFFET Height 177.8 cm (5' 10") 04/14/2020 2:18 PM WAITER/WAITRESS BUFFET Body Mass Index 30.28 04/14/2020 2:18 PM WAITER/WAITRESS BUFFET documented in this encounter Progress Notes Kobi Queen MD - 04/14/2020 2:15 PM CST CC: Chief Complaint [facility] 70 [facility] who presents for an ER follow-up of abdominal and pelvic pain. She is accompanied by her grand-daughter Julia Carter. The patient presented to [facility] ER on 04/13/2020 with complaint of abdominal [...] to follow-up with her PCP and her Uro-EDUCATIONAL/DEVELOPMENT ASSISTANT Dr. Martinez. Since the ER visit the patient has experienced the following: She is taking the discharge medications as prescribed. Some decrease in the intensity of her pain but she continues to have persistent right flank and lower abdominal/pelvic pain that is worse with sitting. She needs clearance for uro- pharmacy technician surgery with Dr. Martinez urgently so colpocleisis, [...] file Gets together: Not on file Attends adventist service: Not on file Active member of [...] is resolved and she is cleared for Uro-EDUCATIONAL/DEVELOPMENT ASSISTANT surgery given upon discussion of the surgery with her EDUCATIONAL/DEVELOPMENT ASSISTANT Dr. Martinez today, it was determined that [...] at a future visit. If applicable, the [place] PMPdatabase was accessed to review any controlled substance prescription claims data. If the patient is taking prescribed medications, the [employer] Scripts prescription claims data in [employer] was reviewed to assess patient compliance with [...] Queen MD April 14, 2020, 2:10 PM ER/WAITRESS BUFFET documented in this encounter Plan of Treatment Date Type Specialty Care Team Description 05/11/2020 Office Visit Family Medicine Kobi Queen MD [address] [place] [address] [phone] 06/26/2020 Office Visit Endocrinology Diabetes & Kesired Kirstie gee MD [address] [address] [phone] Health Maintenance Due Date Last Done Comments [...] Phone Address T ype Group Dates [facility] [id number] 2019-Ruddy candelario [facility] documented as of this encounter
--- OUTSIDE RECORDS SUMMARY | 2020-05-02 11:07 | XMS REPORT | Summary of Care ---
:1950 Author Organization [facility] - [facility] Address [address] [place] [address] Care Team Providers Name Role Phone Mabel Queen MD Primary Care Provider Reason for Visit Reason Comments [facility] Encounter Details Date Type Department Care Team Description 04/14/2020 Office Visit [facility] Family [place] austinzunilda Mayfieldanival t flank pain (Primary Dx); Medicine - Eduar Monroe MD Hydroureter, right; [address] [place] [address] Single kidney; [place], [place] Cellulitis of second toe of left foot; [place] [address] Preoperative examination; [id number] Hydronephrosis of right kidney [phone] Allergies Active Allergy Reactions Severity Noted Date [...] with No / Unsure 04/14/2020 2:16 PM 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 documented as of this encounter Last Filed Vital Signs Vital Sign Reading Time Taken Comments Blood Pressure 107/64 04/14/2020 2:18 PM COGNOS TM1 DEVELOPER Pulse 82 04/14/2020 2:18 PM COGNOS TM1 DEVELOPER Temperature 36.6 C (97.9 F) 04/14/2020 2:18 PM COGNOS TM1 DEVELOPER Respiratory Rate - - Oxygen Saturation - - Inhaled Oxygen Concentration - - Weight 95.7 kg (211 lb) 04/14/2020 2:18 PM COGNOS TM1 DEVELOPER Height 177.8 cm (5' 10") 04/14/2020 2:18 PM COGNOS TM1 DEVELOPER Body Mass Index 30.28 04/14/2020 2:18 PM COGNOS TM1 DEVELOPER documented in this encounter Progress Notes Kobi Queen MD - 04/14/2020 2:15 PM CST CC: Chief Complaint Patient presents with ER F/U [facility] Samantha Green is a 70 year old female who presents for an ER follow-up of abdominal and pelvic pain. She is accompanied by her grand-daughter Julia Carter. The patient presented to [facility] ER on 04/13/2020 with complaint of [...] to follow-up with her PCP and her Uro-PSYCHOLOGY INSTRUCTOR Dr. Martinez. Since the ER visit the patient has experienced the following: She is taking the discharge medications as prescribed. Some decrease in the intensity of her pain but she continues to have persistent right flank and lower abdominal/pelvic pain that is worse with sitting. She needs clearance for uro- information technology security manager surgery with Dr. Martinez urgently so colpocleisis, [...] file Gets together: Not on file Attends cheondoism service: Not on file Active member of [...] is resolved and she is cleared for Uro-PSYCHOLOGY INSTRUCTOR surgery given upon discussion of the surgery with her PSYCHOLOGY INSTRUCTOR Dr. Martinez today, it was determined that [...] at a future visit. If applicable, the [place] PMPdatabase was accessed to review any controlled substance prescription claims data. If the patient is taking prescribed medications, the [employer] prescription claims data in [employer] was reviewed to assess patient compliance with [...] Queen MD April 14, 2020, 2:10 PM OS TM1 DEVELOPER documented in this encounter Plan of Treatment Date Type Specialty Care Team Description 05/11/2020 Office Visit Family Medicine Kobi Queen MD [address] [place] [phone] 06/26/2020 Office Visit Endocrinology Diabetes & Kesired Kirstie gee MD [address] [address] [phone] Health Maintenance Due Date Last Done Comments [...] unspecifi ed Preoperative examination Preoperative examination, unspecified Hydronephrosis of right kidney Hydronephrosis documented in this encounter Insurance Payer Benefit Plan / Subscriber ID Effective Phone Address T ype Group Dates [facility] [id number] 2019-Ruddy candelario [facility] - MEDICARE nt HMO MANAGED MEDICARE ADVANTAGE documented as of this encounter
--- OUTSIDE RECORDS SUMMARY | 2020-05-02 11:08 | XMS REPORT ---
:1950 Author Organization [facility] Address [address] [facility], [place] [place] [address] Care Team Providers Name Role Phone Moi Pan Unavailable [phone] PROBLEMS Type Condition ICD9-CM [id number] Onset Condition SNOMED Code Notes Code Code Dates Status Problem Pelvic organ N81.10 Active 388181395 prolapse quantification stage 4 cystocele Problem Solitary kidney, Z90.5 Active 892848095 acquired ALLERGIES Allergen (clinical Drug/Non Drug Reaction Allergy Type Onset Date S tatus drug ingredient) Allergy documented on EMR LATEX Unknown Non Drug Allergy Active IODINE Unknown Non Drug Allergy Active MORPHINE Unknown Non Drug Allergy Active ENCOUNTERS from 1950 to 2020-04-21 Encounter Location Date Provider Diagnosis [place] [address] [facility] [place] Apr, Moi Pan Acute lo wer UTI N39.0 Specialty/Urology [address] [place] [address], ; [place] [id number] prolapse quantification stage 4 cystocele N81.1 0 ; Hydronephrosis, right N13.30 and Carlie tary kidney, acquire d Z90.5 IMMUNIZATIONS No Information SOCIAL HISTORY Sex Assigned At : Social History Observation Description Sex Assigned At Unknown REASON FOR REFERRAL No Information VITAL SIGNS Height 70 in Apr, Weight 212.6 lbs Apr, Temperature 98.7 degrees Fahrenheit Apr, BMI 30.5 kg/m2 Apr, Oximetry 97 % Apr, Blood pressure systolic 189 mm Hg Apr, Blood pressure diastolic 86 mm Hg Apr, MEDICATIONS Medication SIG (Take, Route, Notes Start Date End Date Status Frequency, Duration) Citalopram Hydrobromide 10 1 tablet Orally Once a Active MG day Amlodipine Besylate 10 MG 1 tablet Orally Once a Active day Dicyclomine HCl 10 MG 2 capsules Orally Three Active times a day Ondansetron HCl 4 MG 1 tablet Orally Once a Active day Omeprazole 40 MG 1 capsule 30 minutes Active before morning meal Orally Once a day PROCEDURES No Information RESULTS No Results REASON FOR VISIT REFERRED BY [facility] FOLLOW- UP/bladder prolapse MEDICAL (GENERAL) HISTORY Type Description Date Medical History HYPERTHYROIDISM Medical History HX OF KIDNEY CANCER Medical History LIVER CYST Medical History BLADDER SWELLING Surgical History GALLBLADDER REMOVED Surgical History LEFT KIDNEY REMOVED- CANCER Surgical History APPENDIX REMOVED Surgical History HYSTERECTOMY Surgical History HERNIA REPAIRED Goals Section No Information Health Concerns No Information MEDICAL EQUIPMENT No Information MENTAL STATUS No Information FUNCTIONAL STATUS No Information ASSESSMENTS Encounter Date Diagnosis Assessment Notes Treatment Notes Treatm ent Clinical Notes Apr, Acute lower UTI (ICD-10 - N39.0) Apr, Pelvic organ prolapse quantification stage 4 cystocele (ICD-10 - N81.10) Apr, Hydronephrosis, right (ICD-10 - N13.30) Apr, Solitary kidney, acquired (ICD-10 - Z90.5) PLAN OF TREATMENT Treatment Notes Test Name Order Date URINALYSIS AUTO W/O SCOPE (31454) 2020-04-21 PVR 2020-04-21 Insurance Providers Payer Name Payer Payer Insured Patient Coverage Coverage End Address Phone Name Relationship to Start Date Chi e Insured [employer] Medicare [phone] NONI MEDINA [facility] [employer] [id number] [address]
[2020-05-02] MEDS: CEFAZOLIN/SWI 2gm 2 GM/20 ML SYR ONE ×2 (12:37→13:55)
[2020-05-02] MEDS: CEFAZOLIN/SWI 1gm 1 GM/10 ML SYR ONE ×2 (12:38→13:55)
[2020-05-02] MEDS ORDERED: MIDAZOLAM HCL 2 MG/2 ML INJ ONE (12:39)
[2020-05-02] MEDS ORDERED: ROCURONIUM 50 MG/5 ML VIAL IV ONE (12:39)
[2020-05-02] MEDS ORDERED: dexAMETHasone 10 MG/ML VIAL ONE (12:39)
[2020-05-02] MEDS ORDERED: LIDOCAINE 2% MPF 5 ML VIAL ONE (12:39)
[2020-05-02] MEDS ORDERED: FENTANYL CITR 100 MCG/2 ML ONE ×2 (12:39→15:51)
[2020-05-02] MEDS ORDERED: propofoL 200 MG/20 ML VIAL IV ONE (12:39)
[2020-05-02] MEDS ORDERED: ONDANSETRON 4 MG/2 ML VIAL ONE (12:45)
[2020-05-02] MEDS ORDERED: NA CHLORIDE 0.9% 100 ML IV ONE (13:15)
[2020-05-02] MEDS ORDERED: VASOPRESSIN 20 UNIT/ML VIAL ONE (13:16)
[2020-05-02] MEDS ORDERED: CEFAZOLIN SODIUM 1 GM/VIAL ONE (14:26)
[2020-05-02] MEDS ORDERED: VECURONIUM 10 MG/VIAL IV ONE (15:17)
[2020-05-02] MEDS ORDERED: Ringers Lactate 1,000 ML IV ONE (15:20)
[2020-05-02] MEDS ORDERED: NA CHLORIDE 0.9% 1,000 ML ONE ×2 (15:23→20:23)
[2020-05-02] MEDS ORDERED: LIDOCAINE 1% W/EPI 1:100,000 MDV 20 ML VIAL ONE ×2 (15:52→17:23)
[2020-05-02] MEDS ORDERED: GLYCOPYRROLATE 0.2 MG/ML SYR ONE (16:56)
[2020-05-02] MEDS ORDERED: NEOSTIGMINE 1 MG/ML -5 ML ONE (16:56)
[2020-05-02] MEDS ORDERED: KETOROLAC 30 MG/ML INJ ONE (17:50)
[2020-05-02] MEDS ORDERED: PROMETHAZINE 25 MG TABLET PO PRN (18:04)
[2020-05-02] MEDS ORDERED: ACETAMINOPHEN 500 MG TAB PO PRN (18:04)
--- NOTE | 2020-05-02 18:16 | P.BOP ---
Preoperative diagnosis: stage 4 prolapse, occult TARA Postoperative diagnosis: same Primary procedure: colpocleisis, perineal body repair, TVT-O (MUS) Secondary procedure: same Custom Seamstress: Isatu Golden Estimated blood loss: 100 Specimen: none Findings: +3/+3/+13/8/thin/13/+3/+8/na Anesthesia: General Complications: None Drain(s): Urinary catheter Implants: TVT-O Transferred to: Recovery Room Condition: Good
[2020-05-02] MEDS ORDERED: HYDROMORPHONE HCL 0.5 MG/0.5 ML INJ IV PRN (18:49)
[2020-05-02] MEDS ORDERED: Ringers Lactate 1,000 ML IV SCH (19:00)
[2020-05-02 19:14] VITALS: O2SAT 98
[2020-05-02 21:23] VITALS: BMI 29.8
[2020-05-02] MEDS: IBUPROFEN 600 MG TAB PO PRN (23:40)
[2020-05-03] MEDS ORDERED: Ringers Lactate 1,000 ML IV ONE (03:53)
[2020-05-03 05:25] LABS: Absolute Lymphocytes (CBC) 1.3 K/uL (0.7-4.9); Basophils % 0.7 % (0-1.3); Hematocrit 28.9 % (36.0-45.0); Lymphocytes % 9.6 % (15.3-44.8); MPV 7.5 fL (7.6-11.3); RBC Red Blood Cell Count 3.47 M/uL (3.86-4.86)
[2020-05-03 07:01] LABS: Blood Morphology Comment NOT SEEN (NOT SEEN); Platelet Estimate ADEQ
[2020-05-03] MEDS: IBUPROFEN 600 MG TAB PO PRN (08:05)
[2020-05-03] MEDS ORDERED: CITALOPRAM 10 MG TABLET PO SCH (09:00)
[2020-05-03] MEDS ORDERED: AMLODIPINE 10 MG TAB PO SCH (09:00)
[2020-05-03 10:11] VITALS: BP 127/61; TEMP 98.1
[2020-05-03] MEDS ORDERED: ESTRADIOL 42.5 GM PO SCH (17:15)
--- NOTE | 2020-06-17 01:10 | OP ---
Date of Procedure: 05/02/2020 Surgeon: Ingrid Martinez MD Trimming Machine Operator: Isatu Golden. Preoperative Diagnoses: Stage IV vaginal wall anterior and posterior wall prolapse, occult stress ur inary incontinence, and right ureteric obstruction and right hydronephrosis due to this. Postoperative Diagnoses: Stage IV vaginal wall anterior and posterior wall prolapse, occult stress u rinary incontinence, and right ureteric obstruction and right hydronephrosis due to this. Primary Procedure: Colpocleisis, perineal body repair, mid urethral sling TVT-O, and cystoscopy. Anesthesia: General endotracheal. Estimated Blood Loss: 100. Specimens: No specimens. Complications: No complications Drains: Mike catheter. Findings: Pop-Q +3, +3, +13, 8 cm was the genital hiatus. Her perineal body was thin. The total va ginal length was 13 cm. Her AP, +3, BP +8, and point D nonapplicable. Implants Used: TVT-O. Patient's Condition: Good. Indications: The patient is a 70-year-old female, who presented with a large vaginal prolapse, inabi lity to void her bladder well, and also found to have right hydronephrosis and right hydroureter, mod erate due to obstruction. She is status post left nephrectomy and absent kidney on the left side due to renal cell cancer. Her BMP at baseline was still normal. Function was normal. After medical clearance was done on this patient, we discussed about all the options of pessary manag ement versus this acute pessary would also be very difficult to fit and retain due to the very large genital hiatus of 8 cm. After understanding the benefits and risks, the patient completely was not s exually active and had no plan for future either and understood the implications of vaginal closure, which is permanent and irreversible, which would preclude her from having any vaginal intercourse and after she completely understood this, handouts were given, and questions and answers were done. The n, she was medically cleared and brought into the hospital. She was also seen and evaluated by urolo gist, Dr. Pan for her hydroureter and hydronephrosis to rule out any urinary tract obstruction be sides her prolapse and that workup was negative. Description Of Procedure: After informed consent was verified, COVID test was done and was negative. Patient was taken back to the operating room. She was placed in a supine fashion operating. She a lso had some emergency room visits for her obstruction and bladder infections. Once all this was osman ared, she was taken back to operating room preoperative area. All the consents were re-verified and she was taken back to the operating room. She was placed in a supine fashion on the operating table. General anesthesia was given. She was placed in a dorsal lithotomy position. Pelvic exam was perf ormed. Pop-Q was as dictated above. Abdomen, vulva, vagina, and perineum were prepped and draped in a sterile fashion. Mike was placed to drain the bladder and the anterior and posterior sanchez were measured. A rectangular area was maylin ed on the anterior wall and the posterior wall using the vaginal vault that has been extremely dilate d with the apical enterocele as a marking. Then, there was mostly a posterior enterocele and apical enterocele, so once the anterior and posterior sanchez were identified well to the distal urethrovesica l junction, then all these markings were made in order for removal of the vaginal epithelium. Then, on the posterior aspect as above just leaving about 2 cm of the distal vaginal wall, a rectangular sk in marking was done on the vaginal epithelium in order to maylin out the area of excision. Once dilute vasopressin 20 units mixed in 50 cc of normal saline was taken, it was injected in the di stal anterior wall, then the anterior wall was also injected and it was infiltrated. Then, a 15 blad e was used to make a circumferential incision on the vaginal epithelium and subepithelium and the vag inal epithelium was carefully peeled off from the underlying tissues and the anterior vaginal wall. Then, hemostasis was secured as needed with the help of the Bovie as well as 3-0 Vicryl [id number] ht sutures. Then posteriorly, similar incision was made in a rectangular fashion with the help of a 15 blade in t he epithelium and subepithelium and the epithelium was peeled off leaving as much tissue behind that was lax connective tissue or just enterocele in some parts. This was all peeled off. Once this was done, the perineum appeared to be extremely thin and was very difficult to discern the lateral transv erse perinei. At the level of the perineum, rectovaginal exam was performed as well to discern these better, but it was extremely difficult due to the degree of prolapse the patient had dilated her gen ital hiatus. So, the vaginal closure was started at the apex. Very thin strip of vaginal epithelium was left at t he very apex of the vault and the anterior and posterior sanchez were sutured together starting at the left distal and of the anterior posterior wall excision. This was done with the help of 0 Vicryl sut ure and the lateral margins were started to be imbricated and sutured together. Then, the transverse apical vault part was sutured with the anterior and posterior sanchez together in a continuous running imbricated fashion. Then, this suture was taken on the right lateral aspect all the way starting at the proximal most part to the distal. Once this was done, there was a good invagination of the vagi nal vault, so a second layer was placed and this was done with the help of 2-0 Vicryl. Interrupted s utures were placed. Then, another third layer was placed in order for the anterior and posterior wal ls to come together. Before this was done, the posterior enterocele was reduced with the help of a p ursestring suture of 2-0 Vicryl, this was all brought together and pursed together. Then, the rest o f the closure was done with the help of 2-0 Vicryl in an interrupted fashion all the way to the dista l anterior and posterior sanchez. Once it came here, then injection was performed on the perineum and the lateral aspects as well as the distal vaginal vestibular aspect. Then, a triangular skin incisio n was made and this was connected to the above incision without peeling off the skin. Then, the perineal body and the levator ani were attempted to be exposed on the lateral margins. It was difficult to discern with the amount of swelling and laxity so by placing a rectovaginal finger t hese 2 edges were brought together with the help of 2-0 Vicryl sutures in an interrupted fashion x4. Once the perineal body was reconstructed, the genital hiatus still was at 5 cm. Slightly dissatisfa ctory, but was unable to bring tissues together that would not cut through, so left this at 5 cm and started to close the anterior and posterior wall of the distal most layer and interrupted figure-of-e ight sutures. Once this was done and there was good apposition of the anterior posterior vaginal epi thelium, the epithelial closure was done in a transverse fashion with the help of 2-0 Vicryl in a con tinuous running locked fashion. Once this was done, then the perineal body was further reconstructed another layer on top of the first one with couple of interrupted 2-0 Vicryl sutures. Once this was done, there was a considerable perineal body. Then, the procedure was completed. Perineal body reconstruction was done with the help of 3-0 Vicryl in a continuous running fashion com ing down the subcutaneous tissues and then subcuticular closure to close it all the way and tied insi de the vestibule. Then, mid urethral area was picked up with 2 Allis clamps and injected with dilute vasopressin. Trac ts were created on each side after a 1 cm incision made in the mid urethral area. This incision was away from the colpocleisis closure. Then, tracts were created to the ipsilateral shoulder hugging the inferior pubic ramus. Once the obt urator membrane was perforated, then track was created on both sides. Then, wing guide was placed an d the spike was passed hugging the inferior pubic ramus and exiting 1 cm lateral to the groin fold 2 cm above the horizontal line dropped at the level of the meatus. Similar pass was taken on the oppos ite side. Plastic dilators were cut out. Plastic sheath and mesh were held and tensioning was perfo rmed in the suburethral area with the help of mesh. The sheaths were pulled out. Mesh was cut, flus h with the skin, and skin glue used to close these incisions and the vaginal part of the mesh was irr igated with the help of saline antibiotic solution and then closed with the help of a 3-0 Vicryl in a continuous running locked fashion. Then, Mike was removed. Cystoscopy was performed with a 17-Viktor [facility] sheath 30-degree lens with normal saline and there was excellent jet of urine from the right uret lobo orifice. The bladder appeared to be slightly more stretched up. No evidence of any masses or d iverticula. The area of the trigone above the trigone and down the lateral sanchez were visualized. N o evidence of any trauma or foreign body in the lateral sanchez from the sling. The bladder was draine d. Mike was replaced and patient was recovered from anesthesia and taken to Postanesthesia Care Unit in a stable condition. Estimated blood loss was 100. SK/MODL Voice ID: [id number] Report ID: [id number]
== END 2020-05-03 12:00 | disposition home or self-care (01) ==
LOC: OR 10:52 → 2ND-WC 18:32 → OR 05-03 12:00
PROVIDERS: ATTEND Obstetrics & Gynecology
PROC: 0TSD0ZZ Reposition Urethra, Open Approach (ICD-10-PCS; 2020-05-02)
PROC: 0HQ9XZZ Repair Perineum Skin, External Approach (ICD-10-PCS; 2020-05-02)
PROC: 0ULG7ZZ Occlusion of Vagina, Via Natural or Artificial Opening (ICD-10-PCS; principal; 2020-05-02 12:00)
DX: N99.3 Prolapse of vaginal vault after hysterectomy (principal); N39.3 Stress incontinence (female) (male); E78.00 Pure hypercholesterolemia, unspecified; I10 Essential (primary) hypertension; Z85.528 Personal history of other malignant neoplasm of kidney; F41.9 Anxiety disorder, unspecified; F32.9 Major depressive disorder, single episode, unspecified; Z20.828 Contact with and (suspected) exposure to other viral communicable diseases; K21.9 Gastro-esophageal reflux disease without esophagitis; K76.0 Fatty (change of) liver, not elsewhere classified
CPT/HCPCS: 57120; 57288; 87088; 85025 ×2; 87086; 36415 ×2; 86900; 86850; 86901; 56810; U0002; J2704; J2250; J3010 ×2; J1100; J2710; J0690 ×3; J7120 ×2; J7030 ×2; J2405; 81003; 81015

== ENCOUNTER 2021-05-08 06:23 | Day surgery (SDC) | payer OTHER ==
[2021-05-02 12:57] LABS: Urine Appearance CLEAR (Clear); Urine Bilirubin NEGATIVE (Negative); Urine Blood NEGATIVE (Negative); Urine Color YELLOW (Yellow); Urine Glucose NEGATIVE (Negative); Urine Protein NEGATIVE (Negative); Urine Urobilinogen 0.2 mg/dL (0.2-1.0); Urine pH 5.5 (5.0-7.0)
[2021-05-02 12:58] LABS: Urine Microscopic Reflex NO UMIC
[2021-05-02 13:02] LABS: Absolute Lymphocytes (CBC) 1.9 K/uL (0.7-4.9); Basophils % 0.4 % (0-1.3); Hematocrit 39.9 % (36.0-45.0); Lymphocytes % 20.7 % (15.3-44.8); MPV 7.8 fL (7.6-11.3); RBC Red Blood Cell Count 4.72 M/uL (3.86-4.86)
[2021-05-02 13:06] LABS: Protime INR 0.98
[2021-05-02 14:09] LABS: Potassium 3.9 mmol/L (3.5-5.1)
[2021-05-08] MEDS ORDERED: Ringers Lactate 1,000 ML IV ONE (06:25)
[2021-05-08] MEDS ORDERED: CEFAZOLIN/SWI 2gm 2 GM/20 ML SYR ONE (06:26)
[2021-05-08] MEDS ORDERED: ACETAMINOPHEN 500 MG TAB ONE (06:50)
[2021-05-08] MEDS ORDERED: ACETAMINOPHEN 500 MG TAB PO ONE (06:55)
[2021-05-08] MEDS ORDERED: LIDOCAINE 1% W/EPI 1:100,000 MDV 20 ML VIAL ONE (06:58)
[2021-05-08] MEDS ORDERED: VASOPRESSIN 20 UNIT/ML VIAL ONE (06:59)
[2021-05-08] MEDS ORDERED: NA CHLORIDE 0.9% 100 ML IV ONE (06:59)
[2021-05-08] MEDS ORDERED: propofoL 200 MG/20 ML VIAL IV ONE (07:07)
[2021-05-08] MEDS ORDERED: dexAMETHasone 10 MG/ML VIAL ONE (07:08)
[2021-05-08] MEDS ORDERED: MIDAZOLAM HCL 2 MG/2 ML INJ ONE (07:08)
[2021-05-08] MEDS ORDERED: FENTANYL CITR 250 MCG/5 ML ONE (07:08)
[2021-05-08] MEDS ORDERED: LIDOCAINE 1% MPF 5 ML VIAL ONE (07:08)
[2021-05-08] MEDS ORDERED: ONDANSETRON 4 MG/2 ML VIAL ONE (07:09)
[2021-05-08] MEDS ORDERED: ROCURONIUM 50 MG/5 ML VIAL IV ONE (07:09)
[2021-05-08] MEDS ORDERED: EPHEDRINE SULF 50 MG/ML VIAL ONE (08:01)
[2021-05-08] MEDS: Ringers Lactate 1,000 ML IV ONE ×2 (09:01→09:20)
[2021-05-08 10:22] VITALS: O2SAT 99
[2021-05-08] MEDS ORDERED: PROMETHAZINE INJ 25 MG/ML AMP IV PRN (10:35)
[2021-05-08] MEDS ORDERED: HYDROCODONE/APAP 5/325 MG TAB PO PRN (10:35)
[2021-05-08] MEDS ORDERED: MEPERIDINE HCL 25 MG/ML SYR IM PRN (10:35)
[2021-05-08] MEDS ORDERED: HOME MED 1 EA UNK (Estradiol [Estrace] 42.5 GM Cream.Appl) VG SCH (10:45)
--- NOTE | 2021-05-08 10:47 | P.BOP ---
Preoperative diagnosis: recurrent vault anterior and posterior prolapse, large perineocele Postoperative diagnosis: same Primary procedure: colpocleisis repeat/posterior defect/perineocele repair Secondary procedure: perineal body reconstruction Litigation Partner: Isatu Golden Estimated blood loss: minimal Specimen: none Findings: 0/-1/-1/6/thin(perineocele)/3/0/0/n/a, PB seperated, raphe disruption Anesthesia: General Complications: None Fluids & blood products: Uo 200 Transferred to: Recovery Room Condition: Good
[2021-05-08 11:17] VITALS: BP 133/64; TEMP 97.2
[2021-05-08] MEDS ORDERED: TRAZODONE 50 MG TABLET PO SCH (21:00)
[2021-05-08] MEDS ORDERED: GABAPENTIN 100 MG CAP PO SCH (21:00)
[2021-05-09] MEDS ORDERED: AMLODIPINE 10 MG TAB PO SCH (09:00)
[2021-05-09] MEDS ORDERED: HOME MED 1 EA UNK (Cranberry [Cranberry] 500 MG Capsule) PO SCH (09:00)
[2021-05-09] MEDS ORDERED: CITALOPRAM 10 MG TABLET PO SCH (09:00)
[2021-05-09] MEDS ORDERED: HOME MED 1 EA UNK (Omeprazole [Prilosec] 40 MG Capsule.Dr) PO SCH (09:00)
--- NOTE | 2021-05-10 09:20 | OP ---
Date of Procedure: 05/08/2021 Surgeon: Ingrid Martinez MD Consumer Loan Specialist: Isatu Hooks. Preoperative Diagnoses: Recurrent vaginal wall prolapse, anterior and posterior prolapse as well and large perineocele. Postoperative Diagnoses: Recurrent vaginal wall prolapse, anterior and posterior prolapse as well an d large perineocele. Procedures Performed: Repeat colpocleisis, posterior defect repair, perineocele repair which was ext ensive with possible sphincteroplasty as well and perineal body reconstruction. Estimated Blood Loss: Minimal. Specimens: No specimens. Anesthesia: General. Complications: No complications. Drains: Mike catheter was removed after the procedure. Her urine output was 200. Disposition: She was transferred to the recovery room in stable condition. 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 She has done significantly well in the first 6 months. At 6-month evaluation, she was found to have a significant perineocele with a small posterior defect. The vaginal wall did not appear to be lowered. At this point, she was counseled on the necessity f or perineocele repair and distal posterior wall defect repair to protect and prevent the recurrence o f vaginal prolapse. However, the patient has had significant personal family problem where her and zenaida was unable to proceed with her surgery. When she came back for re-evaluation recently, her vault a lso seemed to have descended with the progression in her posterior defect as well as the perineocele. There was significant descent of the entire perineum protruding out as she also strains for having her bowel movement, probably the rhaphe is also detached. The patient was counseled on all the benefits and risks of the procedure. She wanted to proceed with surgical repair, so she was consented and brought to the hospital. 2 g of Ancef were given and SCDs were placed after she was taken back to OR and general anesthesia wa s given. She was placed in dorsal lithotomy position using Ousmane stirrups. Then vulva, vagina, brigitte neum, and lower abdomen were prepped and draped in a sterile fashion. Mike was placed to drain the bladder. The anterior-posterior sanchez were reassessed. Her POP-Q was 0, -1, -1, 6. Then, perineoce le was very obvious 0 and then 3, 0, 0, NA. The perineal body appeared to be completely fr om each other. The raphae appears to have been disrupted. The plan was to perform a repeat colpocleisis as there was at least 4 cm of the anterior wall from th e external meatus. This appeared to be significantly descended. Rectovaginal exam was performed and I was able to appreciate the perineocele fully. The entire perineal body had to down and brought together, so plan was made to do the colpocleisis first followed by the distal rectocele rep air and then the perineocele repair and perineal body reconstruction. Then, a triangular skin incision was made on the anterior wall starting at the bladder neck and comin g down to the area of the sanchez. The dilute vasopressin was injected and the epithelium was taken do wn with the help of Metzenbaum scissors. Once that was done, then the posterior wall larger triangle was made. Part of the kacy-shaped incision was made for the distal posterior defect repair. Onc e the epithelium was raised with the help of the vasopressin, then de-epithelialization was done. Th en, the anterior and posterior sanchez were stitched together using interrupted 2-0 Vicryl sutures x3. This invaginated and brought the colpocleisis together. The vaginal epithelial edges were raised on the anterior as well as the posterior wall. The dissection on the posterior wall was taken down all the way to the perineum, the levators, and then the perineum and the distal part of the perineal inc ision. Another triangle incision was made on the skin to be able to access this. Once this was done , I took the incision all the way to the external sphincter and an end-to-end repair was performed th ere at the end with the help of 0 Vicryl sutures. Then, the perineal body reconstruction was perform ed with the help of 2-0 PDS sutures x3. As this area was completely replaced by scar tissue, I deeme d that this would be a better holding repair for the patient. Once all the dissection was performed, rectovaginal exam was performed to discern all the deep transverse perinei and the scar there. Thes e 2 ends were brought together. At the distal most end of the posterior defect, the alleviators were also plicated together. Once this was done, there was a structure to the perineal body and 2-0 Vicr yl another layer of sutures were placed to bring the perineal body together and the PDS sutures were buried under. Then, posterior defect of the anterior wall and posterior wall, colpocleisis, epitheli al flaps were closed with the help of 2-0 Vicryl in a continuous running fashion. This suture was en ded at least a cm above the hymen and rest of the incision was closed with the help of 3-0 Vicryl in a continuous running fashion going down. Once I was at the perineal body, subcutaneous and subcuticu lar sutures were placed to close the entire incision. Rectal exam was performed. No evidence of any trauma or foreign body here. Then, the Mike catheter was drained and it was removed. Instrument, needle, and sponge counts were done and were correct at the end of case. She did not have to have a cystoscopy. EBL minimal. Counts correct. Voiding trial and discharge home as planned. GIOVANNA/JOE Voice ID: [id number] Report ID: [id number]
== END 2021-05-08 12:12 | disposition home or self-care (01) ==
LOC: OR 06:23
PROVIDERS: ATTEND Obstetrics & Gynecology
PROC: 0JQC0ZZ Repair Pelvic Region Subcutaneous Tissue and Fascia, Open Approach (ICD-10-PCS; 2021-05-08)
PROC: 0JQB0ZZ Repair Perineum Subcutaneous Tissue and Fascia, Open Approach (ICD-10-PCS; 2021-05-08)
PROC: 0ULG7ZZ Occlusion of Vagina, Via Natural or Artificial Opening (ICD-10-PCS; principal; 2021-05-08 07:30)
DX: N99.3 Prolapse of vaginal vault after hysterectomy (principal); N95.2 Postmenopausal atrophic vaginitis; M54.50 Low back pain, unspecified; F32.0 Major depressive disorder, single episode, mild; K59.00 Constipation, unspecified; Z20.822 Contact with and (suspected) exposure to COVID-19
CPT/HCPCS: 57120; 57250; 85025; 80048; 36415; 86900; 86850; 85610; 86901; 85730; 81003; U0003; J2704; J2250; J3010; J1100; J0690; J7120 ×2; J2405